=== PATIENT | male | born 1960 | race Caucasian/White ===

== ENCOUNTER → 2017-12-26 16:01 | Outpatient (CLI) | payer BC, SELFPAY ==
--- NOTE | 2017-12-26 | XR_ITS ---
XR calcaneus LT min 2V CLINICAL INDICATION: Heel pain ORDERING PHYSICIAN: Bal Heard MD PATIENT AGE: 57 years COMPARISON: None FINDINGS: There is a small calcaneal spur at 7 mm without obvious erosive change. Prominent enthesophyte is present at the Achilles insertion. No lytic or blastic changes apparent. There are mild degenerative changes of the midfoot. IMPRESSION: Small calcaneal spur and Achilles enthesophyte
== END ==
PROVIDERS: PCP Family Medicine; Visit Provider Family Medicine
DX: M79.672 Pain in left foot (principal)
CPT/HCPCS: 73650

== ENCOUNTER → 2020-02-11 08:57 | Outpatient (CLI) | payer BC, SELFPAY ==
--- NOTE | 2020-02-11 08:57 | CT_ITS ---
PROCEDURE: CT ABDOMEN PELVIS W CON CLINICAL INDICATION: prostate cancer Follow-up prostate cancer, evaluate for metastasis COMPARISON: No exams were available for comparison TECHNIQUE: IV Contrast: 75ML OPTIRAY 350 Oral Contrast 450ml Redicat Axial images obtained with sagittal and coronal reformats. All CT scans at the facility use one or more dose reduction, viz: automated exposure control, ma/kV adjustment per patient size (including targeted exams where dose is matched to indication, i.e. head), or iterative reconstruction technique. FINDINGS: LOWER THORAX: No acute finding ABDOMEN & PELVIS: The liver, spleen, pancreas have an unremarkable appearance. There is some mild nodularity of the left adrenal gland which is nonspecific. The gallbladder and right adrenal gland have an unremarkable appearance. There is an indeterminate hypodensity involving the left kidney superiorly and laterally at 9 mm. Hypodensity involves the right kidney medially at 6 mm and may be due to small renal cyst. Unremarkable appendix. There is mild thickening of the descending and sigmoid colon with scattered diverticula. No pelvic mass, adenopathy, or abnormal fluid collection is evident. There is thickening of the wall the urinary bladder which is nondistended. There are degenerative changes of the lumbar spine and hips. There is fusion of the SI joints right more extensive than left. IMPRESSION: 1. No convincing evidence of metastatic disease. 2. Indeterminate 9 mm hypodensity of the left kidney. Consider ultrasound for further evaluation to determine cystic or solid nature Dictated by: Gary Anand MD 02/12/2020 08:27 Electronically signed by Gary Anand MD in [facility] 02/12/2020 08:27
--- NOTE | 2020-02-11 08:57 | NM_ITS ---
PROCEDURE: NM BONE SCAN WHOLE BODY CLINICAL INDICATION: Prostate cancer COMPARISON: No exams were available for comparison TECHNIQUE: Dose: 26.2 mCi technetium MDP IV FINDINGS: Nonspecific periarticular activity noted at the hips, knees, feet and ankles and at the sternoclavicular and costal sternal junction with nonspecific increased activity in the lower cervical spine. No convincing evidence of metastatic disease. IMPRESSION: No convincing evidence of metastatic disease Dictated by: Gary Anadn MD 02/12/2020 08:46 Electronically signed by Gary Anand MD in [facility] 02/12/2020 08:46
[2020-02-11 10:01] LABS: Blood Urea Nitrogen 17 mg/dl (9-20); Estimated Glomerular Filt Rate 99 ml/min (>60); GFR (African American) 120 ML/MIN (>60)
== END ==
PROVIDERS: PCP Family Medicine; Visit Provider Urology
DX: C61 Malignant neoplasm of prostate (principal)
CPT/HCPCS: 36415; 74177; 78306; 82565; 84520; A9503; Q9967

== ENCOUNTER → 2020-09-08 12:21 | Outpatient (CLI) | payer BC, SELFPAY ==
--- NOTE | 2020-09-08 12:29 | XR_ITS ---
PROCEDURE: XR KUB CLINICAL INDICATION: KIDNEY STONE Follow-up renal stone COMPARISON: CT CT ABDOMEN PELVIS W CON from 02/11/2020 FINDINGS: There are 2 faint calcific densities in the left lower pelvic region which could be due to phleboliths. No other significant anomalies evident. There is fusion of the SI joints superiorly. Mild degenerative changes of the hips. IMPRESSION: As above, no acute finding Dictated by: Gary Anand MD 09/08/2020 17:06 Gary Anand MD in [facility] 09/08/2020 17:06
[2020-09-17 17:38] LABS: Specimen Type STONE
[2020-09-17 17:50] LABS: Ca oxalate dihydrate 0
[2020-09-17 17:51] LABS: Ammonium acid urate 0; Calcium bilirubinate 0; Calcium carbonate 0; Calcium phosphate 10%; Cholesterol 0; Magnesium ammon phos 90%; Sodium acid urate 0; Uric acid dihydrate 0
[2020-09-17 17:53] LABS: Photo SCANNED RESULTS
== END ==
PROVIDERS: Visit Provider Family Medicine
DX: N20.0 Calculus of kidney (principal)
CPT/HCPCS: 74018; 82370

== ENCOUNTER → 2021-01-24 15:29 | Outpatient (CLI) | payer BC, SELFPAY ==
--- NOTE | 2021-01-24 15:36 | CT_ITS ---
PROCEDURE: CT ABDOMEN PELVIS WO CON CLINICAL INDICATION: STONE PROTOCOL Left flank pain COMPARISON: CT CT ABDOMEN PELVIS W CON from 02/11/2020 TECHNIQUE: Axial images obtained with sagittal and coronal reformats. All CT scans at the facility use one or more dose reduction, viz: automated exposure control, ma/kV adjustment per patient size (including targeted exams where dose is matched to indication, i.e. head), or iterative reconstruction technique. FINDINGS: LOWER THORAX: No acute finding ABDOMEN & PELVIS: Liver, gallbladder, spleen, adrenal glands, pancreas, and kidneys have an unremarkable appearance. No renal or ureteral calculi. No hydronephrosis. No intestinal obstruction or free air. The there appears to be a diverticulum projecting medially from the descending duodenum. No intestinal obstruction or free air. No evidence of appendicitis or diverticulitis. Mild osteoarthritic changes of the hips and mild degenerative changes of the thoracic and lumbar spine. IMPRESSION: No acute finding Dictated by: Gary Anand MD 01/25/2021 12:11 Gary Anand MD in [facility] 01/25/2021 12:11
== END ==
PROVIDERS: PCP Family Medicine; Visit Provider Family Medicine
DX: N23 Unspecified renal colic (principal)
CPT/HCPCS: 74176

== ENCOUNTER → 2021-03-01 16:33 | Outpatient (CLI) | payer BC, SELFPAY ==
[2021-03-01 17:03] LABS: Basophils % 0.3 % (0.1-2.0); Eosinophils # 0.1 K/mm3 (0.0-0.4); Eosinophils % 0.3 % (0.1-12.0); Hematocrit 45.9 % (42.0-52.0); Hemoglobin 15.4 g/dL (14.1-18.0); Lymphocytes # 0.9 K/mm3 (0.7-4.5); Lymphocytes % 5.6 % (10-50); Mean Corpuscular HGB Conc 33.5 g/dL (31.8-35.4); Mean Corpuscular Hemoglobin 29.3 pg (27.0-31.2); Mean Corpuscular Volume 87.6 fl (80-94); Mean Platelet Volume 7.4 fl (7.4-10.4); Monocytes % 6.3 % (1.7-9.3); Neutrophils # 14.1 K/mm3 (1.8-7.8); Neutrophils % 87.5 % (37.0-80.0); Platelet Count 301 K/mm3 (142-424); Red Blood Count 5.24 M/mm3 (4.60-6.20); Red Cell Distribution Width 13.7 % (11.5-17.5); White Blood Count 16.2 K/mm3 (4.8-10.8)
[2021-03-01 17:07] LABS: MANUAL DIFFERENTIAL MANUAL DIFFERENTIAL (MANUAL DIFF)
[2021-03-01 18:59] LABS: Lymphocytes % 9 % (10-50); Monocytes % 8 % (2-9); Neutrophils % 83 % (42-76); Platelet Estimate Normal; RBC Morphology Normal; Total Cells Counted 100
== END ==
PROVIDERS: PCP Family Medicine; Visit Provider Physician Assistant
DX: Z20.822 Contact with and (suspected) exposure to COVID-19 (principal); D72.829 Elevated white blood cell count, unspecified
CPT/HCPCS: 36415; 85007; 85025; U0003

== ENCOUNTER 2021-03-07 22:06 | Emergency (ER) | payer BC, SELFPAY ==
[2021-03-07 22:13] VITALS: BP 169/98; PULSE 78; RESP 16; TEMP 37; O2SAT 96; BMI 37.0
--- NOTE | 2021-03-07 22:23 | ECG_ITS ---
APPROVED REPORT Exam: Resting ECG HR:71 bpm ECG Measurements Heart Rate 71 AXES MD 148 P 49 QRSd 86 QRS -2 QT 408 T -7 QTc 443 Conclusion Normal sinus rhythm Minimal voltage criteria for LVH, may be normal variant Nonspecific T wave abnormality Abnormal ECG Electronically signed by : Charles Lorenzana, 03/08/2021 17:31:59
--- NOTE | 2021-03-07 22:23 | XR_ITS ---
PROCEDURE: XR CHEST 2V CLINICAL HISTORY: chest pain COMPARISON: No exams were available for comparison FINDINGS: The cardiomediastinal silhouette and pulmonary vascularity are within normal limits. The lungs are clear without infiltrates, suspicious nodules, or pleural effusions. Degenerative changes thoracic spine. IMPRESSION: No acute findings. Dictated by: Gary Anand MD 03/08/2021 05:31 Gary Anand MD in [facility] 03/08/2021 05:31
[2021-03-07 22:41] LABS: Basophils # 0.1 K/mm3 (0-0.2); Basophils % 0.8 % (0.1-2.0); Eosinophils # 0.4 K/mm3 (0.0-0.4); Eosinophils % 3.8 % (0.1-12.0); Hemoglobin 14.1 g/dL (14.1-18.0); Lymphocytes # 2.6 K/mm3 (0.7-4.5); Lymphocytes % 23.4 % (10-50); Mean Corpuscular HGB Conc 34.4 g/dL (31.8-35.4); Mean Corpuscular Hemoglobin 29.4 pg (27.0-31.2); Mean Corpuscular Volume 85.4 fl (80-94); Mean Platelet Volume 7.4 fl (7.4-10.4); Monocytes # 0.9 K/mm3 (0.1-1.0); Monocytes % 8.1 % (1.7-9.3); Neutrophils # 7.1 K/mm3 (1.8-7.8); Neutrophils % 63.9 % (37.0-80.0); Platelet Count 430 K/mm3 (142-424); Red Cell Distribution Width 13.5 % (11.5-17.5); White Blood Count 11.1 K/mm3 (4.8-10.8)
[2021-03-07 22:43] LABS: Alanine Aminotransferase 80 U/L (12-78); Albumin Level 4.5 g/dl (3.5-5.0); Albumin/Globulin Ratio 1.3 (1.1-1.8); Alkaline Phosphatase 93 U/L (38-126); Amylase 74 U/L (30-110); Anion Gap 16.6 mEq/L (5-15); Aspartate Amino Transferase 46 U/L (17-59); Bilirubin,Total 0.5 mg/dl (0.2-1.3); Blood Urea Nitrogen 23 mg/dl (9-20); Calcium 9.8 mg/dl (8.4-10.2); Carbon Dioxide 25 mmol/L (22.0-30.0); Chloride 106 mmol/L (98-107); Creatinine Clearance Estimated 132 mL/min (50-200); Estimated Glomerular Filt Rate 76 ml/min (>60); GFR (African American) 93 ML/MIN (>60); Globulin 3.4 g/dL (1.3-3.2); Glucose 159 mg/dl (74-100); Lipase 230 U/L (23-300); Potassium 3.6 mmoL/L (3.5-5.1); Sodium 144 mmol/L (136-145); Total Protein,Serum 7.9 g/dl (6.3-8.2)
[2021-03-07 22:48] LABS: C-Reactive Protein 24.7 mg/L (0-4)
[2021-03-07 22:57] LABS: Troponin I 0.02 ng/ml (0.00-0.034)
[2021-03-07 23:02] VITALS: BP 144/91; PULSE 74; O2SAT 97
[2021-03-07 23:02] LABS: Procalcitonin 0.064 ng/mL (0.0-2.0)
[2021-03-07 23:20] LABS: Erythrocyte Sedimentation Rate 49 mm/hr (0-20)
[2021-03-07 23:30] VITALS: BP 151/89; PULSE 74; O2SAT 95
[2021-03-08] VITALS: BP 148/89; PULSE 67; O2SAT 97
[2021-03-08 00:14] VITALS: BP 151/90; PULSE 60; O2SAT 98
[2021-03-08 00:30] VITALS: BP 147/87; PULSE 63; O2SAT 98
--- NOTE | 2021-03-08 01:14 | HMH.EDGENADL ---
ED Disposition Clinical Impression: Esophageal abnormality Chest pain Qualifiers: Chest pain type: unspecified Qualified Code(s): R07.9 - Chest pain, unspecified Disposition: Home, Self-Care Condition on Discharge: Good Instructions: DI for Hiatal Hernia Additional Instructions: call pcp in am for follow up Referrals: Bal Heard MD [Primary Care Provider] - - Critical Care Critical Care Time: No Attestation: On 03/07/21, the high probability of a clinically significant, sudden or life threatening deterioration of the following system(s) required my full and direct attention, intervention and personal management. The time I documented below is in addition to time spent performing reported procedures but includes the following listed in this critical care notation. Medical Decision Making - Medical Records Medical records reviewed: Yes: I reviewed the patient's medical records. - Sean Inquiry Pt receiving controlled substance: No Vital Signs: 03/07/21 22:13 03/07/21 23:02 03/07/21 23:30 Temperature 98.6 F Temperature Source Oral Pulse Rate 74 74 Pulse Rate [Right] 78 Respiratory Rate 16 Blood Pressure 144/91 H 151/89 H Blood Pressure [Right Arm] 169/98 H Blood Pressure Mean 110 103 Blood Pressure Mean [Right Arm] 121 Blood Pressure Source [Right Arm] Automatic Cuff Blood Pressure Position [Right Arm] Supine 02 Sat by Pulse Oximetry 96 97 95 Oxygen Delivery Method Room Air 03/08/21 00:00 03/08/21 00:14 03/08/21 00:30 Temperature Temperature Source Pulse Rate 67 60 63 Pulse Rate [Right] Respiratory Rate Blood Pressure 148/89 H 151/90 H 147/87 H Blood Pressure [Right Arm] Blood Pressure Mean 105 110 107 Blood Pressure Mean [Right Arm] Blood Pressure Source [Right Arm] Blood Pressure Position [Right Arm] 02 Sat by Pulse Oximetry 97 98 98 Oxygen Delivery Method - Lab Data Lab results reviewed: Yes: I reviewed the patient's lab results. Lab Results 03/07/21 22:20: WBC 11.1 H, RBC 4.80, Hgb 14.1, Hct 41.0 L, MCV 85.4, MCH 29.4, MCHC 34.4, RDW 13.5, Plt Count 430 H, MPV 7.4, Neut % (Auto) 63.9, Lymph % (Auto) 23.4, [place] % (Auto) 8.1, Eos % (Auto) 3.8, Baso % (Auto) 0.8, Neut # (Auto) 7.1, Lymph # (Auto) 2.6, [place] # (Auto) 0.9, Eos # (Auto) 0.4, Baso # (Auto) 0.1, ESR 49 H 03/07/21 22:20: Sodium 144, Potassium 3.6, Chloride 106, Carbon Dioxide 25, Anion Gap 16.6 H, BUN 23 H, Creatinine 1.00, Estimated Creat Clear 132, Estimated GFR 76, Est GFR ( Amer) 93, Glucose 159 H, Calcium 9.8, Total Bilirubin 0.5, AST 46, ALT 80 H, Alkaline Phosphatase 93, Troponin I 0.02, C-Reactive Protein 24.7 H, Total Protein 7.9, Albumin 4.5, Globulin 3.4 H, Albumin/Globulin Ratio 1.3, Amylase 74, Lipase 230, Procalcitonin 0.064 Result diagrams: 03/07/21 22:20 03/07/21 22:20 Orders (Tests/Meds): ED MEDICATIONS Generic Name Dose Route Start Last Admin Trade Name Freq PRN Reason Stop Dose Admin Sodium Chloride 1,000 mls @ 999 mls/hr 03/07/21 22:30 03/07/21 22:37 Sod Chlor 0.9% 1000ml Bag IV 03/07/21 23:30 999 mls/hr .Q1H1M LIZET Administration Sodium Chloride 8 ml 03/07/21 22:23 Sodium Chloride 0.9% 10ml Vial IV 04/06/21 22:22 NEEDED PRN dilute pepcid Discontinued Medications Generic Name Dose Route Start Last Admin Trade Name Freq PRN Reason Stop Dose Admin Aspirin 324 mg 03/07/21 22:38 03/07/21 22:39 Aspirin 81mg Chewable Tablet PO 03/07/21 22:39 324 mg ONCE ONE Administration Famotidine 20 mg 03/07/21 22:23 03/07/21 22:37 Famotidine 20mg/2ml Vial IV 03/07/21 22:24 20 mg ONCE ONE Administration Ketorolac Tromethamine 30 mg 03/07/21 22:23 03/07/21 22:37 Ketorolac 30mg/Ml Vial IV 03/07/21 22:24 30 mg ONCE ONE Administration Metoclopramide HCl 10 mg 03/07/21 22:23 03/07/21 22:37 Metoclopramide Hcl 10mg/2ml Vial IVP 03/07/21 22:24 10 mg ONCE ONE Administrati
[2021-03-08 01:33] LABS: Troponin I 0.02 ng/ml (0.00-0.034)
[2021-03-08 01:43] VITALS: BP 145/82; PULSE 63; RESP 14; TEMP 37; O2SAT 97
== END 2021-03-08 01:46 | disposition home or self-care (01) ==
PROVIDERS: Emergency Provider Emergency Medicine; PCP Family Medicine
DX: K22.9 Disease of esophagus, unspecified (principal); R13.10 Dysphagia, unspecified; E11.65 Type 2 diabetes mellitus with hyperglycemia; I10 Essential (primary) hypertension; Z88.1 Allergy status to other antibiotic agents; Z79.899 Other long term (current) drug therapy
CPT/HCPCS: 71046; 80053; 82150; 83690; 84145; 84484; 85025; 85651; 86140; 93005; 96375; 99282; J2405

== ENCOUNTER → 2021-12-11 14:42 | Outpatient (CLI) | payer OTHER, SELFPAY ==
--- NOTE | 2021-12-11 15:01 | MR_ITS ---
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 vertigo x5wks. weakness. FINDINGS: Multiplanar MR imaging of the brain was performed without contrast. There is no evidence of intracranial hemorrhage or mass. The ventricular size is normal. There is no evidence of shift of the midline structures. No abnormal extra-axial fluid collection is identified. The posterior fossa and brainstem have an unremarkable appearance. No area of abnormal restricted diffusion is identified. Normal major vessel vascular flow voids are seen. IMPRESSION: Unremarkable brain with no acute intracranial abnormality. Reviewed, Interpreted and Dictated by Handy Hart III, MD Transcribed by Candie Napier Authenticated by Handy Hart III, MD on 12/11/2021 04:33:01 PM [facility]
== END ==
PROVIDERS: PCP Family Medicine; Visit Provider Family Medicine
DX: G51.0 Bell's palsy (principal); R42 Dizziness and giddiness
CPT/HCPCS: 70551

== ENCOUNTER 2021-12-13 15:28 | Inpatient (IN) | payer OTHER, SELFPAY ==
[2021-12-13] VITALS (10 sets, daily range): BP systolic 100–155; BP diastolic 64–135; PULSE 68–120; RESP 13–20; TEMP 36.1–36.7; O2SAT 95–100; BMI 33.0; BMI 29.5
--- NOTE | 2021-12-13 17:38 | HMH.EDGENADL ---
ED Disposition Clinical Impression: HARINI (acute kidney injury) Atrial flutter Qualifiers: Atrial flutter type: unspecified Qualified Code(s): I48.92 - Unspecified atrial flutter Disposition: Admitted As Inpatient Condition on Discharge: Good Referrals: Bal Heard MD [Primary Care Provider] - - Critical Care Critical Care Time: Yes (35 min) Attestation: On 12/13/21, the high probability of a clinically significant, sudden or life threatening deterioration of the following system(s) required my full and direct attention, intervention and personal management. The time I documented below is in addition to time spent performing reported procedures but includes the following listed in this critical care notation. Vital system(s) involved:: Circulatory Failure, Central Nervous System, Metabolic Failure, Respiratory Failure My critical care processes included: Assessment & monitoring of V/S, Initial and Re-exams, Data Review/Interpretation, Coordinating Care, Medication Orders and management, Documentation Medical Decision Making - Sean Inquiry Pt receiving controlled substance: No Vital Signs: 12/13/21 15:30 12/13/21 19:12 12/13/21 19:15 Temperature 98.1 F Temperature Source Oral Pulse Rate 86 89 Pulse Rate [Apical] 83 Respiratory Rate 20 15 14 Blood Pressure Blood Pressure [Right Arm] 155/135 H Blood Pressure Mean Blood Pressure Mean [Right Arm] 141 Blood Pressure Source [Right Arm] Automatic Cuff Blood Pressure Position [Right Arm] Sitting 02 Sat by Pulse Oximetry 95 99 99 Oxygen Delivery Method Room Air 12/13/21 19:17 12/13/21 19:30 12/13/21 19:31 Temperature Temperature Source Pulse Rate 68 78 Pulse Rate [Apical] Respiratory Rate 17 13 13 Blood Pressure 116/64 100/79 L Blood Pressure [Right Arm] Blood Pressure Mean 84 82 Blood Pressure Mean [Right Arm] Blood Pressure Source [Right Arm] Blood Pressure Position [Right Arm] 02 Sat by Pulse Oximetry 100 100 Oxygen Delivery Method - Lab Data Lab Results 12/13/21 18:45: WBC 13.2 H, RBC 5.34, Hgb 16.0, Hct 51.0, MCV 95.4 H, MCH 30.0, MCHC 31.5 L, RDW 13.1, Plt Count 295, MPV 9.5, Neut % (Auto) 91.2 H, Lymph % (Auto) 3.0 L, [place] % (Auto) 5.4, Eos % (Auto) 0.0 L, Baso % (Auto) 0.3, Neut # (Auto) 12.1 H, Lymph # (Auto) 0.4 L, [place] # (Auto) 0.7, Eos # (Auto) 0.0, Baso # (Auto) 0.0, Total Counted 100, Neutrophils % (Manual) 92 H, Lymphocytes % (Manual) 2 L, Monocytes % (Manual) 6, Platelet Estimate Normal, RBC Morphology Normal 12/13/21 18:45: Sodium 117 L, Potassium 5.2 H, Chloride 75 L, Carbon Dioxide 17 L, Anion Gap 30.2 H, BUN 114 H*, Creatinine 2.50 H, Estimated Creat Clear 46, Estimated GFR 26 L, Est GFR ( Amer) 32 L, Glucose 1037 H*, Calcium 9.0, Total Bilirubin 1.0, AST 32, ALT 52, Alkaline Phosphatase 111, Troponin I 0.05 H, Total Protein 6.4, Albumin 3.7, Globulin 2.7, Albumin/Globulin Ratio 1.4 12/13/21 18:45: SARS-CoV-2 (PCR) Not detected, Influenza A Untype (PCR) Not detected, Influenza Type B (PCR) Not detected 12/13/21 18:45: PT 12.4, INR 1.11 H, APTT 27.1 Result diagrams: 12/13/21 18:45 12/13/21 18:45 Orders (Tests/Meds): ED MEDICATIONS Generic Name Dose Route Start Last Admin Trade Name Freq PRN Reason Stop Dose Admin Diltiazem HCl 100 mg/ Sodium 100 mls @ 5 mls/hr 12/13/21 19:00 12/13/21 19:15 Chloride IV 01/12/22 18:59 5 mls/hr .Q20H LIZET Administration Protocol Sodium Chloride 1,000 mls @ 999 mls/hr 12/13/21 19:45 Sod Chlor 0.9% 1000ml Bag IV 12/13/21 20:45 .Q1H1M LIZET Sodium Chloride 1,000 mls @ 999 mls/hr 12/13/21 19:45 Sod Chlor 0.9% 1000ml Bag IV 12/13/21 20:45 .Q1H1M LIZET Sodium Chloride 1,000 mls @ 999 mls/hr 12/13/21 19:45 Sod Chlor 0.9% 1000ml Bag IV 12/13/21 20:45 .Q1H1M LIZET Insulin Human Regular 100 unit 101 mls @ 10.537 mls/hr 12/13/21 19:45 12/13/21 19:42 / Sodium Chloride IV 01/12/22 19:44 1
--- NOTE | 2021-12-13 17:44 | CT_ITS ---
PROCEDURE INFORMATION: Exam: CT Head Without Contrast Exam date and time: 12/13/2021 5:44 PM Age: 61 years old Clinical indication: Dizziness and speech disturbance and other: Vertigo; Aphasia; Additional info: Slurred speech, ataxia TECHNIQUE: Imaging protocol: Computed tomography of the head without contrast. Total images: 292 Radiation optimization: All CT scans at this facility use at least one of these dose optimization techniques: automated exposure control; mA and/or kV adjustment per patient size (includes targeted exams where dose is matched to clinical indication); or iterative reconstruction. COMPARISON: MR HEAD/BRAIN WO CON 12/11/2021 3:13 PM FINDINGS: Brain: Mild generalized atrophy. Mild bilateral white matter hypodensities which are nonspecific but most commonly associated with chronic microvascular ischemia in this age group. No extra-axial fluid collections. No evidence of acute intracranial hemorrhage. Ward-white differentiation is well maintained. No CT evidence of large territory acute or subacute intracranial ischemia/infarct. No intracranial mass lesions. No midline shift or herniation. Cerebral ventricles: Ventricles normal. Paranasal sinuses: Visualized paranasal sinuses are clear. Mastoid air cells: Visualized mastoid air cells are clear. Orbital cavity: Visualized orbital contents demonstrate no acute abnormality. Vasculature: No asymmetric vascular hyperdensities suggestive of thrombosis are identified. Bones/joints: The calvarium and visualized facial bones are intact. There is a 12 mm rounded expansile lesion associated with the root of a right maxillary premolar suggesting an odontogenic cyst. It demonstrates nonaggressive features favoring a benign process. Recommend nonemergent dental consult. Soft tissues: The scalp and visualized soft tissues demonstrate no acute abnormality. Other findings: The IACs are grossly normal. The sella is grossly normal. IMPRESSION: 1. No acute intracranial process. No intracranial hemorrhage or mass effect. 2. Atrophy and chronic microvascular changes consistent with age. 3. 12 mm expansile low-density lesion associated with a right maxillary premolar root suggesting an odontogenic cystic lesion demonstrating nonaggressive features. Recommend nonemergent dental consult.
--- NOTE | 2021-12-13 18:48 | XR_ITS ---
PROCEDURE INFORMATION: Exam: XR Chest Exam date and time: 12/13/2021 6:48 PM Age: 61 years old Clinical indication: Shortness of breath; Additional info: Aflutter TECHNIQUE: Imaging protocol: XR of the chest. Views: 1 view. Total images: 1 COMPARISON: CR XR CHEST 2V 03/07/2021 10:31 PM FINDINGS: Lungs: Low lung volumes. Pulmonary vasculature grossly normal. No gross pulmonary infiltrates or edema pattern. Granulomatous calcification in the left apex unchanged. Pleural spaces: No pleural effusion. No pneumothorax. Heart/Mediastinum: Heart size normal. No tracheal/mediastinal shift. Vasculature: Mild aortic ectasia/tortuosity. Bones/joints: No acute osseous abnormalities are identified. Moderate thoracic spondylosis. IMPRESSION: No acute thoracic process. No significant change from 03/07/2021.
--- NOTE | 2021-12-13 18:48 | ECG_ITS ---
APPROVED REPORT Exam: Resting ECG HR:101 bpm ECG Measurements Heart Rate 101 AXES PA P 266 QRSd 122 QRS -20 QT 322 T 238 QTc 417 Conclusion Atrial flutter with variable AV block with premature ventricular or aberrantly conducted complexes Nonspecific intraventricular conduction delay ST & T wave abnormality, consider inferior ischemia ST & T wave abnormality, consider anterolateral ischemia Abnormal ECG Electronically signed by : Charles Lorenzana MD 12/14/2021 17:33:39
--- NOTE | 2021-12-13 18:49 | PC.NURSE ---
Patient was noted to have a heartrate of 170 after previously not having an elevated heart rate. EKG was performed by Ladonna Conte and patient was moved to a cardiac room. Patient continued to have an elevated heart rate. MD notified. Adenosine ordered and given per md. Patient remains alert and oriented and stable.
[2021-12-13 19:08] LABS: Coronavirus 19, PCR Not Detected (NotDetected); Influenza A, PCR Not Detected (NotDetected); Influenza B, PCR Not Detected (NotDetected)
[2021-12-13 19:10] LABS: Basophils % 0.3 % (0.1-2.0); Lymphocytes # 0.4 K/mm3 (0.7-4.5); Mean Corpuscular HGB Conc 31.5 g/dL (31.8-35.4); Mean Corpuscular Volume 95.4 fl (80-94); Mean Platelet Volume 9.5 fl (7.4-10.4); Monocytes # 0.7 K/mm3 (0.1-1.0); Monocytes % 5.4 % (1.7-9.3); Neutrophils # 12.1 K/mm3 (1.8-7.8); Neutrophils % 91.2 % (37.0-80.0); Platelet Count 295 K/mm3 (142-424); Red Blood Count 5.34 M/mm3 (4.60-6.20); Red Cell Distribution Width 13.1 % (11.5-17.5); White Blood Count 13.2 K/mm3 (4.8-10.8)
[2021-12-13 19:14] LABS: MANUAL DIFFERENTIAL MANUAL DIFFERENTIAL (MANUAL DIFF)
[2021-12-13 19:24] LABS: Lymphocytes % 2 % (10-50); Monocytes % 6 % (2-9); Neutrophils % 92 % (42-76); Platelet Estimate Normal; RBC Morphology Normal; Total Cells Counted 100
[2021-12-13 19:27] LABS: Troponin I 0.05 ng/ml (0.00-0.034)
[2021-12-13 19:30] LABS: Anion Gap 30.2 mEq/L (5-15); Carbon Dioxide 17 mmol/L (22.0-30.0); Potassium 5.2 mmoL/L (3.5-5.1); Sodium 117 mmol/L (136-145)
[2021-12-13 19:31] LABS: Alanine Aminotransferase 52 U/L (12-78); Albumin Level 3.7 g/dl (3.5-5.0); Albumin/Globulin Ratio 1.4 (1.1-1.8); Aspartate Amino Transferase 32 U/L (17-59); Creatinine Clearance Estimated 46 mL/min (50-200); Estimated Glomerular Filt Rate 26 ml/min (>60); GFR (African American) 32 ML/MIN (>60); Globulin 2.7 g/dL (1.3-3.2); Total Protein,Serum 6.4 g/dl (6.3-8.2)
[2021-12-13 19:32] LABS: Alkaline Phosphatase 111 U/L (38-126)
[2021-12-13 19:33] LABS: Blood Urea Nitrogen 114 mg/dl (9-20); Chloride 75 mmol/L (98-107); Glucose 1037 mg/dl (74-100)
--- NOTE | 2021-12-13 19:49 | PC.NURSE ---
paged dr bond. spoke with and discussed plan of care. paged dr frederic casarez.
[2021-12-13 19:54] LABS: Activated Partial Thrombo Time 27.1 seconds (22.8-30.6); INR 1.11 (0.9-1.1); Prothrombin Time 12.4 seconds (10.1-12.5)
[2021-12-13 20:04] LABS: ABG Base Excess -11.4 mmol/L (-2.4-2.3); ABG HCO3 13.7 mmhg (22.0-26.0); ABG Oxygen Saturation 98 % (90-100); ABG PCO2 23.3 mmhg (35.0-45.0); ABG PH 7.39 mmol/L (7.35-7.45); ABG PO2 100.1 mmhg (80-100); ABG TCO2 14.4 mmhg (23-27); Allen's Test Acceptable; Source Left Radial
[2021-12-13 20:04] LABS: Microscopic, Urine URINE MICROSCOPIC (MICROSCOPIC)
[2021-12-13 20:06] LABS: Acetone, Serum (Rapid) Moderate (None Detect)
[2021-12-13 20:06] LABS: Appearance,Urine CLEAR (Clear); Bilirubin,Urine Negative (Negative); Blood, Urine 3+ (Negative); Color,Urine YELLOW (Yellow); Glucose,Urine (UA) 3+ (Negative); Ketones,Urine TRACE (Negative); Leukocyte Esterase,Urine 1+ (Negative); Nitrate,Urine Negative (Negative); Protein,Urine TRACE (Negative); Urobilinogen,Urine 0.2 EU/dl (0.2)
[2021-12-13 20:13] LABS: Lactic Acid 1.5 mmol/L (0.7-2.1)
[2021-12-13 20:21] LABS: RBC,Urine 50-100 #/hpf (0-3); WBC,Urine 20-50 #/hpf (0-3)
[2021-12-13 20:22] LABS: Bacteria,Urine Trace /lpf
[2021-12-13 20:31] LABS: Hemoglobin A1C > 14.0 % (4.0-6.0)
--- NOTE | 2021-12-13 21:27 | PC.NURSE ---
patient up to floor via stretcher @ this time
[2021-12-13 21:57] LABS: Glucose,Random 705 mg/dL (74-100)
--- NOTE | 2021-12-13 22:06 | PC.NURSE ---
pt arrived to floor at 2126, insulin gtt at 10, cardizem at 10 at this time
[2021-12-13 22:23] LABS: Potassium 5.4 mmoL/L (3.5-5.1); Sodium 118 mmol/L (136-145)
[2021-12-13 22:26] LABS: Anion Gap 32.4 mEq/L (5-15); Calcium 9.1 mg/dl (8.4-10.2); Carbon Dioxide 17 mmol/L (22.0-30.0); Creatinine Clearance Estimated 45 mL/min (50-200); Estimated Glomerular Filt Rate 29 ml/min (>60); GFR (African American) 35 ML/MIN (>60)
[2021-12-13 22:40] LABS: Blood Urea Nitrogen 116 mg/dl (9-20); Chloride 74 mmol/L (98-107); Glucose 1039 mg/dl (74-100)
[2021-12-13 23:47] LABS: Glucose,Random 585 mg/dL (74-100)
[2021-12-14] VITALS (17 sets, daily range): BP systolic 89–142; BP diastolic 37–77; PULSE 75–148; RESP 16–20; TEMP 36.4–36.5; O2SAT 95–99; BMI 29.5
[2021-12-14 00:22] LABS: POC Glucose,Bedside 484 (70-110)
[2021-12-14 02:17] LABS: POC Glucose,Bedside 325 (70-110)
[2021-12-14 02:17] LABS: POC Glucose,Bedside 397 (70-110)
[2021-12-14 02:51] LABS: Chloride 95 mmol/L (98-107); Potassium 3.2 mmoL/L (3.5-5.1); Sodium 132 mmol/L (136-145)
--- NOTE | 2021-12-14 02:53 | PC.NURSE ---
has been at bedside t/o shift, explained to her the importance of getting accurate measurements of urine output, discussed pt's prostate removal and his inability to hold it, she did state that with her at bedside he should be able to use urinal for accurate measurement of urine, pt did have one episode of incontinence before arrived to bedside,
[2021-12-14 02:54] LABS: Anion Gap 16.2 mEq/L (5-15); Carbon Dioxide 24 mmol/L (22.0-30.0); Creatinine Clearance Estimated 58 mL/min (50-200); Estimated Glomerular Filt Rate 39 ml/min (>60); GFR (African American) 47 ML/MIN (>60)
[2021-12-14 02:55] LABS: Calcium 8.5 mg/dl (8.4-10.2); Glucose 290 mg/dl (74-100)
[2021-12-14 02:57] LABS: Blood Urea Nitrogen 107 mg/dl (9-20)
[2021-12-14 07:02] LABS: Basophils # 0.1 K/mm3 (0-0.2); Basophils % 0.5 % (0.1-2.0); Eosinophils # 0.1 K/mm3 (0.0-0.4); Eosinophils % 0.8 % (0.1-12.0); Hematocrit 42.7 % (42.0-52.0); Hemoglobin 14.8 g/dL (14.1-18.0); Lymphocytes # 0.8 K/mm3 (0.7-4.5); Lymphocytes % 5.2 % (10-50); Mean Corpuscular HGB Conc 34.7 g/dL (31.8-35.4); Mean Corpuscular Hemoglobin 30.1 pg (27.0-31.2); Mean Corpuscular Volume 86.8 fl (80-94); Mean Platelet Volume 10.5 fl (7.4-10.4); Monocytes # 1.3 K/mm3 (0.1-1.0); Monocytes % 8.8 % (1.7-9.3); Neutrophils # 12.4 K/mm3 (1.8-7.8); Neutrophils % 84.7 % (37.0-80.0); Platelet Count 213 K/mm3 (142-424); Red Blood Count 4.92 M/mm3 (4.60-6.20); Red Cell Distribution Width 13.1 % (11.5-17.5); White Blood Count 14.6 K/mm3 (4.8-10.8)
--- NOTE | 2021-12-14 07:03 | PC.NURSE ---
insulin gtt infusing at 1, diltiazem infusing at 5, NS bolus given due to hypotension per Dr. Heard, 0700 FSBS 152 has remained on 2L NC with O2 sats 97-99%
[2021-12-14 07:05] LABS: POC Glucose,Bedside 138 (70-110)
[2021-12-14 07:05] LABS: POC Glucose,Bedside 235 (70-110)
[2021-12-14 07:05] LABS: POC Glucose,Bedside 182 (70-110)
[2021-12-14 07:05] LABS: POC Glucose,Bedside 150 (70-110)
[2021-12-14 07:05] LABS: POC Glucose,Bedside 152 (70-110)
--- NOTE | 2021-12-14 07:28 | PC.NURSE ---
Addendum entered by Faina Trinh RN 12/14/21 09:07: 0905-HR 130-145 Cardizem gtt increased to 20mcg/min @ this time Addendum entered by Faina Trinh RN 12/14/21 07:46: Pt continues to have HR between 138-146. Cardizem gtt increased to 15mcg/min @ this time. Original Note: Pt HR maintaining 124-144. Cardizem gtt increased to 10mcg/min @ this time
[2021-12-14 07:42] LABS: Anion Gap 11.8 mEq/L (5-15); Calcium 7.8 mg/dl (8.4-10.2); Carbon Dioxide 22 mmol/L (22.0-30.0); Chloride 102 mmol/L (98-107); Creatinine Clearance Estimated 74 mL/min (50-200); Estimated Glomerular Filt Rate 52 ml/min (>60); GFR (African American) 63 ML/MIN (>60); Glucose 155 mg/dl (74-100); Potassium 3.8 mmoL/L (3.5-5.1); Sodium 132 mmol/L (136-145)
--- NOTE | 2021-12-14 08:00 | CA_ITS ---
APPROVED REPORT EXAM: Comprehensive 2D, Doppler, and color-flow Echocardiogram [employer] Supervisor: Velma Dempsey CRT Ht: 5 ft 10 in Wt: 230lbs BSA: 2.21 BP: 101/61 mmHg Indications: Atrial Fibrillation, Diabetes, Atrial Flutter, Hypertension/HDD, prostate ca, bells palsy 2D Dimensions LVOT 1.84 cm (M/F) 1.5-2.5 M-Mode Dimensions RVDd 2.24 cm (0.9-2.6) LA Diam 3.45 cm (1.9-4.0) LVDd 4.07 cm (3.5-5.7) Ao Diam 3.47 cm (2.0-3.7) LVDs 2.28 cm (3.5-5.7) IVSd 2.02 cm (0.6-1.1) PWd 1.10 cm (0.6-1.1) EF (Teich) 75.70% FS 44.00% EDV (Teich) 72.90 mL ESV (Teich) 17.70 mL LV Diastology E Decel Time 220.00 (160-240 msec) E/A Ratio 1.60 Aortic Valve AO Peak GR. 7.40 mmHg Mitral Valve MV E Max Efra. 51.00 (40-130 cm/s) MV A Velocity 32.00 (40-130 cm/s) E/A Ratio 1.60 MV Decel. Time 220.00 (160-240 ms) MV PHT 64.00 ms Pulmonary Valve PV Peak Velocity 88.00 (50-150 cm/s) Tricuspid Valve TR P. Velocity 290.00 cm/s RAP Estimate 10.00 mmHg RVSP 43.70 mmHg Left Ventricle Left atrium is mildly enlarged, left ventricular normal size, mild concentric left ventricular hypertrophy, visually estimated ejection fraction 55% with no obvious regional wall motion abnormality, diastolic parameters are inconclusive. Right Ventricle Right atrium and right ventricle moderately enlarged with normal contractility. Aortic Valve Aortic valve is minimally thickened and fibrosed, there is no aortic stenosis or aortic insufficiency. Mitral Valve Mitral valve is grossly normal, there is trace mitral regurgitation Tricuspid Valve Tricuspid valve is grossly normal, there is trace tricuspid regurgitation, tricuspid regurgitation jet versus inadequate for calculation of the right ventricular systolic pressure. Pulmonic Valve Pulmonic valve is poorly visualized. Great Vessels Aortic root is normal size. Inferior vena cava is poorly visualized. Pericardium No significant pericardial effusion noted. Conclusion 1. Biatrial enlargement, normal left ventricular size, mild concentric left ventricular hypertrophy visually estimated ejection fraction 55% with no obvious regional wall motion abnormality. 2. Moderately enlarged right ventricle with normal contractility. 3. Trace mitral and tricuspid regurgitation. 4. No significant pericardial effusion noted. 5. Inferior vena cava is poorly visualized. Electronically signed by : Bahman Glaser MD 12/14/2021 12:53:52
--- NOTE | 2021-12-14 08:17 | HMH.CNCARD ---
History of Present Illness Consult date: 12/14/21 Requesting physician: Bal Heard Chief complaint: A. flutter with RVR Additional Medical History:: 1. DM, treated for about 5 yrs (2016) 2. Bourgeois's Palsy, 10/2021 3. HTN History of present illness: 61 yo WM admitted for A. flutter with RVR and hyperosmolar state (Blood sugar was >1000). Relates weakness and vertigo symptoms for 3-4 wks for which he has been on steroids for 3 wks for treatment of Bourgeois's palsy. Decreased PO intake due to Bourgeois's palsy. No prior CAD history or tobacco use. On IV dilitiazem but BP borderline low (around 100 mm Hg) with uncontrolled heart rate of 110-140's bpm. [facility] History Medical History: Reports:: Cancer, Diabetes Mellitus Type 2, Hypertension Denies:: Diabetes Mellitus Type 1, Internal Pacemaker, MRSA, Seizures *Have you ever received a pneumonia vaccine?: No *Have you received a flu vaccine this season?: No Other Medical History: Denies: Blood Transfusion Reaction Laterality Cases: Bilateral: Carpal Tunnel Release Other Surgeries: Yes: No Previous Surgery. No: Pacemaker Amputation: No Fractures: No - *Social History Smoking Status: Never smoker # Packs/Day (cigarettes): 0 #Yrs smoked (if former smoker): 0 Alcohol Intake: never Alcohol Intake Frequency:: a few times a week Substance Use Type: denies use *Occupational Status:: unemployed Housing: house Household Members: spouse *Travel in the last 8 weeks: None Family Hx:: No significant family history Meds Home Medications Medication Instructions Recorded Confirmed Type amlodipine 5 mg tablet 5 mg PO DAILY 90 Days #90 01/22/18 12/13/21 History Lisinopril/Hydrochlorothiazide 1 tab PO DAILY 12/13/21 12/13/21 History [Lisinopril-Hctz 10-12.5 mg Tab*] Metoprolol Succinate [Metoprolol 50 mg PO DAILY 12/13/21 12/13/21 History Succinate 50mg Tablet*] Naproxen [Naproxen 500mg tab] 500 mg PO BID 12/13/21 12/13/21 History Gabapentin [Gabapentin 100mg Cap] 100 mg PO TID 12/14/21 12/14/21 History Metformin HCl 500 mg PO DAILY 12/14/21 12/14/21 History Prochlorperazine Maleate 10 mg PO TID 12/14/21 12/14/21 History [Compazine 10mg tablet] predniSONE [Prednisone 20mg 20 mg PO BID 12/14/21 12/14/21 History Tab] Allergies Allergy/AdvReac Type Severity Reaction Status Date / Time amoxicillin Allergy Unknown Verified 12/13/21 23:50 Exam Vital signs and Labs for Last 24 Hours: Temp Pulse Resp BP Pulse Ox 97.6 F 146 H 18 115/77 99 12/14/21 00:00 12/14/21 07:34 12/14/21 07:34 12/14/21 07:34 12/14/21 07:34 Laboratory Results - last 24 hr 12/13/21 18:45: WBC 13.2 H, RBC 5.34, Hgb 16.0, Hct 51.0, MCV 95.4 H, MCH 30.0, MCHC 31.5 L, RDW 13.1, Plt Count 295, MPV 9.5, Neut % (Auto) 91.2 H, Lymph % (Auto) 3.0 L, [place] % (Auto) 5.4, Eos % (Auto) 0.0 L, Baso % (Auto) 0.3, Neut # (Auto) 12.1 H, Lymph # (Auto) 0.4 L, [place] # (Auto) 0.7, Eos # (Auto) 0.0, Baso # (Auto) 0.0, Total Counted 100, Neutrophils % (Manual) 92 H, Lymphocytes % (Manual) 2 L, Monocytes % (Manual) 6, Platelet Estimate Normal, RBC Morphology Normal 12/13/21 18:45: Sodium 117 L, Potassium 5.2 H, Chloride 75 L, Carbon Dioxide 17 L, Anion Gap 30.2 H, BUN 114 H*, Creatinine 2.50 H, Estimated Creat Clear 46, Estimated GFR 26 L, Est GFR ( Amer) 32 L, Glucose 1037 H*, Calcium 9.0, Total Bilirubin 1.0, AST 32, ALT 52, Alkaline Phosphatase 111, Troponin I 0.05 H, Total Protein 6.4, Albumin 3.7, Globulin 2.7, Albumin/Globulin Ratio 1.4 12/13/21 18:45: SARS-CoV-2 (PCR) Not detected, Influenza A Untype (PCR) Not detected, Influenza Type B (PCR) Not detected 12/13/21 18:45: Acetone Level Moderate 12/13/21 18:45: Hemoglobin A1c > 14.0 H 12/13/21 18:45: PT 12.4, INR 1.11 H, APTT 27.1 12/13/21 18:45: Sodium 118 L, Potassium 5.4 H, Chloride 74 L, Carbon Dioxide 17 L, Anion Gap 32.4 H, BUN 116 H*, Creatinine 2.30 H, Estimated Creat Clear 45, Estimated GFR 29 L, Est GFR ( Amer) 35 L, Glucose 1
--- NOTE | 2021-12-14 08:21 | PC.NURSE ---
Addendum entered by Faina Trinh RN 12/14/21 09:22: 0900 FSBS 325. Gtt titrated to 4mL/hr. Original Note: 0800 FSBS 293. Gtt titrated to 2mL/hr. VO from MD Heard to change pt's fluids to NS w/ 20 K+ @ 200mL/hr. Orders received and carried out
[2021-12-14 08:25] LABS: Acetone, Serum (Rapid) Small (None Detect)
--- NOTE | 2021-12-14 08:25 | CA_ITS ---
APPROVED REPORT EXAM: Comprehensive 2D, Doppler, and color-flow Echocardiogram Houseman: Paola Arteaga RT(R) Ht: 5 ft 10 in Wt: 230lbs BSA: 2.21 BP: 101/61 mmHg Indications: Aflutter, AFIB with RVR. Procedure After obtaining informed consent, patient underwent transesophageal echo in the [facility]. Type of Sedation : Conscious Sedation Sedation was administered by Kevin Roy C.R.N.A. Transesophageal probe was inserted and advanced into esophagus without difficulty by Dr. Sarah Lee. The LISA was performed without complications. Synchronized Cardioversion attempted: Successful Synchronized Cardioversion acheived with 200 Joules after 1 attempt(s). Rhythm following Synchronized Cardioversion: Normal Sinus Rhythm Throughout the procedure, the blood pressure, pulse oximetry, cardiac rhythm, and rate were monitored. The patient tolerated the procedure without adverse effects. Recovery from conscious sedation was uneventful and vital signs were stable. Left Ventricle Left ventricular is normal size, mild concentric left ventricular hypertrophy, estimated ejection fraction 55% with no regional wall motion abnormality. Right Ventricle Right ventricle is moderately enlarged with normal contractility. Atria Left atrium is mildly enlarged. Left atrial appendage is free of thrombus. There is adequate appendage flow by spectral Doppler. Right atrium is moderately enlarged. Interatrial septum is intact, there is no flow across the interatrial septum, agitated saline contrast study fails to identify intracardiac shunt. Aortic Valve Aortic valve is minimally thickened and calcified without aortic stenosis or aortic insufficiency. Mitral Valve Mitral valve is grossly normal, there is mild mitral regurgitation. Tricuspid Valve Tricuspid valve is grossly normal, there is mild tricuspid regurgitation. Pulmonic Valve Pulmonic valve is grossly normal. Great Vessels Aortic root is normal size. There is no aneurysm or dissection seen in the ascending arch or descending thoracic aorta. Pericardium No significant pericardial effusion noted. Conclusion 1. Biatrial enlargement, normal left ventricular size, mild concentric left ventricular hypertrophy, visually estimated ejection fraction 55% with no obvious regional wall motion abnormality, no thrombus seen in the left atrium or left atrial appendage. 2. Moderately enlarged right ventricle with normal contractility. 3. Mild mitral and tricuspid regurgitation. 4. Agitated saline contrast study fails to identify intracardiac shunt 5. No significant pericardial effusion noted. Electronically signed by : Bahman Glaser MD 12/14/2021 14:06:37
[2021-12-14 08:27] LABS: Magnesium 2.8 mg/dl (1.6-2.3)
--- NOTE | 2021-12-14 08:40 | HMH.PHAVTE ---
[facility] Pharmacy VTE Monitoring - Patient Demographics Admission date: 12/13/21 Report Date: 12/14/21 Time: 08:41 Allergies/Adverse Reactions: Patient Allergies amoxicillin Allergy (Unknown, Verified 12/13/21 23:50) Height: 1.78 m Weight: 93.44 kg Patient Problems: Current Active Problems HARINI (acute kidney injury) (Acute) Atrial flutter (Acute) Hyperosmolar hyperglycemic state (HHS) (Acute) - VTE Risk Labs: VTE Related Lab Results Hgb 14.8 g/dL (14.1-18.0) 12/14/21 06:34 Hct 42.7 % (42.0-52.0) 12/14/21 06:34 Plt Count 213 K/mm3 (142-424) D 12/14/21 06:34 PT 12.4 seconds (10.1-12.5) 12/13/21 18:45 INR 1.11 (0.9-1.1) H 12/13/21 18:45 APTT 27.1 seconds (22.8-30.6) 12/13/21 18:45 BUN 107 mg/dl (9-20) H* 12/14/21 02:40 Creatinine 1.80 mg/dl (0.66-1.25) H D 12/14/21 02:40 Estimated Creat Clear 58 mL/min (50-200) 12/14/21 02:40 VTE Score: 6 VTE Risk Level: Moderate Risk - Prophylaxis VTE Prophylaxis Ordered?: Yes Types of VTE Prophylaxis: TEDS Knee High Location of Applied Device: Bilateral Lower Extremeties
[2021-12-14 08:51] LABS: Blood Urea Nitrogen 112 mg/dl (9-20)
--- NOTE | 2021-12-14 09:43 | HMH.PHAINT ---
HOME MEDICATIONS RECONCILED FROM RX LIST FROM DR CRISTINA'S OFFICE. HYPOTENSIVE, LISA/CARDIOVERSION TODAY. DO NOT RESTART HOME MEDS TODAY PER DR. CRISTINA.
[2021-12-14 10:40] LABS: POC Glucose,Bedside 325 (70-110)
[2021-12-14 10:40] LABS: POC Glucose,Bedside 231 (70-110)
[2021-12-14 11:55] LABS: POC Glucose,Bedside 211 (70-110)
[2021-12-14 11:55] LABS: Anion Gap 8.7 mEq/L (5-15); Calcium 8.1 mg/dl (8.4-10.2); Carbon Dioxide 24 mmol/L (22.0-30.0); Chloride 102 mmol/L (98-107); Creatinine Clearance Estimated 80 mL/min (50-200); Estimated Glomerular Filt Rate 56 ml/min (>60); GFR (African American) 68 ML/MIN (>60); Glucose 231 mg/dl (74-100); Potassium 3.7 mmoL/L (3.5-5.1); Sodium 131 mmol/L (136-145)
[2021-12-14 11:58] LABS: Blood Urea Nitrogen 104 mg/dl (9-20)
--- NOTE | 2021-12-14 12:18 | HMH.HP ---
*Admission Date: 12/13/21 <Mey Arias - 12/14/21 12:39> *Chief complaint: weakness, weight loss <Mey Arias - 12/14/21 12:39> *History of present illness: Mr. Zamudio is a 61-year-old male who has had multiple medical problems over the last 6 to 8 weeks. His states approximately 6 weeks ago he began having vertigo. He was started on some medication and did go to the chiropractor and it seemed to improve slightly. He then started having left facial pain, numbness, and weakness and was diagnosed with Bourgeois's palsy. She states he was started on antivirals and steroids but has had very little p.o. intake since being diagnosed with Bourgeois's palsy due to difficulty eating and drinking. He has been following with Dr. Heard in the office. He has continued with left facial numbness and drooping and the meclizine he was taking for his vertigo seem to make the vertigo worse. His meclizine was stopped and he was started on prochlorperazine. He was also started on some gabapentin due to nerve pain. It was felt he should see Dr. Roth with neurology as his Bourgeois's palsy had been unimproved after 2 weeks of steroids. An MRI of the brain was also ordered. He followed up again yesterday in the office and his stated he was getting weaker by the day. He had lost about 30 pounds and was having some difficulty swallowing. She thought the gabapentin was causing some lethargy and occasional hallucinations. The patient was barely able to walk at home. His MRI was reviewed and nonrevealing. He was sent to the emergency room due to concerns of dehydration and electrolyte disturbance. He was evaluated in the ER and his white count was found to be elevated. His glucose was 1037, his sodium was low at 117, his potassium was elevated at 5.2. His BUN and creatinine were elevated at 114 and 2.5. His troponin was slightly elevated and his acetone level was moderate. He was also in atrial flutter. He was admitted for DKA and atrial flutter. He was started on an insulin drip as well as a Cardizem drip and IV fluids. He was also started on Levaquin due to his elevated white blood cell count. Cardiology was consulted. <Mey Arias 12/14/21 12:39> [facility] History I have reviewed the patient's past medical history: Yes <Mey Arias 12/14/21 12:39> Medical History: Reports:: Cancer, Diabetes Mellitus Type 2, Hypertension Denies:: Diabetes Mellitus Type 1, Internal Pacemaker, MRSA, Seizures <Mey Arias 12/14/21 12:39> *Have you ever received a pneumonia vaccine?: No <Mey Arias 12/14/21 12:39> *Have you received a flu vaccine this season?: No <Mey Arias 12/14/21 12:39> Other Medical History: Denies: Blood Transfusion Reaction <Mey Arias 12/14/21 12:39> Laterality Cases: Bilateral: Carpal Tunnel Release <Mey Arias 12/14/21 12:39> Other Surgeries: Yes: Other (Esophageal dilatation, prostatectomy). No: Pacemaker <Mey Arias 12/14/21 12:39> Amputation: No <Mey Arias 12/14/21 12:39> Fractures: No <Mey Arias 12/14/21 12:39> - *Social History Smoking Status: Never smoker <Mey Arias 12/14/21 12:39> # Packs/Day (cigarettes): 0 <Mey Arias 12/14/21 12:39> #Yrs smoked (if former smoker): 0 <Mey Arias 12/14/21 12:39> Alcohol Intake: never <Mey Arias 12/14/21 12:39> Alcohol Intake Frequency:: a few times a week <Mey Arias 12/14/21 12:39> Substance Use Type: denies use <Mey Arias 12/14/21 12:39> *Occupational Status:: unemployed <Mey Arias 12/14/21 12:39> Housing: house <Mey Arias 12/14/21 12:39> Household Members: spouse <Mey Arias 12/14/21 12:39> *Travel in the last 8 weeks: None <Mey Arias 12/14/21 12:39> Family Hx:: Other (CHF) <Mey Arias - 12/14/21 12:39> Review of Systems - Constitutional Reports fatigue, Reports lack of energy, Reports weakness, Reports weight loss, Denies chills, Denies fever(s) <Mey Arias - 12/14/
--- NOTE | 2021-12-14 12:36 | PC.NURSE ---
fingerstick 259, insulin gtt increased to 6mL/hr @ this time
[2021-12-14 12:39] LABS: POC Glucose,Bedside 259 (70-110)
--- NOTE | 2021-12-14 13:24 | HMH.ANESCL ---
[facility] Anesthesia Checklist - Patient Identification Patient Identification: Arm Band, Verbal (Name & ) - Structural Data Admitted From: Inpatient Planned Operative Procedure/s: LISA Consent for Planned Operative Procedure(s) Verified: Yes Verified Documents: Surgical Consent - NPO Status Verified Time NPO: 08:00 - Chart Verification Results Verified: CBC, BMP - Additional verifications Anesthesia Reactions: No Hx Blood Transfusions: No Blood Transfusion Reaction: No - Airway Assessment C-Spine Mobility Assessed: Yes TMJ Mobility Assessed: Yes Dentition: Good Dentition - Neurological Assessment Level of Consciousness: Awake, Alert, Appropriate - Anesthesia Plan Anesthesia Risk discussed: Yes ASA Class: III Anesthesia Type: IV sedation [facility] History I have reviewed the patient's past medical history: Yes Medical History: Reports:: Cancer, Diabetes Mellitus Type 2, Hypertension Denies:: Diabetes Mellitus Type 1, Internal Pacemaker, MRSA, Seizures *Have you ever received a pneumonia vaccine?: No *Have you received a flu vaccine this season?: No Other Medical History: Denies: Blood Transfusion Reaction Anesthesia experience/problems:: none Laterality Cases: Bilateral: Carpal Tunnel Release Other Surgeries: Yes: No Previous Surgery, Other (Esophageal dilatation, prostatectomy). No: Pacemaker Amputation: No Fractures: No - *Social History Smoking Status: Never smoker # Packs/Day (cigarettes): 0 #Yrs smoked (if former smoker): 0 Alcohol Intake: never Alcohol Intake Frequency:: a few times a week Substance Use Type: denies use *Occupational Status:: unemployed Housing: house Household Members: spouse *Travel in the last 8 weeks: None Family Hx:: Other (CHF)
--- NOTE | 2021-12-14 13:27 | CT_ITS ---
PROCEDURE INFORMATION: Exam: CTA Chest With Contrast Exam date and time: 12/14/2021 1:27 PM Age: 61 years old Clinical indication: Shortness of breath; Additional info: SOA, a. Fib, enlarged right heart TECHNIQUE: Imaging protocol: Computed tomographic angiography of the chest with contrast. 3D rendering (Not supervised by radiologist): MIP and/or 3D reconstructed images were created by the technologist. Total images: 663 Radiation optimization: All CT scans at this facility use at least one of these dose optimization techniques: automated exposure control; mA and/or kV adjustment per patient size (includes targeted exams where dose is matched to clinical indication); or iterative reconstruction. Contrast material: ISOVUE; Contrast volume: 70 ml; Contrast route: INTRAVENOUS (IV); COMPARISON: CR XR CHEST PORTABLE 12/13/2021 6:55 PM FINDINGS: Pulmonary arteries: The pulmonary arteries enhance appropriately with no evidence of pulmonary embolism. Aorta: The aorta enhances appropriately without evidence of dissection or aneurysm. No mediastinal hematoma. Mild aortic ectasia/tortuosity. Thyroid: The visualized thyroid gland demonstrates no gross abnormality. Lungs: No acute tracheobronchial abnormalities. Multifocal alveolar opacities in the left lower lobe concerning for pneumonia. Granulomatous calcification in the left apex. Mild-moderate dependent atelectasis in the lung bases. No pulmonary mass lesions are identified. Minimal basilar pleural effusion on the right. Granulomatous calcifications in the spleen without acute splenic abnormality. Pleural spaces: No pneumothorax. Heart: Overall heart size is normal, with slight right ventricular dilatation. No atrial thrombus. Minimal pericardial fluid without afia pericardial effusion. Mediastinal space: Esophageal wall thickening in the mid and distal segments suggesting esophagitis, consider nonemergent esophagram or endoscopic assessment as clinically indicated. Fluid in the mid esophagus suggests an element of gastroesophageal reflux. Lymph nodes: No supraclavicular or axillary adenopathy. No mediastinal or hilar adenopathy. Bones/joints: No acute osseous abnormalities are identified. Osteopenia. Bridging ossification across multiple mid and lower thoracic spine segments suggesting diffuse idiopathic skeletal hyperostosis (DISH). Soft tissues: The soft tissues of the chest wall demonstrate no acute abnormality. IMPRESSION: 1. No evidence of pulmonary embolism or aortic dissection. 2. Patchy alveolar opacities in the left lower lobe concerning for early/mild pneumonia. 3. Esophageal wall thickening suggestive of esophagitis, consider nonemergent esophagram or endoscopic assessment as clinically indicated. Fluid in the mid esophagus suggests an element of gastroesophageal reflux. 4. Minimal right basilar pleural effusion. 5. Additional nonemergent findings detailed above. 6. These findings initiated a results reporting process. An addendum will be issued at the time of clinician notification.
[2021-12-14 14:02] LABS: POC Glucose,Bedside 146 (70-110)
--- NOTE | 2021-12-14 14:15 | DIET.NUTRFU ---
RD interviewed , patient gone for procedure. reports a 40# wt loss over past 30 days secondary to Stigler Palsy and unable to swallow much. Mouth is always dry, needs moist soft foods. He has been able to tolerate soups, moist salads, cottage cheese-reviewed menu and alternates available. His BS have been uncontrolled secondary to steroid tx for Stigler palsy, reviewed diabetic diet handout and agreed to start glucerna for remainder of stay.
--- NOTE | 2021-12-14 14:41 | PC.NURSE ---
Pt's HR maintaining 88-95. Cardizem gtt decreased to 5mcg/min
[2021-12-14 15:08] LABS: POC Glucose,Bedside 141 (70-110)
[2021-12-14 15:37] LABS: Chloride 106 mmol/L (98-107); Sodium 137 mmol/L (136-145)
[2021-12-14 15:40] LABS: Creatinine Clearance Estimated 87 mL/min (50-200); Estimated Glomerular Filt Rate 62 ml/min (>60); GFR (African American) 75 ML/MIN (>60)
[2021-12-14 15:41] LABS: Anion Gap 7.9 mEq/L (5-15); Calcium 7.7 mg/dl (8.4-10.2); Carbon Dioxide 26 mmol/L (22.0-30.0); Glucose 142 mg/dl (74-100)
[2021-12-14 15:46] LABS: Blood Urea Nitrogen 87 mg/dl (9-20); Potassium 2.9 mmoL/L (3.5-5.1)
[2021-12-14 16:32] LABS: POC Glucose,Bedside 171 (70-110)
[2021-12-14 17:19] LABS: POC Glucose,Bedside 153 (70-110)
[2021-12-14 18:22] LABS: POC Glucose,Bedside 235 (70-110)
--- NOTE | 2021-12-14 18:51 | PC.NURSE ---
Pt currently on 1.5mL/hr of insulin. Pt remains in NSR. Appetite has been poor. No other acute changes, will continue to monitor.
[2021-12-14 19:59] LABS: Acetone, Serum (Rapid) None Detected (None Detect)
--- NOTE | 2021-12-14 22:37 | PC.NURSE ---
[address] Grullon called and notified of patient having no acetone and anion gap of 7.9, gave ok to stop insulin infusion, 20 units of lantus once and start on low intensity SSI, notified him that patient was on D5NS with 40 K+, asked what fluids he wanted him changed to, stated to leave fluids the same, all orders read back and verified with Dr. Grullon
[2021-12-15] VITALS (10 sets, daily range): BP systolic 114–160; BP diastolic 62–93; PULSE 80–110; RESP 16–18; TEMP 36.8; O2SAT 92–99; BMI 30.8
--- NOTE | 2021-12-15 05:21 | PC.NURSE ---
[address] GARY THAT HE WANTED TO CONTINUE D5 NS EVEN THOUGH INSULIN DRIP HAD BEEN STOPPED, VERIFIED THAT HE DID WANT TO CONTINUE D5 NS
--- NOTE | 2021-12-15 05:22 | PC.NURSE ---
pt has rested intermittently t/o shift, able to use urinal with 1 assist, 1625 mL out so far this shift, insulin gtt turned off at approx 0000, HR 98-105 this shift, no complaints of SOA or pain this shift
[2021-12-15 06:09] LABS: POC Glucose,Bedside 214 (70-110)
[2021-12-15 06:09] LABS: POC Glucose,Bedside 221 (70-110)
[2021-12-15 06:09] LABS: POC Glucose,Bedside 213 (70-110)
[2021-12-15 06:09] LABS: POC Glucose,Bedside 217 (70-110)
[2021-12-15 06:09] LABS: POC Glucose,Bedside 231 (70-110)
[2021-12-15 06:09] LABS: POC Glucose,Bedside 238 (70-110)
[2021-12-15 06:43] LABS: Basophils % 0.1 % (0.1-2.0); Eosinophils % 0.1 % (0.1-12.0); Hematocrit 40.6 % (42.0-52.0); Lymphocytes # 0.6 K/mm3 (0.7-4.5); Lymphocytes % 5.8 % (10-50); Mean Corpuscular HGB Conc 31.9 g/dL (31.8-35.4); Mean Corpuscular Hemoglobin 29.1 pg (27.0-31.2); Mean Corpuscular Volume 91.2 fl (80-94); Monocytes # 0.5 K/mm3 (0.1-1.0); Monocytes % 4.7 % (1.7-9.3); Neutrophils # 8.7 K/mm3 (1.8-7.8); Neutrophils % 89.3 % (37.0-80.0); Platelet Count 185 K/mm3 (142-424); Red Blood Count 4.45 M/mm3 (4.60-6.20); Red Cell Distribution Width 13.5 % (11.5-17.5); White Blood Count 9.7 K/mm3 (4.8-10.8)
[2021-12-15 06:48] LABS: MANUAL DIFFERENTIAL MANUAL DIFFERENTIAL (MANUAL DIFF)
[2021-12-15 06:57] LABS: Hypochromasia 1+; Lymphocytes % 8 % (10-50); Monocytes % 3 % (2-9); Neutrophils % 82 % (42-76); Platelet Estimate Normal; Total Cells Counted 100
[2021-12-15 07:06] LABS: Hemoglobin 12.9 g/dL (14.1-18.0)
[2021-12-15 09:28] LABS: Chloride 109 mmol/L (98-107); Sodium 139 mmol/L (136-145)
[2021-12-15 09:29] LABS: Potassium 3.7 mmoL/L (3.5-5.1)
[2021-12-15 09:31] LABS: Alanine Aminotransferase 37 U/L (12-78); Alkaline Phosphatase 92 U/L (38-126); Anion Gap 8.7 mEq/L (5-15); Aspartate Amino Transferase 44 U/L (17-59); Bilirubin,Total 0.5 mg/dl (0.2-1.3); Blood Urea Nitrogen 49 mg/dl (9-20); Carbon Dioxide 25 mmol/L (22.0-30.0); Creatinine Clearance Estimated 99 mL/min (50-200); Estimated Glomerular Filt Rate 68 ml/min (>60); GFR (African American) 83 ML/MIN (>60)
[2021-12-15 09:32] LABS: Albumin Level 2.6 g/dl (3.5-5.0); Calcium 7.8 mg/dl (8.4-10.2); Globulin 2.6 g/dL (1.3-3.2); Glucose 237 mg/dl (74-100); Total Protein,Serum 5.2 g/dl (6.3-8.2)
--- NOTE | 2021-12-15 09:44 | HMH.ACPN2 ---
Internal Medicine - PN: Subj *Date: 12/15/21 *Time: 09:44 Interval history: Cardioversion by Dr. Glaser yesterday was successful and he has remained in sinus rhythm. States he did not rest well last night and he is having difficulty eating. This is partially related to the Bourgeois's palsy but is also having some reflux and nausea. He was also noted to have a stage II decubitus and complains of some pain related to this. Blood sugars have stabilized and he has cleared his acetone. Exam Vital signs and Labs for Last 24 Hours: Temp Pulse Resp BP Pulse Ox 98.3 F 102 H 18 129/75 96 12/15/21 04:00 12/15/21 06:00 12/15/21 06:00 12/15/21 06:00 12/15/21 06:00 Laboratory Results - last 24 hr 12/13/21 19:58: Urine Color Yellow, Urine Appearance Clear, Urine pH 6.0, Ur Specific [place] 1.010, Urine Protein Trace, Urine Glucose (UA) 3+, Urine Ketones Trace, Urine Blood 3+, Urine Nitrate Negative, Urine Bilirubin Negative, Urine Urobilinogen 0.2, Ur Leukocyte Esterase 1+ A, Urine RBC 50-100, Urine WBC 20-50, Ur Squamous Epith Cells None, Urine Bacteria Trace 12/14/21 09:11: POC Glucose 325 H* 12/14/21 10:33: POC Glucose 231 H 12/14/21 11:08: Sodium 131 L, Potassium 3.7, Chloride 102, Carbon Dioxide 24, Anion Gap 8.7, BUN 104 H*, Creatinine 1.30 H, Estimated Creat Clear 80, Estimated GFR 56 L, Est GFR ( Amer) 68, Glucose 231 H D, Calcium 8.1 L 12/14/21 11:43: POC Glucose 211 H 12/14/21 12:31: POC Glucose 259 H 12/14/21 13:54: POC Glucose 146 H 12/14/21 14:58: POC Glucose 141 H 12/14/21 15:02: Sodium 137, Potassium 2.9 L* D, Chloride 106, Carbon Dioxide 26, Anion Gap 7.9, BUN 87 H, Creatinine 1.20, Estimated Creat Clear 87, Estimated GFR 62, Est GFR ( Amer) 75, Glucose 142 H D, Calcium 7.7 L 12/14/21 16:02: POC Glucose 171 H 12/14/21 17:11: POC Glucose 153 H 12/14/21 18:06: POC Glucose 235 H 12/14/21 19:01: Acetone Level None detected 12/14/21 20:02: POC Glucose 213 H 12/14/21 21:57: POC Glucose 217 H 12/14/21 23:02: POC Glucose 221 H 12/14/21 23:56: POC Glucose 214 H 12/15/21 03:09: POC Glucose 231 H 12/15/21 05:51: WBC 9.7 D, RBC 4.45 L, Hgb 12.9 L D, Hct 40.6 L, MCV 91.2, MCH 29.1, MCHC 31.9, RDW 13.5, Plt Count 185, MPV 9.0, Neut % (Auto) 89.3 H, Lymph % (Auto) 5.8 L, [place] % (Auto) 4.7, Eos % (Auto) 0.1, Baso % (Auto) 0.1, Neut # (Auto) 8.7 H, Lymph # (Auto) 0.6 L, [place] # (Auto) 0.5, Eos # (Auto) 0.0, Baso # (Auto) 0.0, Total Counted 100, Neutrophils % (Manual) 82 H, Band Neutrophils % 7.0, Lymphocytes % (Manual) 8 L, Monocytes % (Manual) 3, Platelet Estimate Normal, Hypochromasia 1+ 12/15/21 05:51: Sodium 139, Potassium 3.7 D, Chloride 109 H, Carbon Dioxide 25, Anion Gap 8.7, BUN 49 H D, Creatinine 1.10, Estimated Creat Clear 99, Estimated GFR 68, Est GFR ( Amer) 83, Glucose 237 H D, Calcium 7.8 L, Total Bilirubin 0.5, AST 44 D, ALT 37 D, Alkaline Phosphatase 92, Total Protein 5.2 L, Albumin 2.6 L D, Globulin 2.6, Albumin/Globulin Ratio 1.0 L 12/15/21 05:54: POC Glucose 238 H I & O for Last 24 hours: Intake & Output 12/12/21 12/13/21 12/14/21 12/15/21 11:59 11:59 11:59 11:59 Intake Total 2323 / 2323 1339 / 1339 Output Total 600 / 600 1625 / 1625 Balance 1723 / 1723 -286 / -286 Weight 205 lb 15.999 oz 215 lb 6 oz Microbiology Reports for the Last 24 Hours: Microbiology 12/13/21 19:58 Urine,Clean Catch Urine Culture - Preliminary Gram Negative Rods Narrative: He is alert and oriented. Persists with left facial droop. Lungs are clear to auscultation. Heart is regular. Abdomen is soft and nondistended with no unusual tenderness. Extremities with trace edema. Kidney function and electrolytes have returned to normal. Urine culture is growing a gram-negative gabriele. Assessment and Plan (1) Hyperosmolar hyperglycemic state (HHS) Status: Acute Category: Medical Code(s): E11.00 - Type 2 diabetes mellitus with hyperosmolarity without nonketotic hypergl
--- NOTE | 2021-12-15 10:00 | PC.NURSE ---
Sean Hooks RN assuming care of pt at this time
[2021-12-15 12:39] LABS: Magnesium 2.4 mg/dl (1.6-2.3)
--- NOTE | 2021-12-15 15:41 | HMH.SLDYSPHA ---
Speech & Language Evaluation Speech/Language Dysphagia Evaluation Start: 12/15/21 15:18 Freq: ONCE Status: Active Protocol: Document 12/15/21 15:18 CMAY (Rec: 12/15/21 15:41 CMAY [id number]) Dysphagia Assess/Goals/Plan Assessment Date of Evaluation: 12/15/21 Evaluation Type Initial Certification Assessment/Problems Dysphagia; Bourgeois's palsy Does Patient Qualify for Service No Qualify/Failure Comment Patient does not qualify for ST services at this time based on the results of today's evaluation. Dietary changes were implemented for patient's safety during intake. Recommendations PHYSICIAN CERTIFICATION: The specified therapy services are required, authorized, and reviewed every 30 days. Diet Recommendations Mechanical Soft Ground with Gravy, Sauce, etc. Liquid Type Recommendations Normal/Thin SL Swallow Guidelines Assist w/all meals,Alt bite w/ sip thru meal,Standard Aspiration Prec.,Crush meds as allowed*,Oral Care Education, Oral care pre/post meals, Reflux precautions Crush Meds Crush all meds Dysphagia Swallow Precautions/Strategies Sitting Upright (90 deg),Small Bites and Sips,Alternate Liquids/Solids Plan Pt/Guardian verbally ack understanding Yes of dx/prognosis/goals G -code Required No Education Instructions provided Education provided to patient, his , and NSG regarding swallowing safety strategies to implement such as crushing pills as allowed in applesauce , alternating bites/sips, taking small bites/sips, sitting upright for intake, and providing oral care pre and post-meals. Pt/Caregiver able to recall information Able to recall/restate Reinforcement needed No Speech & Language HPI History Present Illness Description of Patient Problem Bourgeois's Palsy onset ~3 weeks ago; difficulty swallowing pills per NSG; Patient states his oral cavity is dry and he has difficulty swallowing foods. Rehab Services Assessed Speech therapy Language Primary Language Hebrew [place] Lang/Spoken in Home
[2021-12-15 17:51] LABS: POC Glucose,Bedside 204 (70-110)
[2021-12-15 17:51] LABS: POC Glucose,Bedside 229 (70-110)
[2021-12-15 22:25] LABS: POC Glucose,Bedside 264 (70-110)
[2021-12-16] VITALS (8 sets, daily range): BP systolic 133–163; BP diastolic 73–101; PULSE 60–90; RESP 16–18; TEMP 36.5–36.8; O2SAT 95–99; BMI 33.7
[2021-12-16 05:55] LABS: POC Glucose,Bedside 216 (70-110)
--- NOTE | 2021-12-16 09:54 | HMH.ACPN2 ---
Internal Medicine - PN: Subj *Date: 12/16/21 *Time: 09:54 Interval history: He rested a little better last night and feels better this morning. He has been able to eat a little more. Exam Vital signs and Labs for Last 24 Hours: Temp Pulse Resp BP Pulse Ox 97.7 F 87 18 163/101 H 99 12/16/21 07:27 12/16/21 07:27 12/16/21 07:27 12/16/21 07:27 12/16/21 07:27 Laboratory Results - last 24 hr 12/15/21 05:51: Magnesium 2.4 H D 12/15/21 13:04: POC Glucose 229 H 12/15/21 16:04: POC Glucose 204 H 12/15/21 21:45: POC Glucose 264 H 12/16/21 05:31: POC Glucose 216 H I & O for Last 24 hours: Intake & Output 12/13/21 12/14/21 12/15/21 12/16/21 11:59 11:59 11:59 11:59 Intake Total 2323 / 2323 1339 / 1339 1705 / 1705 Output Total 600 / 600 1625 / 1625 2150 / 2150 Balance 1723 / 1723 -286 / -286 -445 / -445 Weight 205 lb 15.999 oz 215 lb 6 oz 215 lb 2.738 oz Microbiology Reports for the Last 24 Hours: Microbiology 12/13/21 19:58 Urine,Clean Catch Urine Culture - Final Proteus mirabilis 12/13/21 19:45 Blood Blood Culture - Preliminary NO GROWTH AFTER 48 HOURS 12/13/21 19:45 Blood Blood Culture - Preliminary NO GROWTH AFTER 48 HOURS Narrative: Note elevated blood pressure. He is sitting up on the side of the bed. Alert and oriented. Color is normal. Persists with left facial droop. Lungs are clear to auscultation. Heart is regular. Extremities with trace pedal edema. Assessment and Plan (1) Hyperosmolar hyperglycemic state (HHS) Status: Acute Category: Medical Code(s): E11.00 - Type 2 diabetes mellitus with hyperosmolarity without nonketotic hyperglycemic-hyperosmolar coma (NKHHC); E11.65 - Type 2 diabetes mellitus with hyperglycemia (2) HARINI (acute kidney injury) Status: Acute Category: Medical Code(s): N17.9 - Acute kidney failure, unspecified (3) Electrolyte abnormality Status: Acute Category: Medical Code(s): E87.8 - Other disorders of electrolyte and fluid balance, not elsewhere classified (4) Atrial flutter Status: Acute Qualifiers: Atrial flutter type: unspecified Qualified Code(s): I48.92 - Unspecified atrial flutter Category: Medical Code(s): I48.92 - Unspecified atrial flutter (5) Type 2 diabetes mellitus Status: Chronic Category: Medical Code(s): E11.9 - Type 2 diabetes mellitus without complications (6) Bourgeois's palsy Status: Chronic Category: Medical Code(s): 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 (7) Vertigo Status: Chronic Category: Medical Code(s): R42 - Dizziness and giddiness (8) HBP (high blood pressure) Status: Acute Category: Medical Code(s): I10 - Essential (primary) hypertension (9) Sleep apnea Status: Acute Category: Medical Code(s): G47.30 - Sleep apnea, unspecified (10) UTI (urinary tract infection) Status: Acute Category: Medical Code(s): N39.0 - Urinary tract infection, site not specified (11) Sacral decubitus ulcer Status: Acute Category: Medical Code(s): L89.159 - Pressure ulcer of sacral region, unspecified stage - Assessment and plan all Dx Assessment and Plan for all problems:: He is eating and drinking a little better. We will discontinue IV fluids. Continue to monitor blood sugar with sliding scale insulin and Lantus in the evenings. Resume lisinopril. Encourage out of bed activity.
[2021-12-16 17:05] LABS: POC Glucose,Bedside 253 (70-110)
--- NOTE | 2021-12-16 18:20 | PC.NURSE ---
no acute changes this shift. sat on side of bed for meals. denied n/v/d. no pain voiced except ulcer to back side. turned q2hr. tolerating diet well. large pills were crushed with applesauce. family has remained at bedside for duration of shift.
[2021-12-17] VITALS (7 sets, daily range): BP systolic 136–149; BP diastolic 64–98; PULSE 60–110; RESP 16–20; TEMP 36.3–36.9; O2SAT 96–99
--- NOTE | 2021-12-17 04:44 | PC.NURSE ---
No acute changes this shift. Pt remains on RA with SATS above 95%, no c/o SOA this shift. VSS, call garduno in reach, will continue to monitor.
[2021-12-17 06:19] LABS: Basophils # 0.1 K/mm3 (0-0.2); Basophils % 1.1 % (0.1-2.0); Eosinophils # 0.1 K/mm3 (0.0-0.4); Eosinophils % 1.4 % (0.1-12.0); Hematocrit 39.2 % (42.0-52.0); Hemoglobin 12.7 g/dL (14.1-18.0); Lymphocytes # 0.9 K/mm3 (0.7-4.5); Lymphocytes % 11.7 % (10-50); Mean Corpuscular HGB Conc 32.3 g/dL (31.8-35.4); Mean Corpuscular Hemoglobin 29.9 pg (27.0-31.2); Mean Corpuscular Volume 92.5 fl (80-94); Mean Platelet Volume 8.7 fl (7.4-10.4); Monocytes # 0.5 K/mm3 (0.1-1.0); Monocytes % 5.7 % (1.7-9.3); Neutrophils # 6.3 K/mm3 (1.8-7.8); Neutrophils % 80.1 % (37.0-80.0); Platelet Count 170 K/mm3 (142-424); Red Blood Count 4.24 M/mm3 (4.60-6.20); Red Cell Distribution Width 13.4 % (11.5-17.5); White Blood Count 7.9 K/mm3 (4.8-10.8)
[2021-12-17 06:39] LABS: POC Glucose,Bedside 259 (70-110)
[2021-12-17 06:39] LABS: POC Glucose,Bedside 157 (70-110)
[2021-12-17 06:39] LABS: POC Glucose,Bedside 188 (70-110)
[2021-12-17 06:41] LABS: Anion Gap 7.8 mEq/L (5-15); Blood Urea Nitrogen 16 mg/dl (9-20); Calcium 8.1 mg/dl (8.4-10.2); Carbon Dioxide 24 mmol/L (22.0-30.0); Chloride 105 mmol/L (98-107); Creatinine Clearance Estimated 155 mL/min (50-200); Estimated Glomerular Filt Rate 115 ml/min (>60); GFR (African American) 139 ML/MIN (>60); Glucose 164 mg/dl (74-100); Potassium 3.8 mmoL/L (3.5-5.1); Sodium 133 mmol/L (136-145)
--- NOTE | 2021-12-17 08:45 | HMH.ACPN2 ---
Internal Medicine - PN: Subj *Date: 12/17/21 *Time: 08:45 Interval history: No new complaints. He was able to rest some last night. He has been able to sit on the side of the bed but he is dizzy when up. He is eating a little better. Bowels are moving normally. Speech therapy eval noted. Exam Vital signs and Labs for Last 24 Hours: Temp Pulse Resp BP Pulse Ox 98.1 F 68 16 140/88 99 12/17/21 04:00 12/17/21 04:00 12/17/21 04:00 12/17/21 04:00 12/17/21 04:00 Laboratory Results - last 24 hr 12/16/21 11:38: POC Glucose 253 H 12/16/21 16:35: POC Glucose 188 H 12/16/21 19:53: POC Glucose 259 H 12/17/21 06:06: WBC 7.9, RBC 4.24 L, Hgb 12.7 L, Hct 39.2 L, MCV 92.5, MCH 29.9, MCHC 32.3, RDW 13.4, Plt Count 170, MPV 8.7, Neut % (Auto) 80.1 H, Lymph % (Auto) 11.7, [place] % (Auto) 5.7, Eos % (Auto) 1.4, Baso % (Auto) 1.1, Neut # (Auto) 6.3, Lymph # (Auto) 0.9, [place] # (Auto) 0.5, Eos # (Auto) 0.1, Baso # (Auto) 0.1 12/17/21 06:06: Sodium 133 L, Potassium 3.8, Chloride 105, Carbon Dioxide 24, Anion Gap 7.8, BUN 16 D, Creatinine 0.70 D, Estimated Creat Clear 155, Estimated GFR 115, Est GFR ( Amer) 139 D, Glucose 164 H, Calcium 8.1 L 12/17/21 06:11: POC Glucose 157 H I & O for Last 24 hours: Intake & Output 12/14/21 12/15/21 12/16/21 12/17/21 11:59 11:59 11:59 11:59 Intake Total 2323 / 2323 1339 / 1339 1705 / 1705 480 / 480 Output Total 600 / 600 1625 / 1625 2150 / 2150 Balance 1723 / 1723 -286 / -286 -445 / -445 480 / 480 Weight 205 lb 15.999 oz 215 lb 6 oz 215 lb 2.738 oz Microbiology Reports for the Last 24 Hours: Microbiology 12/13/21 19:58 Urine,Clean Catch Urine Culture - Final Proteus mirabilis Narrative: He is alert and oriented. Left facial droop persists. Lungs are clear. Heart is regular. Assessment and Plan (1) Hyperosmolar hyperglycemic state (HHS) Status: Acute Category: Medical Code(s): E11.00 - Type 2 diabetes mellitus with hyperosmolarity without nonketotic hyperglycemic-hyperosmolar coma (NKHHC); E11.65 - Type 2 diabetes mellitus with hyperglycemia (2) HARINI (acute kidney injury) Status: Acute Category: Medical Code(s): N17.9 - Acute kidney failure, unspecified (3) Electrolyte abnormality Status: Acute Category: Medical Code(s): E87.8 - Other disorders of electrolyte and fluid balance, not elsewhere classified (4) Atrial flutter Status: Acute Qualifiers: Atrial flutter type: unspecified Qualified Code(s): I48.92 - Unspecified atrial flutter Category: Medical Code(s): I48.92 - Unspecified atrial flutter (5) Type 2 diabetes mellitus Status: Chronic Category: Medical Code(s): E11.9 - Type 2 diabetes mellitus without complications (6) Bourgeois's palsy Status: Chronic Category: Medical Code(s): 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 (7) Vertigo Status: Chronic Category: Medical Code(s): R42 - Dizziness and giddiness (8) HBP (high blood pressure) Status: Acute Category: Medical Code(s): I10 - Essential (primary) hypertension (9) Sleep apnea Status: Acute Category: Medical Code(s): G47.30 - Sleep apnea, unspecified (10) UTI (urinary tract infection) Status: Acute Category: Medical Code(s): N39.0 - Urinary tract infection, site not specified (11) Sacral decubitus ulcer Status: Acute Category: Medical Code(s): L89.159 - Pressure ulcer of sacral region, unspecified stage - Assessment and plan all Dx Assessment and Plan for all problems:: Continue current treatment. PT OT eval. Out of bed today.
--- NOTE | 2021-12-17 09:59 | HMH.PNCARD ---
Subjective Date: 12/17/21 Time: 09:59 Principal diagnosis: Atrial fibrillation, uncontrolled diabetes Interval history: 61-year-old white male sitting in bedside chair eating acute distress. He denies any chest pain, pressure or tightness. He understands that taking care of his diabetes will be a major factor in his health care. Telemetry shows continued sinus rhythm since cardioversion on Friday. Metoprolol was added over the weekend for blood pressure and rate control. He continues on lisinopril but will also add HCTZ which she was taking at home. Exam Vital signs and Labs for Last 24 Hours: Temp Pulse Resp BP Pulse Ox 98.1 F 68 16 140/88 99 12/17/21 04:00 12/17/21 04:00 12/17/21 04:00 12/17/21 04:00 12/17/21 04:00 Laboratory Results - last 24 hr 12/16/21 11:38: POC Glucose 253 H 12/16/21 16:35: POC Glucose 188 H 12/16/21 19:53: POC Glucose 259 H 12/17/21 06:06: WBC 7.9, RBC 4.24 L, Hgb 12.7 L, Hct 39.2 L, MCV 92.5, MCH 29.9, MCHC 32.3, RDW 13.4, Plt Count 170, MPV 8.7, Neut % (Auto) 80.1 H, Lymph % (Auto) 11.7, [place] % (Auto) 5.7, Eos % (Auto) 1.4, Baso % (Auto) 1.1, Neut # (Auto) 6.3, Lymph # (Auto) 0.9, [place] # (Auto) 0.5, Eos # (Auto) 0.1, Baso # (Auto) 0.1 12/17/21 06:06: Sodium 133 L, Potassium 3.8, Chloride 105, Carbon Dioxide 24, Anion Gap 7.8, BUN 16 D, Creatinine 0.70 D, Estimated Creat Clear 155, Estimated GFR 115, Est GFR ( Amer) 139 D, Glucose 164 H, Calcium 8.1 L 12/17/21 06:11: POC Glucose 157 H I & O for Last 24 hours: Intake & Output 01/14/22 01/15/22 01/16/22 01/17/22 11:59 11:59 11:59 11:59 Intake Total 2323 / 2323 1339 / 1339 1705 / 1705 480 / 480 Output Total 600 / 600 1625 / 1625 2150 / 2150 Balance 1723 / 1723 -286 / -286 -445 / -445 480 / 480 Weight 205 lb 15.999 oz 215 lb 6 oz 215 lb 2.738 oz Microbiology Reports for the Last 24 Hours: Microbiology 12/13/21 19:58 Urine,Clean Catch Urine Culture - Final Proteus mirabilis - Constitutional no acute distress - *Routine HEENT Exam Head: Present: normocephalic Eye: Present: EOMI, PERRL ENT: Present: mucous membranes moist Comments: Left facial droop noted consistent with diagnosis of Bourgeois's palsy - *Routine Neck Exam Present: supple. Absent: lymphadenopathy - *Routine Respiratory Exam Present: CTA bilaterally - *Routine Cardiovascular Exam Present: RRR - *Routine Abdominal Exam Present: soft, normoactive bowel sounds. Absent: tenderness - *Routine Extremities Exam Absent: cyanosis, clubbing, edema - *Routine Skin Exam Present: warm. Absent: rash - *Routine Neurological Exam Present: alert, oriented X3 Progress Note: A&P (1) Hyperosmolar hyperglycemic state (HHS) Status: Acute (2) HARINI (acute kidney injury) Status: Acute (3) Electrolyte abnormality Status: Acute (4) Atrial flutter Status: Acute (5) Type 2 diabetes mellitus Status: Chronic (6) Bourgeois's palsy Status: Chronic (7) Vertigo Status: Chronic (8) HBP (high blood pressure) Status: Acute (9) Sleep apnea Status: Acute (10) UTI (urinary tract infection) Status: Acute (11) Sacral decubitus ulcer Status: Acute Assessment and Plan for All Diagnoses:: 1. Atrial flutter/fibrillation with rapid ventricular response, successfully converted to sinus rhythm with cardioversion. Maintaining sinus rhythm on beta-zaki therapy with apixaban for anticoagulation. Echocardiogram this admission shows normal ejection fraction. Once patient has stabilized and then discharged home would recommend outpatient stress testing. 2. Bourgeois's palsy with difficulty eating 3. Diabetes mellitus, treatment per PCP 4. Hypertension, not yet to goal. Adding HCTZ today. 5. Mild anemia, partly dilutional Nothing further to add from a cardiac standpoint. Again, would like to see the patient in 2 weeks after discharge to arrange for outpatient cardiac work-up.
--- NOTE | 2021-12-17 10:14 | HMH.OTEV ---
OT Inpatient Evaluation Rehab OT IP Evaluation Start: 12/17/21 08:28 Freq: ONCE Status: Complete Protocol: Document 12/17/21 10:03 PARTH (Rec: 12/17/21 10:14 PARTH [id number]) Rehab OT IP Assessment Subjective History *History of present illness: Mr. Zamudio is a 61-year-old male who has had multiple medical problems over the last 6 to 8 weeks. His states approximately 6 weeks ago he began having vertigo. He was started on some medication and did go to the chiropractor and it seemed to improve slightly. He then started having left facial pain, numbness, and weakness and was diagnosed with Bourgeois's palsy. She states he was started on antivirals and steroids but has had very little p.o. intake since being diagnosed with Bourgeois's palsy due to difficulty eating and drinking. He has been following with Dr. Heard in the office. He has continued with left facial numbness and drooping and the meclizine he was taking for his vertigo seem to make the vertigo worse . His meclizine was stopped and he was started on prochlorperazine. He was also started on some gabapentin due to nerve pain. It was felt he should see Dr. Roth with neurology as his Bourgeois's palsy had been unimproved after 2 weeks of steroids. An MRI of the brain was also ordered. He followed up again yesterday in the office and his stated he was getting weaker by the day. He had lost about 30 pounds and was having some difficulty swallowing. She thought the gabapentin was causing some lethargy and occasional
--- NOTE | 2021-12-17 11:46 | HMH.PTEV ---
Physical Therapy Evaluation Rehab PT IP Evaluation Start: 12/17/21 08:27 Freq: ONCE Status: Active Protocol: Document 12/17/21 11:38 ADRIANA (Rec: 12/17/21 11:46 ADRIANA [id number]) Subjective/History History History Patient was admitted to [facility] secondary to significant functional decline over the past 6-8 weeks. He presented to ED where he was diagnosed with type 2 diabetes with ketoacidosis. Functional decline started after a bout with vertigo and Bourgeois's Palsy. Patient was previously independent with transfers and standing/ambulatory activities. Patient lives at home with with 5 steps to enter. Subjective Subjective I'm feeling a little better. I just don't know how to mange the diabetes, but I think someone is supposed to help me with that today or tomorrow. Rehab PT IP Eval Objective Appearance Patient Behavior Appropriate,Cooperative Patient Orientation Person,Place,Birthday Difficulty following instructions none Speech Pattern Slurred Ambulation Patient Able to Ambulate Yes Ambulation Observation IP General Gait Pattern Observation Wide Based Gait Ambulation Distance (feet) 10 Ambulation Assistive Device Rolling Walker Ambulation Ability Minimal x 1 (25% assist) Balance Ability to Arise Able, uses arms to help Sitting Balance Steady, safe Standing Balance Steady, wide stance Dynamic Sitting Balance Ability Normal Dynamic Standing Balance Ability Good Transfers Chair Transfer Ability Minimal x 1 (25% assist) Sit to Stand Chair Transfer Ability Minimal x 1 (25% assist) ROM All Extremities PT ROM Status WFL MMT All Extremities PT MMT WFL Rehab PT IP prob,goals,plan Problems Date of Evaluation: 12/17/21 PT IP Problems Bed Mobility,Transfers,Gait, Balance,Self care,Safety Rehab Potential Rehab Potential Good Equipment Needs Assistive Devices Rolling / Wheeled Walker Plan PT Intervention Plan Bed Mobility,Transfers,Gait, Balance,Self care,Safety,
[2021-12-17 12:07] LABS: POC Glucose,Bedside 239 (70-110)
--- NOTE | 2021-12-17 13:44 | SW/DCPLANNER ---
Addendum entered by Corin Suffolk 12/19/21 14:46: I spoke with Angie from [facility]: private pay rate at $160 for initial visit and $140 for each following visit and this includes PT/assisted and speech therapy. I presented this krishnan to patients and she stated that she wanted to return home then would call me if interested in home health services. Patient will discharge home with today. Addendum entered by Corin Suffolk 12/19/21 13:17: This patient and his have decided to discharge home once medically stable for discharge. I presented private pay rates for [facility] and [facility] and [facility]/ [facility] stated they do not accept private pay rates. I have informed Dr Heard of this discharge plan. Addendum entered by Corin Suffolk 12/19/21 11:50: Patients insurance does not have a skilled benefit policy. I have informed patient and of situation: family would like time to discuss private pay at local skilled facility ([facility] is $185/day but must pay 30 days upfront at $5,500) and would like for me to look into private pay rate with home health agencies (I am waiting to hear back from [facility]). Family has asked that I return after lunch to give patient/ time to discuss discharge options. Addendum entered by Corin Suffolk 12/19/21 10:09: I spoke with Joi from [facility] this AM: they are still currently working to get ahold of patients insurance. A Epi has stated that she will reach out to Lily crawley/ [facility] regarding verification with patients insurance. This patient is medically stable for discharge per Dr Heard. Addendum entered by Yolis Lewis 12/18/21 13:22: SPOKE WITH JOI, LIAISON WITH [facility] AND SHE STATED THE GIRL WORKING ON [employer] WAS OUT TODAY ILL AND SHE SAID SHE DID SEND PAPERWORK IN, SHE WAS A LITTLE SKEPTICAL ABOUT THE INSURANCE BECAUSE SHE HAD NEVER HEARD OF IT BUT SHE SAID SHE HAS NOT HEARD ANYTHING AT THIS POINT.. WAITING FOR APPROVAL..WILL FOLLOW UP IN THE AM Addendum entered by Corin Suffolk 12/17/21 14:44: Joi has stated that patient is appropriate for acute care at [facility] pending insurance review. Addendum entered by Corin Peralta 12/17/21 14:20: Joi crawley/ [facility] is currently reviewing patient information. Original Note: I spoke with this patient/ regarding plans once medically stable for discharge. Patient could benefit from short term placement per PT/OT. At this time patient/ are agreeable to placement at this time: [facility] or [facility] are options per patient. Patient information has been faxed to [facility] at this time. I have also spoke w/ Lynne Felix: she will speak with patient/family this afternoon regarding insurance. I will continue to follow up with patient/ and [facility] at this time.
--- NOTE | 2021-12-17 14:49 | DIET.NUTRFU ---
RD saw patient with present today post lunch. His meal lunch tray still present consumed 75% fish, 25% mashed potatoes and some of the vegetables. He feels his intake is improving. Receiving glucerna with trays secondary to weight loss, he said he has been drinking some of them, encouraged him to space them in-between meals if he could so he could benefit from both meals and supplements. He was also really concerned about diabetes and insulin along with elevated BS. Was on steroid tx [employer] d/t [place] Palsy, not currently in place but probably still contributing to elevated BS. Provided another DM booklet today and a carb counting sheet to help with diet selection. Also reviewed menu and explained amount of carbs for each tray. He plans to go to rehab for a couple weeks prior to returning home, assured him that if he was going home on insulin they would educate on testing and insulin tx. It is new to him, previous was only on metformin and watches his diet occasionally.
[2021-12-17 16:48] LABS: POC Glucose,Bedside 229 (70-110)
--- NOTE | 2021-12-17 18:41 | PC.NURSE ---
PT IS SITTING UP IN THE CHAIR. NO COMPLAINTS OF DISCOMFORT. LT SIDED FACIAL DROOPING. PT HAS TOLERATED [facility] SOFT DIET WELL BUT HAS BEEN HAVING SOME ISSUES WITH SWALLOWING PILLS. LUNG SOUNDS CLEAR. ABDOMEN SOFT/NON TENDER WITH ACTIVE BOWEL SOUNDS. BUE/BLE EDEMA NOTED. STAGE 2 NOTED TO THE COCCYX WITH DRESSING C/D/I. WILL CONTINUE TO MONITOR.
[2021-12-18] VITALS (8 sets, daily range): BP systolic 131–144; BP diastolic 77–92; PULSE 59–130; RESP 14–20; TEMP 36.4–36.7; O2SAT 95–99
[2021-12-18 05:46] LABS: POC Glucose,Bedside 104 (70-110)
--- NOTE | 2021-12-18 08:20 | ECG_ITS ---
APPROVED REPORT Exam: Resting ECG HR:103 bpm ECG Measurements Heart Rate 103 AXES ME 96 P QRSd 84 QRS -38 QT 528 T 72 QTc 691 Conclusion Sinus tachycardia with short ME Left axis deviation Left ventricular hypertrophy with repolarization abnormality Abnormal ECG Electronically signed by : Charles Lorenzana MD 12/18/2021 19:54:17
--- NOTE | 2021-12-18 08:23 | HMH.ACPN2 ---
<Ladonna Ledezma - Last Filed: 12/18/21 08:23> Internal Medicine - PN: Subj *Date: 12/18/21 *Time: 08:23 Interval history: Patient states he does not feel as well today. He feels tired. He did eat breakfast. He sat on the side of the bread. He states his bottom does not hurt as long as he lies on his side. Nursing reports run of atrial fib Exam Vital signs and Labs for Last 24 Hours: Temp Pulse Resp BP Pulse Ox 97.8 F 59 L 14 139/88 99 12/18/21 00:00 12/18/21 00:00 12/18/21 00:00 12/18/21 00:00 12/18/21 00:00 Laboratory Results - last 24 hr 12/17/21 11:40: POC Glucose 239 H 12/17/21 16:21: POC Glucose 229 H 12/18/21 05:36: POC Glucose 104 I & O for Last 24 hours: Intake & Output 12/15/21 12/16/21 12/17/21 12/18/21 11:59 11:59 11:59 11:59 Intake Total 1339 / 1339 1705 / 1705 600 / 600 520 / 520 Output Total 1625 / 1625 2150 / 2150 0 / 0 1150 / 1150 Balance -286 / -286 -445 / -445 600 / 600 -630 / -630 Weight 215 lb 6 oz 215 lb 2.738 oz - Constitutional no acute distress - *Routine HEENT Exam Comments: Left facial droop - *Routine Respiratory Exam Present: CTA bilaterally - *Routine Cardiovascular Exam Present: RRR (Heart rates 90s. At present normal sinus rhythm on monitor) - *Routine Abdominal Exam Present: soft, normoactive bowel sounds. Absent: tenderness - *Routine Extremities Exam Absent: edema, calf tenderness - *Routine Neurological Exam Present: alert, oriented X3, facial asymmetry Assessment and Plan (1) Hyperosmolar hyperglycemic state (HHS) Status: Acute Category: Medical Code(s): E11.00 - Type 2 diabetes mellitus with hyperosmolarity without nonketotic hyperglycemic-hyperosmolar coma (NKHHC); E11.65 - Type 2 diabetes mellitus with hyperglycemia (2) HARINI (acute kidney injury) Status: Acute Category: Medical Code(s): N17.9 - Acute kidney failure, unspecified (3) Electrolyte abnormality Status: Acute Category: Medical Code(s): E87.8 - Other disorders of electrolyte and fluid balance, not elsewhere classified (4) Atrial flutter Status: Acute Qualifiers: Atrial flutter type: unspecified Qualified Code(s): I48.92 - Unspecified atrial flutter Category: Medical Code(s): I48.92 - Unspecified atrial flutter (5) Type 2 diabetes mellitus Status: Chronic Category: Medical Code(s): E11.9 - Type 2 diabetes mellitus without complications (6) Bourgeois's palsy Status: Chronic Category: Medical Code(s): 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 (7) Vertigo Status: Chronic Category: Medical Code(s): R42 - Dizziness and giddiness (8) HBP (high blood pressure) Status: Acute Category: Medical Code(s): I10 - Essential (primary) hypertension (9) Sleep apnea Status: Acute Category: Medical Code(s): G47.30 - Sleep apnea, unspecified (10) UTI (urinary tract infection) Status: Acute Category: Medical Code(s): N39.0 - Urinary tract infection, site not specified (11) Sacral decubitus ulcer Status: Acute Category: Medical Code(s): L89.159 - Pressure ulcer of sacral region, unspecified stage - Assessment and plan all Dx Assessment and Plan for all problems:: Continue current care. Out of bed activity encouraged. Cardiology will follow. <Bal Heard - Last Filed: 12/18/21 13:28> Internal Medicine - PN: Subj *Date: 12/18/21 *Time: 13:25 Exam Vital signs and Labs for Last 24 Hours: Temp Pulse Resp BP Pulse Ox 97.7 F 80 19 143/92 H 97 12/18/21 12:05 12/18/21 12:05 12/18/21 12:05 12/18/21 12:05 12/18/21 12:05 Laboratory Results - last 24 hr 12/17/21 16:21: POC Glucose 229 H 12/17/21 19:42: POC Glucose 243 H 12/18/21 05:36: POC Glucose 104 I & O for Last 24 hours: Intake & Output 12/16/21 12/17/21 12/18/21 12/19/21 11:59 11:59 11:59 11:59 Intake Total 1705 / 1705 600 / 600 640 / 640 360 / 360 Output Total 2150 / 2150 0 / 0 1150 / 1150 Balance -445 / -
--- NOTE | 2021-12-18 10:16 | P.PN_ITS ---
Subjective Date: 12/18/21 Time: 10:16 Principal diagnosis: Atrial fibrillation, uncontrolled diabetes Interval history: 61 yo WM in bed in NAD. Exhausted due to walking after being in bed for several days. Sinus tachycardia on telemetry and EKG this AM into the 120's. Metoprolol was increased this morning with current heart rate while resting about 80 bpm. Patient relates being exhausted after ambulating yesterday and today. He is surprised at how quickly his exercise ability has diminished over the last several days. Exam Vital signs and Labs for Last 24 Hours: Temp Pulse Resp BP Pulse Ox 97.6 F 110 H 15 140/81 95 12/18/21 08:00 12/18/21 08:00 12/18/21 08:00 12/18/21 08:00 12/18/21 08:00 Laboratory Results - last 24 hr 12/17/21 11:40: POC Glucose 239 H 12/17/21 16:21: POC Glucose 229 H 12/18/21 05:36: POC Glucose 104 I & O for Last 24 hours: Intake & Output 12/15/21 12/16/21 12/17/21 12/18/21 11:59 11:59 11:59 11:59 Intake Total 1339 / 1339 1705 / 1705 600 / 600 640 / 640 Output Total 1625 / 1625 2150 / 2150 0 / 0 1150 / 1150 Balance -286 / -286 -445 / -445 600 / 600 -510 / -510 Weight 215 lb 6 oz 215 lb 2.738 oz - Constitutional no acute distress - *Routine Respiratory Exam Present: CTA bilaterally - *Routine Cardiovascular Exam Present: RRR - *Routine Neurological Exam Present: alert, oriented X3 Progress Note: A&P (1) Hyperosmolar hyperglycemic state (HHS) Status: Acute (2) HARINI (acute kidney injury) Status: Acute (3) Electrolyte abnormality Status: Acute (4) Atrial flutter Status: Acute (5) Type 2 diabetes mellitus Status: Chronic (6) Bourgeois's palsy Status: Chronic (7) Vertigo Status: Chronic (8) HBP (high blood pressure) Status: Acute (9) Sleep apnea Status: Acute (10) UTI (urinary tract infection) Status: Acute (11) Sacral decubitus ulcer Status: Acute Assessment and Plan for All Diagnoses:: 1. Atrial flutter/fibrillation with rapid ventricular response, successfully converted to sinus rhythm with cardioversion. Maintaining sinus rhythm on beta- zaki therapy with apixaban for anticoagulation. Echocardiogram this admission shows normal ejection fraction. Metoprolol increased this a.m. due to sinus tachycardia 2. Bourgeois's palsy with difficulty eating. 3. Diabetes mellitus, treatment per PCP 4. Hypertension, controlled 5. Mild anemia, partly dilutional, stable.
[2021-12-18 11:49] LABS: POC Glucose,Bedside 243 (70-110)
--- NOTE | 2021-12-18 19:33 | PC.NURSE ---
PT HAS SAT UP ON SIDE OF BED AND UP TO CHAIR THIS SHIFT AND TOLERATED WELL. [facility] DIET. TOLERATES PO MEDS WELL WITH APPLESAUCE AND CHASED WITH WATER. STAGE [address]
[2021-12-18 20:34] LABS: POC Glucose,Bedside 206 (70-110)
[2021-12-18 20:34] LABS: POC Glucose,Bedside 248 (70-110)
[2021-12-18 20:34] LABS: POC Glucose,Bedside 180 (70-110)
[2021-12-19] VITALS (8 sets, daily range): BP systolic 122–140; BP diastolic 70–88; PULSE 60–115; RESP 16–18; TEMP 36.6–37; O2SAT 90–98; BMI 33.7
--- NOTE | 2021-12-19 08:31 | HMH.ACPN2 ---
<Mey Arias - Last Filed: 12/19/21 08:31> Internal Medicine - PN: Subj *Date: 12/19/21 *Time: 08:31 Interval history: Patient states he is feeling better today. He denies any pain. He is not sleeping well at night, but he actually did eat some breakfast this morning. The movement in the left side of his face has still not returned. Exam Vital signs and Labs for Last 24 Hours: Temp Pulse Resp BP Pulse Ox 98.3 F 115 H 18 122/70 96 12/19/21 07:37 12/19/21 07:37 12/19/21 07:37 12/19/21 07:37 12/19/21 07:41 Laboratory Results - last 24 hr 12/17/21 19:42: POC Glucose 243 H 12/18/21 11:33: POC Glucose 248 H 12/18/21 16:24: POC Glucose 180 H 12/18/21 20:26: POC Glucose 206 H I & O for Last 24 hours: Intake & Output 12/16/21 12/17/21 12/18/21 12/19/21 11:59 11:59 11:59 11:59 Intake Total 1705 / 1705 600 / 600 640 / 640 840 / 840 Output Total 2150 / 2150 0 / 0 1150 / 1150 Balance -445 / -445 600 / 600 -510 / -510 840 / 840 Weight 215 lb 2.738 oz 214 lb 15.211 oz Microbiology Reports for the Last 24 Hours: Microbiology 12/13/21 19:45 Blood Blood Culture - Final NO GROWTH AFTER 5 DAYS 12/13/21 19:45 Blood Blood Culture - Final NO GROWTH AFTER 5 DAYS - Constitutional no acute distress - *Routine Respiratory Exam Present: CTA bilaterally - *Routine Cardiovascular Exam Present: RRR - *Routine Abdominal Exam Present: soft, normoactive bowel sounds. Absent: tenderness - *Routine Extremities Exam Present: edema (Trace lower extremity). Absent: cyanosis, clubbing - *Routine Skin Exam Present: warm. Absent: rash - *Routine Neurological Exam Present: alert, oriented X3, facial asymmetry (on the left) Assessment and Plan (1) Hyperosmolar hyperglycemic state (HHS) Status: Acute Category: Medical Code(s): E11.00 - Type 2 diabetes mellitus with hyperosmolarity without nonketotic hyperglycemic-hyperosmolar coma (NKHHC); E11.65 - Type 2 diabetes mellitus with hyperglycemia (2) HARINI (acute kidney injury) Status: Acute Category: Medical Code(s): N17.9 - Acute kidney failure, unspecified (3) Electrolyte abnormality Status: Acute Category: Medical Code(s): E87.8 - Other disorders of electrolyte and fluid balance, not elsewhere classified (4) Atrial flutter Status: Acute Qualifiers: Atrial flutter type: unspecified Qualified Code(s): I48.92 - Unspecified atrial flutter Category: Medical Code(s): I48.92 - Unspecified atrial flutter (5) Type 2 diabetes mellitus Status: Chronic Category: Medical Code(s): E11.9 - Type 2 diabetes mellitus without complications (6) Bourgeois's palsy Status: Chronic Category: Medical Code(s): 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 (7) Vertigo Status: Chronic Category: Medical Code(s): R42 - Dizziness and giddiness (8) HBP (high blood pressure) Status: Acute Category: Medical Code(s): I10 - Essential (primary) hypertension (9) Sleep apnea Status: Acute Category: Medical Code(s): G47.30 - Sleep apnea, unspecified (10) UTI (urinary tract infection) Status: Acute Category: Medical Code(s): N39.0 - Urinary tract infection, site not specified (11) Sacral decubitus ulcer Status: Acute Category: Medical Code(s): L89.159 - Pressure ulcer of sacral region, unspecified stage - Assessment and plan all Dx Assessment and Plan for all problems:: Patient's white blood cell count has normalized. His glucose has improved. Will discuss further care with Dr. Heard. <Bal Heard - Last Filed: 12/19/21 11:01> Internal Medicine - PN: Subj *Date: 12/19/21 *Time: 11:00 Exam Vital signs and Labs for Last 24 Hours: Temp Pulse Resp BP Pulse Ox 98.3 F 115 H 18 122/70 96 12/19/21 07:37 12/19/21 07:37 12/19/21 07:37 12/19/21 07:37 12/19/21 07:41 Laboratory Results - last 24 hr 12/17/21 19:42: POC G
--- NOTE | 2021-12-19 08:58 | HMH.PNCARD ---
Subjective Date: 12/19/21 Time: 08:58 Principal diagnosis: Atrial fibrillation, uncontrolled diabetes Interval history: 61-year-old white male up ambulating in the room with physical therapy in no acute distress. States he is slowly getting better. Denies any chest pain, pressure or tightness. Telemetry at this time shows sinus tachycardia due to the patient ambulating. Otherwise he has demonstrated sinus rhythm with controlled ventricular response. Exam Vital signs and Labs for Last 24 Hours: Temp Pulse Resp BP Pulse Ox 98.3 F 115 H 18 122/70 96 12/19/21 07:37 12/19/21 07:37 12/19/21 07:37 12/19/21 07:37 12/19/21 07:41 Laboratory Results - last 24 hr 12/17/21 19:42: POC Glucose 243 H 12/18/21 11:33: POC Glucose 248 H 12/18/21 16:24: POC Glucose 180 H 12/18/21 20:26: POC Glucose 206 H I & O for Last 24 hours: Intake & Output 12/16/21 12/17/21 12/18/21 12/19/21 11:59 11:59 11:59 11:59 Intake Total 1705 / 1705 600 / 600 640 / 640 840 / 840 Output Total 2150 / 2150 0 / 0 1150 / 1150 Balance -445 / -445 600 / 600 -510 / -510 840 / 840 Weight 215 lb 2.738 oz 214 lb 15.211 oz Microbiology Reports for the Last 24 Hours: Microbiology 12/13/21 19:45 Blood Blood Culture - Final NO GROWTH AFTER 5 DAYS 12/13/21 19:45 Blood Blood Culture - Final NO GROWTH AFTER 5 DAYS - Constitutional no acute distress - *Routine HEENT Exam Head: Present: normocephalic Eye: Present: EOMI, PERRL ENT: Present: mucous membranes moist Comments: Left facial droop still evident - *Routine Respiratory Exam Present: CTA bilaterally, rhonchi - *Routine Cardiovascular Exam Present: RRR - *Routine Extremities Exam Absent: cyanosis, clubbing, edema - *Routine Neurological Exam Present: alert, oriented X3 Progress Note: A&P (1) Hyperosmolar hyperglycemic state (HHS) Status: Acute (2) HARINI (acute kidney injury) Status: Acute (3) Electrolyte abnormality Status: Acute (4) Atrial flutter Status: Acute (5) Type 2 diabetes mellitus Status: Chronic (6) Bourgeois's palsy Status: Chronic (7) Vertigo Status: Chronic (8) HBP (high blood pressure) Status: Acute (9) Sleep apnea Status: Acute (10) UTI (urinary tract infection) Status: Acute (11) Sacral decubitus ulcer Status: Acute Assessment and Plan for All Diagnoses:: Continue metoprolol succinate 100 mg daily and apixaban 5 mg twice daily for rate and rhythm control and anticoagulation. Nothing further to add at this time. Okay for discharge from cardiology standpoint when okay with primary care team. Follow-up in our office in 2 to 4 weeks.
--- NOTE | 2021-12-19 10:54 | DIET.NUTRFU ---
Patient possible discharge today to [facility] or [facility]. RD spoke to patient care nursing assistant about insulin teaching and BS monitoring. When this RD provided diet education he seemed very nervous about insulin dosage BS monitoring. special events planner aware also.
--- NOTE | 2021-12-19 11:23 | P.PN_ITS ---
Internal Medicine - PN: Subj *Date: 12/19/21 *Time: 11:23 Exam Vital signs and Labs for Last 24 Hours: Temp Pulse Resp BP Pulse Ox 98.5 F 71 16 125/76 97 12/19/21 11:02 12/19/21 11:02 12/19/21 11:02 12/19/21 11:02 12/19/21 11:02 Laboratory Results - last 24 hr 12/17/21 19:42: POC Glucose 243 H 12/18/21 11:33: POC Glucose 248 H 12/18/21 16:24: POC Glucose 180 H 12/18/21 20:26: POC Glucose 206 H I & O for Last 24 hours: Intake & Output 12/16/21 12/17/21 12/18/21 12/19/21 23:59 23:59 23:59 23:59 Intake Total 1495 / 1855 1000 / 1000 720 / 720 240 / 240 Output Total 2150 / 2150 350 / 1150 800 / 800 Balance -655 / -295 650 / -150 -80 / -80 240 / 240 Weight 97.6 kg 97.5 kg Microbiology Reports for the Last 24 Hours: Microbiology 12/13/21 19:45 Blood Blood Culture - Final NO GROWTH AFTER 5 DAYS 12/13/21 19:45 Blood Blood Culture - Final NO GROWTH AFTER 5 DAYS Assessment and Plan (1) Hyperosmolar hyperglycemic state (HHS) Status: Acute Category: Medical Code(s): E11.00 - Type 2 diabetes mellitus with hyperosmolarity without nonketotic hyperglycemic-hyperosmolar coma (NKHHC); E11.65 - Type 2 diabetes mellitus with hyperglycemia (2) HARINI (acute kidney injury) Status: Acute Category: Medical Code(s): N17.9 - Acute kidney failure, unspecified (3) Electrolyte abnormality Status: Acute Category: Medical Code(s): E87.8 - Other disorders of electrolyte and fluid balance, not elsewhere classified (4) Atrial flutter Status: Acute Qualifiers: Atrial flutter type: unspecified Qualified Code(s): I48.92 - Unspecified atrial flutter Category: Medical Code(s): I48.92 - Unspecified atrial flutter (5) Type 2 diabetes mellitus Status: Chronic Category: Medical Code(s): E11.9 - Type 2 diabetes mellitus without complications (6) Bourgeois's palsy Status: Chronic Category: Medical Code(s): 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 (7) Vertigo Status: Chronic Category: Medical Code(s): R42 - Dizziness and giddiness (8) HBP (high blood pressure) Status: Acute Category: Medical Code(s): I10 - Essential (primary) hyperte nsion (9) Sleep apnea Status: Acute Category: Medical Code(s): G47.30 - Sleep apnea, unspecified (10) UTI (urinary tract infection) Status: Acute Category: Medical Code(s): N39.0 - Urinary tract infection, si te not specified (11) Sacral decubitus ulcer Status: Acute Category: Medical Code(s): L89.159 - Pressure ulcer of sacral region, unspecified stage The patient's infection will respond to the chosen ABx?: Yes Is the patient receiving the right drug, dose, and route?: Yes Could a more targeted ABx be ordered?: No (PROTEUS SENSITIVE TO LEVAQUIN)
[2021-12-19 11:26] LABS: POC Glucose,Bedside 134 (70-110)
[2021-12-19 13:09] LABS: POC Glucose,Bedside 228 (70-110)
--- NOTE | 2021-12-20 15:08 | HMH.DCSUM ---
General - General Admission date:: 12/13/21 <Bal Heard Antwon - 01/13/22 15:11> 12/13/21 <Mey Arias - 12/20/21 15:13> Discharge date: 12/19/21 <HugoMey - 12/20/21 15:13> HPI HPI: Mr. Zamudio is a 61-year-old male who has had multiple medical problems over the last 6 to 8 weeks. His states approximately 6 weeks ago he began having vertigo. He was started on some medication and did go to the chiropractor and it seemed to improve slightly. He then started having left facial pain, numbness, and weakness and was diagnosed with Bourgeois's palsy. She states he was started on antivirals and steroids but has had very little p.o. intake since being diagnosed with Bourgeois's palsy due to difficulty eating and drinking. He has been following with Dr. Heard in the office. He has continued with left facial numbness and drooping and the meclizine he was taking for his vertigo seem to make the vertigo worse. His meclizine was stopped and he was started on prochlorperazine. He was also started on some gabapentin due to nerve pain. It was felt he should see Dr. Roth with neurology as his Bourgeois's palsy had been unimproved after 2 weeks of steroids. An MRI of the brain was also ordered. He followed up again yesterday in the office and his stated he was getting weaker by the day. He had lost about 30 pounds and was having some difficulty swallowing. She thought the gabapentin was causing some lethargy and occasional hallucinations. The patient was barely able to walk at home. His MRI was reviewed and nonrevealing. He was sent to the emergency room due to concerns of dehydration and electrolyte disturbance. He was evaluated in the ER and his white count was found to be elevated. His glucose was 1037, his sodium was low at 117, his potassium was elevated at 5.2. His BUN and creatinine were elevated at 114 and 2.5. His troponin was slightly elevated and his acetone level was moderate. He was also in atrial flutter. He was admitted for DKA and atrial flutter. He was started on an insulin drip as well as a Cardizem drip and IV fluids. He was also started on Levaquin due to his elevated white blood cell count. Cardiology was consulted. <Mey Arias - 12/31/21 21:59> Hospital Course Hospital Course: The patient's head CT showed no acute intercranial process. His chest x-ray showed nothing acute. He was admitted and started ankur insulin drip for DKA as well as IV fluids. He had improvement in his glucose level. He was started on a Cardizem drip as well and seen by cardiology, who planned to cardiovert the patient the next day. Renal functions improved as did his electrolytes with hydration. It was felt his hyperosmolar hyperglycemic state was likely related to recent steroids for Bourgeois's palsy. His Cardizem dose had to be lowered due to some hypotension. A urinalysis was suspicious for UTI and he was started on Levaquin pending cultures. He had a chest CTA showing no evidence of PE or aortic dissection. There were patchy alveolar opacities in the left lower lobe concerning for an early pneumonia. There was also esophageal wall thickening suggestive of esophagitis. The patient was cardioverted by cardiology and this was successful. He remained in sinus rhythm. He continued with difficulty eating partially related to Bourgeois's palsy, but also due to some reflux and nausea. His blood sugar stabilized and his acetone cleared. He was started on Lantus and Zofran was ordered for nausea. Pantoprazole was added for his reflux symptoms. Speech therapy was consulted for dysphagia. His urine culture grew out Proteus, which was sensitive to the Levaquin, therefore this was continued. He was able to begin eating and drinking and his IV fluids were discontinued. His blood sugar was managed with sliding scale insulin and Lantus in the evenings. Speech therapy did not see any signs of aspiration. They recommended he be placed on a
== END 2021-12-19 18:55 | disposition home health service (06) | DRG 308 ==
LOC: ER 20:05 → 2ND 20:18
PROVIDERS: Emergency Medicine; Internal Medicine Cardiovascular Disease; Physician Assistant; Admitting Provider Family Medicine; Emergency Provider Emergency Medicine; PCP Family Medicine; Visit Provider Family Medicine
PROC: 5A2204Z Restoration of Cardiac Rhythm, Single (ICD-10-PCS; principal; 2021-12-14 13:00)
PROC: 5A2204Z Restoration of Cardiac Rhythm, Single (ICD-10-PCS; 2021-12-14 13:00)
DX: I48.92 Unspecified atrial flutter (principal); E11.00 Type 2 diabetes mellitus with hyperosmolarity without nonketotic hyperglycemic-hyperosmolar coma (NKHHC); E11.10 Type 2 diabetes mellitus with ketoacidosis without coma; N17.9 Acute kidney failure, unspecified; N39.0 Urinary tract infection, site not specified; Z20.822 Contact with and (suspected) exposure to COVID-19; G51.0 Bell's palsy; Z79.84 Long term (current) use of oral hypoglycemic drugs; E11.65 Type 2 diabetes mellitus with hyperglycemia; I10 Essential (primary) hypertension; Z85.9 Personal history of malignant neoplasm, unspecified; G47.30 Sleep apnea, unspecified; L89.152 Pressure ulcer of sacral region, stage 2; B96.4 Proteus (mirabilis) (morganii) as the cause of diseases classified elsewhere; D64.9 Anemia, unspecified; R00.0 Tachycardia, unspecified; T38.0X5A Adverse effect of glucocorticoids and synthetic analogues, initial encounter
CPT/HCPCS: 36415; 70450; 71045; 71275; 80048; 80053; 81001; 82009; 82803; 82947; 82962; 83036; 83605; 83735; 84484; 85007; 85025; 85610; 85730; 87040; 87086; 87088; 87186; 92610; 92960; 93005; 93306; 93312; 96365; 96367; 97116; 97163; 97165; 97530; 97535; 99285; C9803; J1956; Q9967; U0003; U0005

== ENCOUNTER → 2022-01-11 10:32 | Outpatient (CLI) | payer OTHER, SELFPAY ==
--- NOTE | 2022-01-11 10:33 | MR_ITS ---
FINAL REPORT CLINICAL HISTORY: dizziness. CARBALLO'S PASLY [id number]. DIZZINESS. BLURRED VISION. 30LB WEIGHT LOSS IN 2WKS. BILATERAL LEG WEAKNESS. NECK PAIN FINDINGS: Multiple projection images of the neck arterial vasculature were obtained without contrast. The raw data images were also reviewed. The right common carotid artery has an unremarkable appearance without evidence of stenosis or occlusion. The right internal carotid artery has an unremarkable appearance without evidence of stenosis or occlusion. The right external carotid artery is patent. The right vertebral artery is patent without evidence of stenosis. The left common carotid artery has an unremarkable appearance without evidence of stenosis or occlusion. The left internal carotid artery is patent without evidence of stenosis or occlusion. The left external carotid artery is patent. The left vertebral artery is patent without evidence of stenosis. IMPRESSION: Unremarkable MR angiogram of the neck without evidence of stenosis or occlusion. Reviewed, Interpreted and Dictated by Handy Hart III, MD Transcribed by Ladonna Du Authenticated by Handy Hart III, MD on 01/11/2022 02:57:37 PM [facility]
--- NOTE | 2022-01-11 10:33 | MR_ITS ---
FINAL REPORT CLINICAL HISTORY: dizziness. CARBALLO'S PASLY [id number]. DIZZINESS. BLURRED VISION. 30LB WEIGHT LOSS IN 2WKS. BILATERAL LEG WEAKNESS. NECK PAIN PRIOR MRI BRAIN 12-11-21 FINDINGS: Multiple projection images of the brain arterial vasculature were obtained without contrast. The raw data images were also reviewed. The distal internal carotid, distal vertebral and basilar arteries have an unremarkable appearance without evidence of significant stenosis or occlusion. The proximal anterior, middle and posterior cerebral arteries have an unremarkable appearance. There is no evidence of significant stenosis or major branch occlusion. No aneurysm or vascular malformation is identified. IMPRESSION: Unremarkable MR angiogram of the head. Reviewed, Interpreted and Dictated by Handy Hart III, MD Transcribed by Ladonna Du Authenticated by Handy Hart III, MD on 01/11/2022 02:57:05 PM [facility]
== END ==
PROVIDERS: PCP Family Medicine; Visit Provider Nurse Practitioner Family
DX: G51.0 Bell's palsy (principal); R42 Dizziness and giddiness; R93.0 Abnormal findings on diagnostic imaging of skull and head, not elsewhere classified
CPT/HCPCS: 36415; 70544; 70547; 86618

== ENCOUNTER → 2022-01-15 13:52 | Outpatient (CLI) | payer OTHER, SELFPAY ==
[2022-01-15 13:05] VITALS: BMI 30.6
== END ==
PROVIDERS: PCP Family Medicine; Visit Provider Family Medicine
DX: Z71.3 Dietary counseling and surveillance (principal); E11.9 Type 2 diabetes mellitus without complications
CPT/HCPCS: 97802

== ENCOUNTER → 2022-02-20 15:00 | Outpatient (CLI) | payer OTHER, SELFPAY | PROVIDERS: PCP Family Medicine; Visit Provider Nurse Practitioner Family | DX: G47.33 Obstructive sleep apnea (adult) (pediatric) (principal); R42 Dizziness and giddiness; Z99.89 Dependence on other enabling machines and devices | CPT/HCPCS: 94762 ==

== ENCOUNTER 2022-03-09 12:46 | Emergency (ER) | payer OTHER, SELFPAY ==
--- NOTE | 2022-03-09 12:44 | ECG_ITS ---
APPROVED REPORT Exam: Resting ECG HR:99 bpm ECG Measurements Heart Rate 99 AXES ME 161 P 36 QRSd 84 QRS -16 QT 353 T 73 QTc 409 Conclusion SINUS RHYTHM MINIMAL VOLTAGE CRITERIA FOR LVH, CONSIDER NORMAL VARIANT [MEETS CRITERIA IN ONE OF: R(aVL), S(V1), R(V5), R(V5/V6)+S(V1)] NONSPECIFIC T-WAVE ABNORMALITY BORDERLINE ECG UNCONFIRMED REPORT Electronically signed by : Charles Lorenzana MD 03/10/2022 09:04:29
[2022-03-09 12:49] VITALS: BP 189/129; PULSE 102; RESP 18; TEMP 37.1; O2SAT 99; BMI 31.5
--- NOTE | 2022-03-09 12:53 | HMH.EDARPALP ---
ED Disposition Clinical Impression: Palpitations, Anxiety Hypertension Qualifiers: Hypertension type: primary hypertension Qualified Code(s): I10 - Essential (primary) hypertension Disposition: Home, Self-Care Condition on Discharge: Fair Instructions: Generalized Anxiety Disorder Additional Instructions: Follow-up with your primary care physician within 1 week. Even if you feel well. Return to the emergency department if you feel worse in any way. Avoid all sources of caffeine. Time of Disposition: 13:58 - Critical Care Critical Care Time: No Attestation: On , the high probability of a clinically significant, sudden or life threatening deterioration of the following system(s) required my full and direct attention, intervention and personal management. The time I documented below is in addition to time spent performing reported procedures but includes the following listed in this critical care notation. Medical Decision Making - Medical Records Medical records reviewed: Yes: I reviewed the patient's medical records. - Sean Inquiry Pt receiving controlled substance: No Vital Signs: 03/09/22 12:49 03/09/22 13:30 Temperature 98.7 F Temperature Source Oral Pulse Rate 90 Pulse Rate [Right] 102 H Respiratory Rate 18 18 Blood Pressure 145/95 H Blood Pressure [Right Arm] 189/129 H Blood Pressure Mean 118 Blood Pressure Mean [Right Arm] 149 Blood Pressure Source [Right Arm] Automatic Cuff Blood Pressure Position [Right Arm] Supine 02 Sat by Pulse Oximetry 99 98 Oxygen Delivery Method Room Air - Lab Data Lab results reviewed: Yes: I reviewed the patient's lab results. Lab Results 03/09/22 12:53: WBC 8.3, RBC 4.94, Hgb 14.4, Hct 44.0, MCV 89.1, MCH 29.2, MCHC 32.8, RDW 14.2, Plt Count 302, MPV 8.0, Neut % (Auto) 81.4 H, Lymph % (Auto) 6.1 L, [place] % (Auto) 5.8, Eos % (Auto) 6.4, Baso % (Auto) 0.3, Neut # (Auto) 6.7, Lymph # (Auto) 0.5 L, [place] # (Auto) 0.5, Eos # (Auto) 0.5 H, Baso # (Auto) 0.0 03/09/22 12:53: Sodium 143, Potassium 3.8, Chloride 107, Carbon Dioxide 27, Anion Gap 12.8, BUN 23 H, Creatinine 0.90, Estimated GFR 86, Est GFR ( Amer) 104, Glucose 108 H, Calcium 8.7, Total Bilirubin 1.0, AST 33, ALT 31, Alkaline Phosphatase 81, Troponin I 0.01, Total Protein 7.6 D, Albumin 4.4, Globulin 3.2, Albumin/Globulin Ratio 1.4 03/09/22 12:53: TSH 0.52, Free T4 Index 4.1 L, Thyroxine (T4) 12.9 H, T3 Uptake 32 Result diagrams: 03/09/22 12:53 03/09/22 12:53 Orders (Tests/Meds): ORDERS Category Date Time Status Troponin I Q3H Lab 03/09/22 16:00 Ordered Troponin I Q3H Lab 03/09/22 19:00 Ordered - ECG Data Tracing #1 I reviewed this ECG and interpreted as documented below: Patient is EKG was done at 1246. It shows a normal sinus rhythm with a rate of 99 bpm no evidence of ischemia. Axes are normal. There is no dysrhythmia. Remarkable EKG. Normal Sinus Rhythm: Yes Medical Decision Narrative: The patient's work-up in the emergency department did not reveal any life-threatening or dangerous causes for the patient's symptoms. The patient's blood pressure stabilized at 145/95 in the emergency department without any intervention. His heart rate went to 90. The patient's laboratory work is unremarkable. EKG did not show any ischemia or acute disease. I feel that the patient can be safely discharged home with instructions to follow-up with his primary care physician within the next week or so. Is no evidence of hypertensive emergency. There is no evidence of endorgan damage. Arrhythmia/Palpitations HPI - General Chief Complaint: Arrhythmia/Palpitations Stated Complaint: High blood pressure and heart rate Time Seen by Provider: 03/09/22 12:54 Mode of Arrival: Ambulatory Source of Information: Patient - History of Present Illness HPI narrative: Patient presents to the emergency department complaining of high blood pressure and fast heart rate since this morning.
[2022-03-09 13:03] LABS: Hemoglobin 14.4 g/dL (14.1-18.0); Red Blood Count 4.94 M/mm3 (4.60-6.20); White Blood Count 8.3 K/mm3 (4.8-10.8)
[2022-03-09 13:04] LABS: Basophils % 0.3 % (0.1-2.0); Eosinophils # 0.5 K/mm3 (0.0-0.4); Eosinophils % 6.4 % (0.1-12.0); Lymphocytes # 0.5 K/mm3 (0.7-4.5); Lymphocytes % 6.1 % (10-50); Mean Corpuscular HGB Conc 32.8 g/dL (31.8-35.4); Mean Corpuscular Hemoglobin 29.2 pg (27.0-31.2); Mean Corpuscular Volume 89.1 fl (80-94); Monocytes # 0.5 K/mm3 (0.1-1.0); Monocytes % 5.8 % (1.7-9.3); Neutrophils # 6.7 K/mm3 (1.8-7.8); Neutrophils % 81.4 % (37.0-80.0); Platelet Count 302 K/mm3 (142-424); Red Cell Distribution Width 14.2 % (11.5-17.5)
[2022-03-09 13:08] LABS: Chloride 107 mmol/L (98-107); Potassium 3.8 mmoL/L (3.5-5.1); Sodium 143 mmol/L (136-145)
[2022-03-09 13:10] LABS: Alanine Aminotransferase 31 U/L (12-78); Alkaline Phosphatase 81 U/L (38-126); Aspartate Amino Transferase 33 U/L (17-59); Blood Urea Nitrogen 23 mg/dl (9-20); Estimated Glomerular Filt Rate 86 ml/min (>60); GFR (African American) 104 ML/MIN (>60)
[2022-03-09 13:11] LABS: Albumin Level 4.4 g/dl (3.5-5.0); Albumin/Globulin Ratio 1.4 (1.1-1.8); Anion Gap 12.8 mEq/L (5-15); Calcium 8.7 mg/dl (8.4-10.2); Carbon Dioxide 27 mmol/L (22.0-30.0); Globulin 3.2 g/dL (1.3-3.2); Glucose 108 mg/dl (74-100); Total Protein,Serum 7.6 g/dl (6.3-8.2)
[2022-03-09 13:28] LABS: Triiodothryronine (T3) Uptake 32 % (23.5-40.5)
[2022-03-09 13:29] LABS: Free Thyroxine Index 4.1 ug/dL (5.93-13.13); T4 (Thyroxine) 12.9 ug/dl (5.53-11.0); Troponin I 0.01 ng/ml (0.00-0.034)
[2022-03-09 13:30] VITALS: BP 145/95; PULSE 90; RESP 18; O2SAT 98
[2022-03-09 13:43] LABS: Thyroid Stimulating Hormone 0.52 uIU/mL (0.465-4.68)
[2022-03-09 14:00] VITALS: BP 145/97; PULSE 88; RESP 12; O2SAT 98
[2022-03-09 14:09] VITALS: BP 145/97; PULSE 88; RESP 12; TEMP 37.1; O2SAT 98
== END 2022-03-09 14:10 | disposition home or self-care (01) ==
PROVIDERS: Emergency Provider Emergency Medicine; PCP Family Medicine
DX: R07.9 Chest pain, unspecified (principal); R00.2 Palpitations; I10 Essential (primary) hypertension; I49.9 Cardiac arrhythmia, unspecified; K21.9 Gastro-esophageal reflux disease without esophagitis; E11.9 Type 2 diabetes mellitus without complications; F41.9 Anxiety disorder, unspecified; Z79.01 Long term (current) use of anticoagulants; Z79.4 Long term (current) use of insulin; Z79.899 Other long term (current) drug therapy; Z88.0 Allergy status to penicillin; Z88.1 Allergy status to other antibiotic agents; Z88.3 Allergy status to other anti-infective agents; Z85.9 Personal history of malignant neoplasm, unspecified; Z87.442 Personal history of urinary calculi
CPT/HCPCS: 80053; 84436; 84443; 84479; 84484; 85025; 93005; 99284

== ENCOUNTER → 2022-05-14 14:00 | Outpatient (CLI) | payer OTHER, SELFPAY ==
--- NOTE | 2022-05-14 14:03 | US_ITS ---
FINAL REPORT TECHNIQUE: Ultrasound images of the kidneys were obtained. CLINICAL HISTORY: ADENOCARCINOMA OF PROSTATE FINDINGS: US RETROPERITONEAL The right kidney measures 12.9 cm in length. It is normal in echogenicity. There is no hydronephrosis. The left kidney measures 14.1 cm in length. It is normal in echogenicity. There is mild hydronephrosis. There is a small 1.5 cm cyst. The spleen measures 10.4 cm in length and is unremarkable. IMPRESSION: Mild left hydronephrosis. Small 1.5 cm left renal cyst. Reviewed, Interpreted and Dictated by Handy Hart III, MD Transcribed by Lisa Rivas Authenticated and . [facility]
== END ==
PROVIDERS: PCP Family Medicine; Visit Provider Urology
DX: C61 Malignant neoplasm of prostate (principal)
CPT/HCPCS: 76770

== ENCOUNTER 2022-05-29 09:30 | Outpatient (RCR) | payer OTHER, SELFPAY ==
--- NOTE | 2022-02-26 09:45 | HMH.PTOPEV ---
PT Outpatient Evaluation Rehab PT Outpatient Evaluation Start: 02/26/22 09:04 Freq: Status: Active Protocol: Document 02/26/22 09:10 CARMEL (Rec: 02/26/22 09:44 CARMEL [id number]) Electronically Signed By Aron Park PT 02/26/22 09:10 Outpatient Therapy Subjective History Subjective History This is the initial Physical Therapy evaluation for Shane Zamudio. Pt is a 61 y/o male referred to PT for c/o weakness and diziness. Pt reports in October he had a bout of vertigo and went to chiropractor. Pt states the chiropractor had him go to ER. Pt states he was diagnosed w / Bourgeois's Palsy. Pt was given steroids for inflammation wich caused dangerously high blood sugar. Pt was admitted to hospital for 2 weeks. Pt states he lost 40 pounds while in hospital and became severely deconditioned and weak. Now pt reports to PT for deconditioning, weakness and c/o dizziness and off balance. Chief Complaint Other Symptom Type Other Symptoms Relieved By Rest/Positioning Symptoms Aggravated By Physical Activity,Twisting, Walking Prior Functional Limitations None Current Functional Limitations Housework,Driving,Standing, Squatting,Recreation Activity, Walking,Stairs,Balance,Bending /Stooping Symptom Description Constant and Continuous Balance Eval Subjective Hx of Complaint Comment began Oct 2021 Chief Complaint vertigo No Did you feel dizzy, unsteady or faint? Yes Prior Functional Limitations Prior Functional [place] Level Fully Independent Hx of Falls Hx Falls No Gait/Posture Asssessment General Gait Observation Wide Based Gait,Shuffling Step ,Decrease Stride Lngth (R), Decrease Stride Lngth (L) Assistive Devices Straight Cane Level of Transfer Assist Standby Assistance Hip Observation in Gait Swing Externally Rotated,Abducted Hip Observation in Gait Stance Externally Rotated,Abducted Ankle/Foot Observation in Gait Swing Decreased Foot Clearance Hip Posture Stand
== END 2022-05-29 09:35 | disposition home or self-care (01) ==
LOC: PT 09:30
PROVIDERS: PCP Family Medicine; Visit Provider Nurse Practitioner Family
DX: R42 Dizziness and giddiness (principal); M62.81 Muscle weakness (generalized)
CPT/HCPCS: 97110; 97112; 97116; 97163; 97164; 97530

== ENCOUNTER → 2022-10-16 09:41 | Outpatient (CLI) | payer OTHER, SELFPAY | PROVIDERS: PCP Family Medicine; Visit Provider Urology | DX: Z01.812 Encounter for preprocedural laboratory examination (principal); Z20.822 Contact with and (suspected) exposure to COVID-19 | CPT/HCPCS: C9803; U0003; U0005 ==

== ENCOUNTER → 2022-11-05 13:15 | Outpatient (CLI) | payer OTHER, SELFPAY ==
[2022-11-05 15:37] LABS: Anion Gap 17.3 mEq/L (5-15); Blood Urea Nitrogen 25 mg/dl (9-20); Calcium 10.6 mg/dl (8.4-10.2); Carbon Dioxide 26 mmol/L (22.0-30.0); Chloride 103 mmol/L (98-107); Estimated Glomerular Filt Rate 44 ml/min (>60); GFR (African American) 53 ML/MIN (>60); Glucose 123 mg/dl (74-100); Potassium 4.3 mmoL/L (3.5-5.1); Sodium 142 mmol/L (136-145)
== END ==
PROVIDERS: PCP Family Medicine; Visit Provider Urology
DX: N20.0 Calculus of kidney (principal)
CPT/HCPCS: 36415; 80048

== ENCOUNTER → 2023-01-17 08:43 | Outpatient (CLI) | payer OTHER, SELFPAY ==
[2023-01-17 10:09] LABS: Anion Gap 10.9 mEq/L (5-15); Blood Urea Nitrogen 21 mg/dl (9-20); Calcium 9.3 mg/dl (8.4-10.2); Carbon Dioxide 28 mmol/L (22.0-30.0); Chloride 110 mmol/L (98-107); Estimated Glomerular Filt Rate 62 ml/min (>60); GFR (African American) 74 ML/MIN (>60); Glucose 170 mg/dl (74-100); Potassium 3.9 mmoL/L (3.5-5.1); Sodium 145 mmol/L (136-145)
== END ==
PROVIDERS: Physician Assistant; PCP Family Medicine; Visit Provider Urology
DX: I10 Essential (primary) hypertension (principal)
CPT/HCPCS: 36415; 80048

== ENCOUNTER → 2023-01-22 13:26 | Outpatient (CLI) | payer OTHER, SELFPAY ==
[2023-01-22 15:29] LABS: Prostate Specific Ag Screen < 0.1 ng/ml (0.0-4.0)
== END ==
PROVIDERS: Nurse Practitioner Family; PCP Family Medicine; Visit Provider Radiology Radiation Oncology
DX: C61 Malignant neoplasm of prostate (principal); Z12.5 Encounter for screening for malignant neoplasm of prostate
CPT/HCPCS: 36415; G0103

== ENCOUNTER → 2023-07-01 13:58 | Outpatient (CLI) | payer OTHER, SELFPAY ==
[2023-07-01 15:02] VITALS: BMI 35.8
== END ==
PROVIDERS: PCP Family Medicine; Visit Provider Family Medicine
DX: Z71.3 Dietary counseling and surveillance (principal); E11.9 Type 2 diabetes mellitus without complications
CPT/HCPCS: 97802

== ENCOUNTER → 2023-07-30 11:07 | Outpatient (CLI) | payer OTHER, SELFPAY ==
--- NOTE | 2023-07-30 11:11 | MR_ITS ---
FINAL REPORT CLINICAL HISTORY: CEVICAL MYELOPATHY COMPARISON: None FINDINGS: Multi planar MR imaging was obtained of the cervical spine. There is abnormal decreased signal throughout the cervical discs. The vertebrae are of normal height. There is no malalignment. The cervical cord demonstrates normal signal and configuration. C2-C3: There is no evidence of significant disc bulge or protrusion. There is no significant facet hypertrophy. C3-C4: Small midline disc protrusion. Mild spinal canal compromise. C4-C5: Moderate diffuse disc bulge. Endplate hypertrophy eccentric to the right. High-grade bilateral neuroforaminal narrowing. C5-C6: Moderate endplate hypertrophy. Moderate to high-grade bilateral neuroforaminal narrowing. C6-C7: Right paracentral disc protrusion. Moderate compromise right side of the spinal canal is best seen on image 44 series 8. C7-T1: Right paracentral disc protrusion. Moderate compromise right side of the spinal canal is best seen on image 54 of series 8. IMPRESSION: Multilevel changes of degenerative disc disease with neuroforaminal compromise most evident bilaterally at C4-5. Right paracentral disc protrusion at C6-7 and C7-T1 Reviewed, Interpreted and Dictated by Hamlet Salcedo MD Transcribed by Yolis Gerber Authenticated and [facility]
== END ==
LOC: RAD 11:08
PROVIDERS: PCP Family Medicine; Visit Provider Family Medicine
DX: M54.2 Cervicalgia (principal); G95.9 Disease of spinal cord, unspecified
CPT/HCPCS: 72141; 76376

== ENCOUNTER → 2023-09-15 12:43 | Outpatient (CLI) | payer OTHER, SELFPAY ==
--- NOTE | 2023-09-15 12:52 | XR_ITS ---
FINAL REPORT CLINICAL HISTORY: CERVICAL SPONDYLOSIS FINDINGS: 5 views of the cervical spine including flexion and extension were obtained. There is no acute fracture or subluxation. Moderate degenerative changes are seen throughout the mid and lower cervical spine with multilevel disc osteophyte complex. There is severe left and moderate right C4-5 neuroforaminal narrowing and moderate left neuroforaminal narrowing at C5-6. IMPRESSION: Multilevel degenerative disc disease, with severe left neuroforaminal narrowing at C4-5. No instability with flexion or extension. Reviewed, Interpreted and Dictated by Handy Hart III, MD Transcribed by Candie Napier Authenticated and [facility]
== END ==
PROVIDERS: PCP Family Medicine; Visit Provider Student in an Organized Health Care Education/Training Program
DX: M47.812 Spondylosis without myelopathy or radiculopathy, cervical region (principal)
CPT/HCPCS: 72052

== ENCOUNTER 2023-12-18 09:30 | Outpatient (RCR) | payer OTHER, SELFPAY | END 2023-12-18 10:30 | disposition home or self-care (01) | LOC: PT 09:30 | PROVIDERS: PCP Family Medicine; Visit Provider Physician Assistant | DX: M47.812 Spondylosis without myelopathy or radiculopathy, cervical region (principal) | CPT/HCPCS: 20560; 97010; 97014; 97035; 97110; 97140; 97163; 97164; 97530; G0283 ==

== ENCOUNTER 2024-01-23 16:38 | Outpatient (CLI) | payer OTHER, SELFPAY ==
[2024-01-23 18:14] LABS: Prostate Specific Ag Screen < 0.1 ng/ml (0.0-4.0)
== END 2024-01-23 23:59 ==
LOC: LAB 16:39
PROVIDERS: PCP Family Medicine; Visit Provider Nurse Practitioner Family
DX: C61 Malignant neoplasm of prostate (principal)
CPT/HCPCS: 36415; G0103

== ENCOUNTER 2024-05-26 15:40 | Emergency (ER) | payer OTHER, SELFPAY ==
[2024-05-26 15:45] VITALS: BP 156/98; PULSE 66; RESP 20; TEMP 36.9; O2SAT 97; BMI 36.7
[2024-05-26 15:51] VITALS: BP 156/98; PULSE 68; O2SAT 99
[2024-05-26 16:00] VITALS: BP 158/89; PULSE 74; O2SAT 98
--- NOTE | 2024-05-26 16:06 | ED_ITS ---
<Statement entered by Avery Higgins MD - 05/26/24 17:55> I was consulted by the ANDERSON, and we discussed the complexity of the problems being addressed. I approved the treatment and management plan for this patient's care in the emergency department, thus performing a substantive portion of the medical decision making. Avery Higgins MD Discharge Plan Disposition Patient Disposition: Home, Self-Care Condition: Good Prescriptions Prescriptions: New methocarbamol 750 mg tablet 750 mg PO Q6H PRN (Reason: muscle spasm) Qty: 10 0RF lidocaine 5 % adhesive patch,medicated 1 patch topical DAILY PRN (Reason: muscle spasm) Qty: 30 0RF Rx Instructions: leave on most painful area for up to 12 hrs No Action lisinopril-hydrochlorothiazide 10-12.5 mg tablet 1 tab PO DAILY mupirocin 2 % ointment 1 applic TOPICAL BID Qty: 15 1RF amlodipine [Norvasc] 5 mg tablet 5 mg PO DAILY Eliquis 2.5 mg tablet See Rx Instructions .ROUTE .COMPLEX Qty: 180 1RF Dose Instruction: Take 1 tablet by mouth twice daily Rx Instructions: Take 1 tablet by mouth twice daily metoprolol succinate 100 MG tablet extended release 24 hr 100 mg PO DAILY Qty: 30 1RF pantoprazole 40 MG tablet,delayed release (DR/EC) 40 mg PO HS Qty: 30 1RF insulin glargine 100 UNIT/ML insulin pen 20 units SQ HS Qty: 1 1RF Referrals Follow up/Referrals: Renny Ward, PT [Physical Therapist] - See instructions (Left lumbar back pain) Bal Heard MD [Primary Care Provider] - See instructions Activity Restrictions/Add. Instructions Additional Instructions/Restrictions: I have referred you to physical therapy to start working on your back. Please follow-up with your PCP for ongoing evaluation. You may need further imaging and referrals if no improvement. Return to ER for any worsening signs or symptoms as needed. Clinical Impressions Clinical Impression: Lumbar back pain Discharge ED Provider: Avery Higgins General Adult HPI General Chief complaint: PAIN Stated complaint: back pain Time Seen by Provider: 05/26/24 16:05 History of Present Illness HPI narrative: Patient presents for evaluation of left flank pain. Patient gives about a 48- hour history of left-sided flank pain that does not radiate. Patient reports it might be possibly related to a nontraumatic back injury suffered approximately 3 weeks ago. He did see his PCP who gave him a injection and a prescription for cyclobenzaprine moderate improvement. However to 3 days ago he began having similar symptoms again. He has no radicular or neuropathic involvement pain does not radiate. Pain is worse with bending any motion really and there is no relieving factors. Denies chest pain fever chills hemoptysis hematochezia melena nausea vomit diarrhea. Related Data Home Medications Medication Instructions Recorded Confirmed lisinopril 10 1 tab PO DAILY 01/09/22 02/13/23 mg-hydrochlorothiazide 12.5 mg tablet amlodipine 5 mg tablet (Norvasc) 5 mg PO DAILY 05/08/22 02/13/23 Previous Rx's Medication Instructions Recorded insulin glargine 100 unit/mL (3 20 units SQ HS #1 ea 12/19/21 mL) subcutaneous pen metoprolol succinate 100 mg 100 mg PO DAILY #30 tabs 12/19/21 tablet,extended release 24 hr pantoprazole 40 mg tablet,delayed 40 mg PO HS #30 tabs 12/19/21 release mupirocin 2 % topical ointment 1 applic topical BID #15 grams 02/12/22 apixaban 2.5 mg tablet (Eliquis) See Rx Instructions .Route 10/27/23 .COMPLEX #180 tabs lidocaine 5 % topical patch 1 patch topical DAILY PRN muscle 05/26/24 spasm #30 ea methocarbamol 750 mg tablet 750 mg PO Q6H PRN muscle spasm #10 05/26/24 tabs Allergies Allergy/AdvReac Type Severity Reaction Status Date / Time amoxicillin Allergy Unknown Verified 02/13/23 08:52 [facility] Disclaimer: The information contained in this section may have been updated after the patient was seen, as this information can be updated by other users. Medical History (Updated 05/26/24 @ 17:39 by IRLANDA Teixeira) Diabetes mellitus Current use of retirement anticoagulation H/O nephrolithotomy with removal of calculi Sinus bradycardia PAF (paroxysmal atrial fibrillation) Current use of retirement anticoagulation HBP (high blood pressure) Atrial flutter HARINI (acute kidney injury) Esophageal abnormality Social History Smoking Status: Never smoker alcohol intake: current alcohol intake frequency: a few times a week substance use type: denies use current occupational status: unemployed Travel in the last 8 weeks: Inside the [place] household members: spouse housing: house caffeine: Yes ROS Obtained: Yes Systems reviewed as appropriate & no additional complaints except as documented Physical Exam General General appearance: alert and in no apparent distress Respiratory Respiratory exam: Present normal lung sounds bilaterally Cardiovascular Cardiovascular exam: Present regular rate and normal rhythm Extremities Exam Extremities exam: Present normal inspection and full ROM Back Exam Back exam: Present normal inspection, tenderness (Patient is tender to palpation in the left flank and paraspinous musculature but no midline tenderness) and paraspinal tenderness; Absent full ROM or vertebral tenderness Neurological Exam Neurological exam: Present alert, oriented X3, CN II-XII intact and reflexes normal; Absent normal gait (Patient has to walk with a cane at baseline) or motor sensory deficit Skin Skin exam: Present warm, dry and normal color Medical Decision Making Medical Records Medical records reviewed: Yes I reviewed the patient's medical records. Esan Inquiry Pt receiving controlled substance: No Vital Signs: 05/26/24 15:45 05/26/24 15:51 05/26/24 16:00 Temperature 98.5 F Temperature Source Oral Pulse Rate 68 74 Pulse Rate [Left Radial] 66 Respiratory Rate 20 Blood Pressure 156/98 H 158/89 H Blood Pressure [Right Arm] 156/98 H Blood Pressure Mean 112 Blood Pressure Mean [Right Arm] 117 02 Sat by Pulse Oximetry 97 99 98 Oxygen Delivery Method Room Air Room Air 05/26/24 16:30 05/26/24 17:33 Temperature Temperature Source Pulse Rate 68 70 Pulse Rate [Left Radial] Respiratory Rate Blood Pressure 155/90 H 163/93 H Blood Pressure [Right Arm] Blood Pressure Mean 111 Blood Pressure Mean [Right Arm] 02 Sat by Pulse Oximetry 99 95 Oxygen Delivery Method Room Air Room Air Lab Data Lab results reviewed: Yes I reviewed the patient's lab results. Lab Results 05/26/24 15:51: Urine Color Yellow, Urine Appearance Clear, Urine pH 5.5, Ur Specific [place] >= 1.030, Urine Protein Negative, Urine Glucose (UA) 1+, Urine Ketones Negative, Urine Blood Negative, Urine Nitrate Negative, Urine Bilirubin Negative, Urine Urobilinogen 0.2, Ur Leukocyte Esterase Negative, Urine RBC None, Urine WBC Occasional, Ur Squamous Epith Cells Occasional, Urine Bacteria None 05/26/24 16:58: WBC 7.0, RBC 5.11, Hgb 15.2, Hct 44.5, MCV 87.0, MCH 29.8, MCHC 34.2, RDW 14.5, Plt Count 276, MPV 7.7, Neut % (Auto) 66.0, Lymph % (Auto) 22.1, [place] % (Auto) 6.9, Eos % (Auto) 3.7, Baso % (Auto) 1.3, Neut # (Auto) 4.7, Lymph # (Auto) 1.6, [place] # (Auto) 0.5, Eos # (Auto) 0.3, Baso # (Auto) 0.1, Sodium 140, Potassium 3.9, Chloride 103, Carbon Dioxide 30, Anion Gap 10.9, BUN 22 H, Creatinine 1.10, Estimated Creat Clear 113, Estimated GFR 68, Est GFR ( Amer) 82, Glucose 213 H, Calcium 9.6, Magnesium 1.9, Total Bilirubin 0.7, AST 42, ALT 45, Alkaline Phosphatase 67, Total Creatine Kinase 107, C-Reactive Protein 3.2, Total Protein 8.0, Albumin 4.5, Globulin 3.5 H, Albumin/Globulin Ratio 1.3 05/26/24 16:58 05/26/24 16:58 Orders (Tests/Meds): ED MEDICATIONS Generic Name Dose Route Start Last Admin Trade Name Freq PRN Reason Stop Dose Admin Lidocaine 1 each 05/26/24 17:52 Lidocaine 5% Transdermal Patch TP 05/26/24 17:53 ONCE ONE Sodium Chloride 10 ml 05/26/24 16:59 Sodium Chloride 0.9% 10ml Flush Syringe IV 06/25/24 16:58 NEEDED PRN Maintain IV Site Discontinued Medications Generic Name Dose Route Start Last Admin Trade Name Freq PRN Reason Stop Dose Admin Acetaminophen 1,000 mg 05/26/24 16:19 05/26/24 17:02 Acetaminophen 1,000mg/100ml Vial IV 05/26/24 16:20 1,000 mg ONCE ONE Administration Dexamethasone Sodium Phosphate 10 mg 05/26/24 16:19 05/26/24 17:02 Dexamethasone 4mg/Ml 5ml Mdv IV 05/26/24 16:20 10 mg ONCE ONE Administration Ketorolac Tromethamine 15 mg 05/26/24 16:19 05/26/24 17:02 Ketorolac 30mg/Ml Vial IV 05/26/24 16:20 15 mg ONCE ONE Administration Methocarbamol 500 mg 05/26/24 16:19 05/26/24 16:49 Methocarbamol 500mg Tablet PO 05/26/24 16:20 500 mg ONCE ONE Administration ORDERS Category Date Time Status CT lumbar spine wo con Stat Cat Scan 05/26/24 16:19 Taken CBC w/Auto Diff [Complete Blood Count Auto Diff] Stat Lab 05/26/24 16:58 Completed CK [Creatine Kinase] Stat Lab 05/26/24 16:58 Completed CMP [Comprehensive Metabolic Panel] Stat Lab 05/26/24 16:58 Completed CRP [C-Reactive Protein] Stat Lab 05/26/24 16:58 Completed Magnesium Stat Lab 05/26/24 16:58 Completed UA [Urinalysis and Microscopic] Stat Lab 05/26/24 15:51 Completed Medical Decision Narrative: In summary patient is a 64-year-old male who presents to the emergency department for evaluation of left flank pain. Patient is hemodynamically stable upon arrival, afebrile. Physical exam is remarkable for left paraspinous and flank tenderness to palpation but no midline spinal tenderness no bony deformity no neurologic deficits no paresthesias no neuropathies.. Differential diagnosis includes muscle tear versus kidney stone versus pyelonephritis versus occult fracture versus osteoarthritis of the spine etc. Initial workup will be conducted with hematologic labs urinalysis CT scan lumbar spine. Initial interventions include Toradol Tylenol Decadron Robaxin. Initial workup reviewed by me shows his hematologic labs are nonactionable and my informal interpretation of his imaging shows no acute bony abnormality with radiologist read pending. Upon repeat evaluation moderate improvement of his symptoms. Given this is referred to physical therapy and back to his PCP for evaluation for possible MRI. Critical Care Critical Care Time Critical Care Time: No
--- NOTE | 2024-05-26 16:19 | CT_ITS ---
PROCEDURE INFORMATION: Exam: CT Lumbar Spine Without Contrast Exam date and time: 05/26/2024 4:58 PM Age: 64 years old Clinical indication: Low back pain; Additional info: Acute low back pain TECHNIQUE: Imaging protocol: Computed tomography of the lumbar spine without contrast. Radiation optimization: All CT scans at this facility use at least one of these dose optimization techniques: automated exposure control; mA and/or kV adjustment per patient size (includes targeted exams where dose is matched to clinical indication); or iterative reconstruction. COMPARISON: 1. NM BONE SCAN WHOLE BODY 02/11/2020 1:[address] ABDOMEN PELVIS WO CON 01/24/2021 3:[address] ABDOMEN PELVIS W CON 02/11/2020 3:43 PM FINDINGS: Bones/joints: There is slight retrolisthesis of L3 on L4. There is diffuse osseous demineralization. No evidence of acute spondylolisthesis or vertebral subluxation. Vertebral body heights are generally preserved, but some endplate sclerosis and anterior osteophytes are noted at multiple levels. Narrowing of multiple intervertebral disc spaces observed, indicative of degenerative disc disease. Hypertrophic changes are seen in the facet joints, consistent with osteoarthritis. No fractures or bony lesions identified. No abnormalities seen in adjacent osseous structures. Disc bulges are noted at L2-L3 and L3-L4 with associated canal narrowing. Soft tissues: Unremarkable. Other findings: No obvious abnormalities seen in the prevertebral and paravertebral soft tissues. IMPRESSION: 1. Degenerative changes without acute abnormality detected. 2. Disc bulges are noted at L2-L3 and L3-L4 with associated canal narrowing. 3. If clinical concern persists, MRI would be suggested.
[2024-05-26 16:24] LABS: Microscopic, Urine URINE MICROSCOPIC (MICROSCOPIC)
[2024-05-26 16:30] VITALS: BP 155/90; PULSE 68; O2SAT 99
[2024-05-26 16:32] LABS: Appearance,Urine CLEAR (Clear); Bilirubin,Urine Negative (Negative); Blood, Urine Negative (Negative); Color,Urine YELLOW (Yellow); Glucose,Urine (UA) 1+ (Negative); Ketones,Urine Negative (Negative); Leukocyte Esterase,Urine Negative (Negative); Nitrate,Urine Negative (Negative); PH,Urine 5.5 (5.0-8.5); Protein,Urine Negative (Negative); Specific Gravity, Urine >= 1.030 (1.005-1.030); Urobilinogen,Urine 0.2 EU/dl (0.2)
[2024-05-26] MEDS: METHOCARBAMOL 500MG TABLET 500 MG PO (16:49)
--- NOTE | 2024-05-26 16:49 | PC.NURSE ---
Rounded on pt. No needs voiced at this time. Call light within reach.
--- NOTE | 2024-05-26 17:00 | PC.NURSE ---
pt gone to RAD via wheelchair
[2024-05-26 17:01] LABS: Squamous Epithelial Cell,Urine Occasional #/hpf (0-5); WBC,Urine Occasional #/hpf (0-3)
[2024-05-26] MEDS: KETOROLAC 30MG/ML VIAL 15 MG IV (17:02)
[2024-05-26] MEDS: ACETAMINOPHEN 1,000MG/100ML VIAL 1000 MG IV (17:02)
[2024-05-26] MEDS: DEXAMETHASONE 4MG/ML 5ML MDV 10 MG IV (17:02)
[2024-05-26 17:04] LABS: Basophils # 0.1 K/mm3 (0-0.2); Basophils % 1.3 % (0.1-2.0); Eosinophils # 0.3 K/mm3 (0.0-0.4); Eosinophils % 3.7 % (0.1-12.0); Hematocrit 44.5 % (42.0-52.0); Hemoglobin 15.2 g/dL (14.1-18.0); Lymphocytes # 1.6 K/mm3 (0.7-4.5); Lymphocytes % 22.1 % (10-50); Mean Corpuscular HGB Conc 34.2 g/dL (31.8-35.4); Mean Corpuscular Hemoglobin 29.8 pg (27.0-31.2); Mean Platelet Volume 7.7 fl (7.4-10.4); Monocytes # 0.5 K/mm3 (0.1-1.0); Monocytes % 6.9 % (1.7-9.3); Neutrophils # 4.7 K/mm3 (1.8-7.8); Platelet Count 276 K/mm3 (142-424); Red Blood Count 5.11 M/mm3 (4.60-6.20); Red Cell Distribution Width 14.5 % (11.5-17.5)
[2024-05-26 17:13] LABS: Alanine Aminotransferase 45 U/L (12-78); Albumin Level 4.5 g/dl (3.5-5.0); Albumin/Globulin Ratio 1.3 (1.1-1.8); Alkaline Phosphatase 67 U/L (38-126); Anion Gap 10.9 mEq/L (5-15); Aspartate Amino Transferase 42 U/L (17-59); Bilirubin,Total 0.7 mg/dl (0.2-1.3); Blood Urea Nitrogen 22 mg/dl (9-20); Calcium 9.6 mg/dl (8.4-10.2); Carbon Dioxide 30 mmol/L (22.0-30.0); Chloride 103 mmol/L (98-107); Creatine Kinase 107 U/L (55-170); Creatinine Clearance Estimated 113 mL/min (50-200); Estimated Glomerular Filt Rate 68 ml/min (>60); GFR (African American) 82 ML/MIN (>60); Globulin 3.5 g/dL (1.3-3.2); Glucose 213 mg/dl (74-100); Magnesium 1.9 mg/dl (1.6-2.3); Potassium 3.9 mmoL/L (3.5-5.1); Sodium 140 mmol/L (136-145)
[2024-05-26 17:18] LABS: C-Reactive Protein 3.2 mg/L (0-4)
--- NOTE | 2024-05-26 17:20 | PC.NURSE ---
PT returned from RAD
[2024-05-26 17:33] VITALS: BP 163/93; PULSE 70; O2SAT 95
--- NOTE | 2024-05-26 17:54 | PC.NURSE ---
Rounded on pt. No needs voiced at this time. Call light remains within reach.
--- NOTE | 2024-05-26 17:57 | PC.NURSE ---
Laci FAIRCHILD at BS to update pt on results and POC
[2024-05-26 18:10] VITALS: BP 165/76; PULSE 69; RESP 18; TEMP 36.9; O2SAT 98
[2024-05-26] MEDS: LIDOCAINE 5% TRANSDERMAL PATCH 1 EACH TP (18:22)
== END 2024-05-26 18:24 | disposition home or self-care (01) ==
PROVIDERS: Physician Assistant; Emergency Provider Emergency Medicine; PCP Family Medicine
DX: M54.50 Low back pain, unspecified (principal); E11.9 Type 2 diabetes mellitus without complications; I48.0 Paroxysmal atrial fibrillation; I10 Essential (primary) hypertension; Z79.01 Long term (current) use of anticoagulants; Z79.4 Long term (current) use of insulin
CPT/HCPCS: 72131; 80053; 81001; 82550; 83735; 85025; 86140; 96374; 96375; 99284; J0131; J1885

== ENCOUNTER 2024-07-19 09:49 | Outpatient (CLI) | payer OTHER, SELFPAY ==
--- NOTE | 2024-07-19 09:49 | CA_ITS ---
APPROVED REPORT EXAM: Comprehensive 2D, Doppler, and color-flow Echocardiogram Card Reader: Paola Arteaga RT(R) Ht: 5 ft 10 in Wt: 254lbs BSA: 2.31 BP: 170/85 mmHg Indications: AFIB, cardiomegaly, HTN, hyperlipidemia, prostate ca, bells palsy, DM. 2D Dimensions EF AP4 66.50 % GL Strain -17.5 % M-Mode Dimensions RVDd 2.99 cm (0.9-2.6) LA Diam 4.14 cm (1.9-4.0) LVDd 4.01 cm (3.5-5.7) LVDs 2.99 cm (3.5-5.7) IVSd 1.57 cm (0.6-1.1) PWd 1.52 cm (0.6-1.1) EF (Teich) 50.70% FS 25.40% EDV (Teich) 70.40 mL ESV (Teich) 34.70 mL LV Diastology E Decel Time 423 (160-240 msec) E/A Ratio 0.70 Mitral Valve MV A Velocity 76.0 (40-130 cm/s) E/A Ratio 0.70 Left Ventricle The left ventricle is normal size. The left ventricular systolic function is normal. The left ventricular ejection fraction is within the normal range. There is increased LV wall thickness. There is normal LV segmental wall motion. Transmitral Doppler flow pattern suggests impaired LV relaxation. LVEF is 55%. Right Ventricle The right ventricle is normal size. The right ventricular systolic function is normal. Atria The left atrium size is normal. The right atrium size is normal. There is no Doppler evidence of interatrial shunt. Aortic Valve The aortic valve opens well. There is no aortic valvular stenosis. No aortic regurgitation is present. Mitral Valve The mitral valve is normal in structure. No evidence of mitral valve stenosis. Trace mitral valve regurgitation noted. Tricuspid Valve The tricuspid valve leaflets are thin and pliable. Trace tricuspid regurgitation. There insufficient TR jet to estimate RVSP. Pulmonic Valve The pulmonary valve is normal in structure. Trace pulmonic regurgitation. Great Vessels The aortic root is normal in size. The ascending aorta is normal in size. IVC is normal in size and collapses >50% with inspiration. Pericardium Trivial, anterior pericardial effusion. No echo indications of tamponade. Other Information Study Quality: Fair Conclusion Normal biventricular systolic function. No significant valvular stenosis or regurgitation. Trivial, anterior pericardial effusion. No echo indications of tamponade. Electronically signed by : Elaine Page MD 07/20/2024 09:50:12
== END 2024-07-19 23:59 | disposition home or self-care (01) ==
LOC: RT 09:49
PROVIDERS: PCP Family Medicine; Visit Provider Physician Assistant
DX: I51.7 Cardiomegaly (principal)
CPT/HCPCS: 93306

== ENCOUNTER 2024-07-23 09:00 | Outpatient (RCR) | payer OTHER, SELFPAY ==
--- NOTE | 2024-06-07 12:06 | HMH.PTOPEV ---
PT Outpatient Evaluation Rehab PT Outpatient Evaluation Start: 06/07/24 08:04 Freq: Status: Active Protocol: Document 06/07/24 11:15 MANDIE (Rec: 06/07/24 12:06 MANDIE [id number]) E-signed By Vladimir Bales, PT Outpatient Therapy Subjective History Subjective History This is the initial PT eval for Shane Zamudio, 64 yowm who presents with c/o L side low back pain radiating into his flank and L groin. He reports pain began suddenly ~ 1-2 mos ago with no known injury. He reports any prolonged position increases his pain and he has difficulty with any bending or sit/stand transfers. 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 He had CT scan performed which shows L2/3 and L3/4 disc bulges. He has been taking prescribed muscle relaxers and using heating pad with little decrease in his pain. New diagnosis of cancer in past 12 No months? Chief Complaint Pain Symptom Type Sharp Symptoms Relieved By Nothing Symptoms Aggravated By Standing,Physical Activity, Twisting,Walking Prior Functional Limitations Balance Current Functional Limitations Sleeping,Standing,Sitting, Recreation Activity,Walking, Balance,Bending/Stooping Symptom Description Constant but Variable Level of pain today (0-10) 3 Pain scale - at its worst (0-10) 10 Lumbopelvic Eval Palapation tenderness left lumbar spinal tenderness Yes: 2/4 paraspinal tenderness Yes: 2/4 L side Lumbar/Sacral Palpation Findings Tenderness Lumbar/Sacral Palpation Overall Comment L PSIS 2/4 Accessory Movement L-spine Vertebrae Accessory Movements Central P/A [place] that Elicit Symptoms L2 bilateral L3 bilateral L4 bilateral Range of Motion Lumbar Spine Active Flexion Range of 0-40 Motion (degrees) Lumbar Spine Active Extension Range of 0-10 Motion (degrees) Left Lumbar Spine Lateral Flexion Active 0-5 Range of Motion (degrees) Right Lumbar Spine Lateral Flexion 0-5 Active Range of Motion (degrees) Manual Muscle Test Bilateral Knee Extension Strength Grade 5 Normal Knee Flexion Strength Grade 5 Normal Hip Flexion Strength Grade 5 Normal Hip Abduction Strength Grade 5 Normal Hip Adduction Strength Grade 5 Normal Extensor Hallucis Longus Strength Grade 5 Normal Ankle Dorsiflexion Strength Grade 5 Normal Gastronemius/Soleus Strength Grade 5 Normal Special Tests Hip Scouring (Quadrant) Test Negative Left,Negative Right Hip Herber (CHAIM) Test Negative Left,Negative Right Hip Piriformis Test Negative Right,Positive Left Hip Bowstring (Cram) Test Negative Left,Negative Right Sciatic Nerve Tension Test Negative Right,Positive Left Unilateral Straight Leg Raise (Lasegue) Negative Left,Negative Right Test Lumbar Long Homer Distraction Test/Manual Negative Traction Oswestry Index Section 1 Pain Intensity The pain comes and goes and is severe Section 2 Personal Care (Washing,Dresing) increase the pain and I find it necessary to change my way of doing it Section 3 Lifting lifting heavy weights off the floor, but I can manage light to medium Section 4 Walking I cannot walk more than one mile wihtout increasing pain Section 5 Sitting Pain prevents me from sitting for more than one hour Section 6 Standing I cannot stand more than 1/2 hour without increasing pain Section 7 Sleeping Because of my pain, my normal night's sleep is less than 6 hours sleep Section 8 Social Life Pain has restricted my social life and I do not go out often Section 9 Traveling I get extra pain while traveling, but it does not compel me to seek al Section 10 Changing Degreee of Pain My pain is neither getting better or worse Score and Risk Level Oswestry Sc 28 Oswestry Risk Level Severe Disability Outpatient Therapy Assessment Impairments Problems/Impairmments Palpation Tenderness,Impaired Range of Motion,Impaired Endurance,Impaired Walking, Impaired Standing,Impaired Sitting,Impaired Lifting, Impaired Household Care, Impaired Bending,Impaired Recreational Activities, Impaired Balance,Lymphedema Present,Subjective C/O Pain, Impaired Self Care/Self Management Prognosis Rehab Potential Good Comment Skilled therapy is necessary to reduce discomfort with mobility and aid pt return to PLOF. Clinical Impression Consistent with Diagnosis Yes Short Term Goals Number of Weeks 2 Decreased Palpation Tenderness Yes: 1/4 L side low back Increase Range of Motion Yes: lumbar AROM by 5 deg all dir Increase Ability to Stand Yes: > 15 min without pain Improve Oswestry Score Yes: <25 Decrease Subjective C/O Pain Yes: 8/10 at worst L side low back Patient to be Ind w/ HEP Yes Usp Goals Number of Weeks 4 Decreased Palpation Tenderness Yes: L side low back 0/4 Increase Range of Motion Yes: lumbar AROM by 10 deg all dir Increase Ability to Stand Yes: >30 min without pain Improve Ability For Household Care Yes: without pain Improve Oswestry Score Yes: <20 Decrease Subjective C/O Pain Yes: 5/10 at worst L Low back Patient to be Ind w/ Advanced HEP Yes Outpatient Therapy Plan of Care Treatment Plan May Include Therapeutic Exercise Including Home Yes Exercise Program Manual Therapy Techniques Yes Neuromuscular Re-education Yes Therapeutic Activities to Return to Yes Previous Functional/Work Level ADL/Self Care Education Yes Thermal Modalities Yes Electrical Stimulation Yes Ultrasound/Phonophoresis Yes Orthotics/Bracing/Splinting Yes Massage Yes Eval/Re-Eval Yes Frequency Times per week 2 Duration Number of Weeks 4 Addendums This patient is a candidate for social No or vocational rehab? Patient/Guardian verbally acknowledges Yes understanding of treatment program and consents to further treatment? Patient/Guardian verbally acknowledges Yes understanding of diagnosis, prognosis and goals for treatment? Eval Complexity PT Charges 40501 - High Complexity Shoulder/Elbow Eval Shoulder Objective Measurements Elbow Objective Measurements PHYSICIAN CERTIFICATION: I certify the specified therapy services for Shane Zamudio are required, authorized, and reviewed every 30 days.
--- NOTE | 2024-07-09 16:40 | HMH.RHREAS ---
Rehab Reassessment Rehab OP Re-assessment Start: 06/07/24 08:04 Freq: Status: Active Protocol: Document 07/09/24 16:28 SHAYYNicholasNIDA (Rec: 07/09/24 16:39 PHORNE [id number]) E-signed By Vladimir Bales, PT Oswestry Index Section 1 Pain Intensity The pain comes and goes and is moderate Section 2 Personal Care (Washing,Dresing) my way of washing or dressing even though it causes some pain Section 3 Lifting Pain prevents me from lifting weights off the floor Section 4 Walking I cannot walk more than one mile wihtout increasing pain Section 5 Sitting I can sit in my favorite chair for as long as I like Section 6 Standing I cannot stand more than 1/2 hour without increasing pain Section 7 Sleeping I get pain in bed, but it does not prevent me from sleeping well Section 8 Social Life Pain has no significant effect on my social life apart from limiting Section 9 Traveling I get extra pain while traveling, but it does not compel me to seek al Section 10 Changing Degreee of Pain My pain seems to be getting better, but improvement is slow Score and Risk Level Oswestry Sc 18 Oswestry Risk Level Moderate Disability Rehab Re-assessment Subjective Subjective Pt states the left side of my back is very sore today. I was on a mower for a while yesterday so I feel like that may be why. Pain 4/10 today. Objective Objective Notes AROM lumbar spine (in deg): FLEX 0-55, EXT 0-15, R SB 0-15 , L SB 0-10. PAIN: 4/10 current, at worst 6 /10 L side low back. Oswestry: 18 this date vs 28 on IE. TTP: 0/4 B lumbar paraspinals Assessment Progress Assessment Progressing as Expected Assessment Notes Pt has made significant overall progress with less pain and improved ROM. He continues to be limited with L SB which increases his pain. Skilled therapy remains indicated to return pt to PLOF . Patient goals met ST/6 LT/7 Plan Plan Continue per initial POC. Frequency of Therapy 2 x/wk Duration of therapy 4 wks Time and Billing Re-Eval Time 12 Re-Eval Billing Units 1 PHYSICIAN CERTIFICATION: I certify the specified therapy services for Shane Violet Zamudio are required, authorized, and reviewed every 30 days.
== END 2024-07-23 23:59 | disposition home or self-care (01) ==
LOC: PT 09:00
PROVIDERS: Visit Provider Family Medicine
DX: M54.50 Low back pain, unspecified (principal)
CPT/HCPCS: 97014; 97110; 97163; 97164; G0283

== ENCOUNTER 2024-11-15 09:10 | Emergency (ER) | payer OTHER, SELFPAY ==
[2024-11-15 09:25] VITALS: BP 156/88; PULSE 67; RESP 18; TEMP 36.8; O2SAT 99; BMI 36.1
--- NOTE | 2024-11-15 09:40 | EXP.UTC ---
Discharge Plan Disposition Patient Disposition: Home, Self-Care Condition: Good Prescriptions Prescriptions: No Action potassium chloride 10 mEq capsule, extended release 10 meq PO DAILY Patient Comments: TAKE 1 CAPSULE BY MOUTH ONCE DAILY metoprolol succinate 100 mg tablet extended release 24 hr 100 mg PO DAILY Patient Comments: TAKE 1 TABLET BY MOUTH ONCE DAILY amlodipine 5 mg tablet 5 mg PO DAILY Patient Comments: TAKE 1 TABLET BY MOUTH ONCE DAILY pantoprazole 40 mg tablet,delayed release (DR/EC) 40 mg PO DAILY Patient Comments: TAKE 1 TABLET BY MOUTH ONCE DAILY lisinopril-hydrochlorothiazide 10-12.5 mg tablet 1 tab PO DAILY Patient Comments: TAKE 1 TABLET BY MOUTH ONCE DAILY insulin glargine [Basaglar KwikPen U-100 Insulin] 100 unit/mL (3 mL) insulin pen See Rx Instructions .ROUTE .COMPLEX Rx Instructions: . Eliquis 2.5 mg tablet 2.5 mg PO DAILY Referrals Follow up/Referrals: Bal Heard MD [Primary Care Provider] - See instructions Activity Restrictions/Add. Instructions Additional Instructions/Restrictions: Oatmeal bathes may help to dry up the rash on your face Calamine lotion to area Over the counter Benadryl may help with the itching Follow up with your Family Doctor if symptoms do not improve Clinical Impressions Clinical Impression: Rash and nonspecific skin eruption Instructions Patient Instructions: DI for Rash Print Language Print Language: Azeri Discharge ED Provider: Joy Dailey [facility] General Stated complaint: poison andrés rash on face Mode of Arrival: Ambulatory Source of Information: Patient Limitations: No Limitations Time Seen by Provider: 11/15/24 09:44 Description of Symptoms (Recalled from Triage Doc. by RN): PATIENT C/O POISON ANDRÉS RASH TO FACE X 4 DAYS HEENT Symptoms (Recalled from RN notes): No Resp Symptoms (Recalled from RN notes): No Skin Symptoms (Recalled from RN notes): Yes MS Symptoms (Recalled from RN notes): No Functional Status (Recalled from RN notes): WNL History of Present Illness Provider Complaint: Patient states that he was trimming some bushes away from his spicket at home and got into some poison andrés now he has broke out on his right cheek area just under his eye and he has been using some Calamine lotion but came in to see he could get something to help Related Data Home Medications ?Medication ?Instructions ?Recorded ?Confirmed amlodipine 5 mg tablet 5 mg PO DAILY 11/15/24 11/15/24 apixaban 2.5 mg tablet (Eliquis) 2.5 mg PO DAILY 11/15/24 11/15/24 insulin glargine 100 unit/mL (3 See Rx Instructions .Route .COMPLEX 11/15/24 11/15/24 mL) subcutaneous pen (Basaglar KwikPen U-100 Insulin) lisinopril 10 1 tab PO DAILY 11/15/24 11/15/24 mg-hydrochlorothiazide 12.5 mg tablet metoprolol succinate 100 mg 100 mg PO DAILY 11/15/24 11/15/24 tablet,extended release 24 hr pantoprazole 40 mg tablet,delayed 40 mg PO DAILY 11/15/24 11/15/24 release potassium chloride 10 mEq 10 meq PO DAILY 11/15/24 11/15/24 capsule,extended release Allergies Allergy/AdvReac Type Severity Reaction Status Date / Time amoxicillin Allergy Unknown Verified 06/29/24 09:31 Worker's Comp Is this a Worker's Comp case?: No [facility] Disclaimer: The information contained in this section may have been updated after the patient was seen, as this information can be updated by other users. Medical History (Updated 11/15/24 @ 09:48 by Joy Dailey APRN) LVH (left ventricular hypertrophy) Biatrial enlargement Diabetes mellitus Current use of supervisor intermediates anticoagulation H/O nephrolithotomy with removal of calculi Sinus bradycardia PAF (paroxysmal atrial fibrillation) Current use of assisted anticoagulation HBP (high blood pressure) Atrial flutter HARINI (acute kidney injury) Esophageal abnormality Social History Smoking Status: Never smoker alcohol intake: current alcohol intake frequency: a few times a week substance use type: denies use current occupational status: unemployed Travel in the last 8 weeks: Inside the [place] household members: spouse housing: house caffeine: Yes Have you lived/traveled outside [place] in past 30 days?: No Contact w/someone who lives/traveled outside US past 30 days?: No Exposure to someone with infectious disease in past 14 days?: No Do you have a fever (greater than 100.4 F or 38 C)?: No Have you tested positive for COVID-19: No Exposed to someone with COVID-19 in past 14 days?: No Do you have a sore throat?: No Do you have a cough?: No Do you have any weakness?: No Do you have any diarrhea?: No Are you experiencing any unusual bleeding?: No Do you have any muscle aches/pain?: No Do you have any abdominal pain?: No Are you experiencing loss of taste or smell?: No ROS Obtained: Yes All systems reviewed & no additional complaints except as documented and Yes Systems reviewed as appropriate & no additional complaints except as documented Constitutional Constitutional: Reports system reviewed and no additional complaints, except as documented and Reports as per HPI ENT Ears, Nose, Mouth, and Throat: Reports system reviewed and no additional complaints, except as documented and Reports as per HPI Cardiovascular Cardiovascular: Reports system reviewed and no additional complaints, except as documented and Reports as per HPI Respiratory Respiratory: Reports system reviewed and no additional complaints, except as documented and Reports as per HPI Gastrointestinal Gastrointestingal: Reports system reviewed and no additional complaints, except as documented and as per HPI Genitourinary Male Genitourinary: Reports system reviewed and no additional complaints, except as documented and Reports as per HPI Musculoskeletal Musculoskeletal: Reports system reviewed and no additional complaints, except as documented and Reports as per HPI Integumentary/Breasts Skin/Breast: Reports system reviewed and no additional complaints, except as documented, Reports as per HPI, Reports pruritus and Reports rash Physical Exam General General appearance: alert and in no apparent distress Eye Eye exam: Present normal appearance, PERRL and EOMI ENT ENT exam: Present normal exam, normal oropharynx, mucous membranes moist and TM's normal bilaterally Respiratory Respiratory exam: Present normal lung sounds bilaterally; Absent respiratory distress or wheezes Cardiovascular Cardiovascular exam: Present regular rate, normal rhythm and normal heart sounds Neurological Exam Neurological exam: Present alert, oriented X3 and normal gait Skin Skin exam: Present rash (red itchy rash on right cheek area ) Medical Decision Making Medical Records Screening: Per USPSTF and CDC recommendations, given the prevalence of disease in our region, it is our hospital?s policy to screen for HIV and viral Hepatitis for all patients aged 18 and over and those with ongoing risk factors. Sean Inquiry Pt receiving controlled substance: No Sean was queried for this patient: No Vital Signs: 11/15/24 09:25 Temperature 98.3 F Temperature Source Oral Pulse Rate [Left Brachial] 67 Respiratory Rate 18 Blood Pressure [Left Arm] 156/88 H Blood Pressure Mean [Left Arm] 110 Blood Pressure Source [Left Arm] Automatic Cuff Blood Pressure Position [Left Arm] Sitting 02 Sat by Pulse Oximetry 99 Oxygen Delivery Method Room Air
[2024-11-15] MEDS: METHYLPREDNISOLONE SOD SUCC 125MG VIAL 125 MG IM (09:49)
[2024-11-15 10:00] VITALS: BP 156/88; PULSE 67; RESP 18; TEMP 36.8; O2SAT 99
== END 2024-11-15 10:04 | disposition home or self-care (01) ==
PROVIDERS: Emergency Provider Nurse Practitioner; PCP Family Medicine
DX: R21 Rash and other nonspecific skin eruption (principal)
CPT/HCPCS: 96372; 99213; G0381; J2919

== ENCOUNTER 2024-11-23 13:00 | Emergency (ER) | payer OTHER, SELFPAY ==
[2024-11-23 14:15] VITALS: BP 159/96; PULSE 81; RESP 20; TEMP 36.8; O2SAT 97; BMI 22.6
--- NOTE | 2024-11-23 14:17 | EXP.UTC ---
Discharge Plan Disposition Patient Disposition: Home, Self-Care Condition: Good Prescriptions Prescriptions: New benzonatate 100 mg capsule 100 mg PO TIDP PRN (Reason: Cough) Qty: 30 0RF cefdinir 300 mg capsule 300 mg PO BID Qty: 20 0RF No Action potassium chloride 10 mEq capsule, extended release 10 meq PO DAILY Patient Comments: TAKE 1 CAPSULE BY MOUTH ONCE DAILY metoprolol succinate 100 mg tablet extended release 24 hr 100 mg PO DAILY Patient Comments: TAKE 1 TABLET BY MOUTH ONCE DAILY amlodipine 5 mg tablet 5 mg PO DAILY Patient Comments: TAKE 1 TABLET BY MOUTH ONCE DAILY pantoprazole 40 mg tablet,delayed release (DR/EC) 40 mg PO DAILY Patient Comments: TAKE 1 TABLET BY MOUTH ONCE DAILY lisinopril-hydrochlorothiazide 10-12.5 mg tablet 1 tab PO DAILY Patient Comments: TAKE 1 TABLET BY MOUTH ONCE DAILY insulin glargine [Basaglar KwikPen U-100 Insulin] 100 unit/mL (3 mL) insulin pen See Rx Instructions .ROUTE .COMPLEX Rx Instructions: . Eliquis 2.5 mg tablet 2.5 mg PO DAILY Referrals Follow up/Referrals: Bal Heard MD [Primary Care Provider] - See instructions Activity Restrictions/Add. Instructions Additional Instructions/Restrictions: Drink plenty of fluids. Take tylenol or ibuprofen for pain or fever. Take the medications as directed. Follow up with your regular doctor. GO TO THE ER FOR ANY WORSENING SYMPTOMS Clinical Impressions Clinical Impression: Exposure to 2019 novel coronavirus Instructions Patient Instructions: DI for COVID-19 (Suspected or Confirmed ), COVID-19 Print Language Print Language: Uzbek Discharge ED Provider: Shane Henderson [facility] [place] HPI General Stated complaint: cough, sneezing. Covid exposure Mode of Arrival: Ambulatory Source of Information: Patient Time Seen by Provider: 11/23/24 14:17 Description of Symptoms (Recalled from Triage Doc. by RN): EXP TO COVID HEENT Symptoms (Recalled from RN notes): No Resp Symptoms (Recalled from RN notes): Yes Skin Symptoms (Recalled from RN notes): No MS Symptoms (Recalled from RN notes): No Functional Status (Recalled from RN notes): WNL Related Data Home Medications ?Medication ?Instructions ?Recorded ?Confirmed amlodipine 5 mg tablet 5 mg PO DAILY 11/15/24 11/15/24 apixaban 2.5 mg tablet (Eliquis) 2.5 mg PO DAILY 11/15/24 11/15/24 insulin glargine 100 unit/mL (3 See Rx Instructions .Route .COMPLEX 11/15/24 11/15/24 mL) subcutaneous pen (Basaglar KwikPen U-100 Insulin) lisinopril 10 1 tab PO DAILY 11/15/24 11/15/24 mg-hydrochlorothiazide 12.5 mg tablet metoprolol succinate 100 mg 100 mg PO DAILY 11/15/24 11/15/24 tablet,extended release 24 hr pantoprazole 40 mg tablet,delayed 40 mg PO DAILY 11/15/24 11/15/24 release potassium chloride 10 mEq 10 meq PO DAILY 11/15/24 11/15/24 capsule,extended release Previous Rx's ?Medication ?Instructions ?Recorded benzonatate 100 mg capsule 100 mg PO TIDP PRN Cough #30 caps 11/23/24 cefdinir 300 mg capsule 300 mg PO BID #20 caps 11/23/24 Allergies Allergy/AdvReac Type Severity Reaction Status Date / Time amoxicillin Allergy Unknown Verified 06/29/24 09:31 Worker's Comp Is this a Worker's Comp case?: No [facility] Disclaimer: The information contained in this section may have been updated after the patient was seen, as this information can be updated by other users. 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 HBP (high blood pressure) Atrial flutter HARINI (acute kidney injury) Esophageal abnormality Social History Smoking Status: Never smoker alcohol intake: current alcohol intake frequency: a few times a week substance use type: denies use current occupational status: unemployed Travel in the last 8 weeks: [place] the [place] household members: spouse housing: house caffeine: Yes Have you lived/traveled outside US in past 30 days?: No Contact w/someone who lives/traveled outside [place] past 30 days?: No Exposure to someone with infectious disease in past 14 days?: No Do you have a fever (greater than 100.4 F or 38 C)?: No Have you tested positive for COVID-19: No Exposed to someone with COVID-19 in past 14 days?: Yes Do you have a sore throat?: No Do you have a cough?: Yes Do you have any weakness?: No Do you have any diarrhea?: No Are you experiencing any unusual bleeding?: No Do you have any muscle aches/pain?: No Do you have any abdominal pain?: No Are you experiencing loss of taste or smell?: No ROS Obtained: Yes All systems reviewed & no additional complaints except as documented Constitutional Constitutional: Denies chills and Denies fever(s) Eyes Eyes: Denies eye discharge ENT Ears, Nose, Mouth, and Throat: Denies dizziness, Denies otalgia and Denies sore throat Cardiovascular Cardiovascular: Denies chest pain Respiratory Respiratory: Denies shortness of breath, Denies chest congestion, Denies cough, Denies stridor and Denies wheezing Gastrointestinal Gastrointestingal: Denies nausea or vomiting Musculoskeletal Musculoskeletal: Reports system reviewed and no additional complaints, except as documented and Denies arthralgias Integumentary/Breasts Skin/Breast: Denies rash Neurologic Neurologic: Denies dizziness and Denies paresthesias Allergic/Immunologic Allergic/Immunologic: Denies wheezing Physical Exam General General appearance: alert and in no apparent distress Head Head exam: atraumatic, normocephalic and normal inspection Eye Eye exam: Present normal appearance, PERRL and EOMI ENT ENT exam: Present normal exam, normal oropharynx, mucous membranes moist, TM's normal bilaterally and normal external ear exam Neck Neck exam: Present normal inspection, full ROM and trachea midline; Absent meningismus or lymphadenopathy Chest Chest inspection: Present normal inspection and symmetric chest wall rise; Absent tenderness Respiratory Respiratory exam: Present normal lung sounds bilaterally; Absent respiratory distress Cardiovascular Cardiovascular exam: Present regular rate and normal rhythm; Absent JVD Abdominal Exam Abdominal exam: Present soft and normal bowel sounds; Absent distention, tenderness or guarding Extremities Exam Extremities exam: Present normal inspection, full ROM and normal capillary refill; Absent calf tenderness Back Exam Back exam: Present normal inspection; Absent tenderness Neurological Exam Neurological exam: Present alert and oriented X3 Psychiatric Psychiatric exam: Present normal affect and normal mood Skin Skin exam: Present warm, dry, intact and normal color Lymphatic Lymphatic Findings: no adenopathy Medical Decision Making Medical Records Medical records reviewed: No I reviewed the patient's medical records. Screening: Per USPSTF and CDC recommendations, given the prevalence of disease in our region, it is our hospital?s policy to screen for HIV and viral Hepatitis for all patients aged 18 and over and those with ongoing risk factors. Sean Inquiry Pt receiving controlled substance: No Vital Signs: 11/23/24 14:15 Temperature 98.3 F Temperature Source Oral Pulse Rate [Left Brachial] 81 Respiratory Rate 20 Blood Pressure [Left Arm] 159/96 H Blood Pressure Mean [Left Arm] 117 02 Sat by Pulse Oximetry 97 Orders (Tests/Meds): ORDERS Category Date Time Status Rapid PCR Covid and Flu A/B Stat Lab 11/23/24 14:07 Received
[2024-11-23 14:18] LABS: Influenza A, PCR Not Detected (NotDetected); Influenza B, PCR Not Detected (NotDetected)
[2024-11-23 14:46] VITALS: BP 159/96; PULSE 81; RESP 20; TEMP 36.8
[2024-11-23 19:10] LABS: Coronavirus 19, PCR Detected (NotDetected)
== END 2024-11-23 14:50 | disposition home or self-care (01) ==
PROVIDERS: Emergency Provider Nurse Practitioner Family; PCP Family Medicine
DX: R05.9 Cough, unspecified (principal); R06.7 Sneezing; Z20.822 Contact with and (suspected) exposure to COVID-19
CPT/HCPCS: 87636; 99212; G0381

== ENCOUNTER 2024-12-11 11:10 | Outpatient (CLI) | payer OTHER, SELFPAY ==
[2024-12-11 11:50] LABS: Albumin Level 4.5 g/dl (3.5-5.0); Chloride 103 mmol/L (98-107); Potassium 3.7 mmoL/L (3.5-5.1); Sodium 137 mmol/L (136-145)
[2024-12-11 11:52] LABS: Alanine Aminotransferase 40 U/L (12-78); Anion Gap 10.7 mEq/L (5-15); Aspartate Amino Transferase 32 U/L (17-59); Blood Urea Nitrogen 18 mg/dl (9-20); Carbon Dioxide 27 mmol/L (22.0-30.0); Estimated Glomerular Filt Rate 85 ml/min (>60); GFR (African American) 103 ML/MIN (>60)
[2024-12-11 11:53] LABS: Albumin/Globulin Ratio 1.8 (1.1-1.8); Alkaline Phosphatase 87 U/L (38-126); Bilirubin,Total 0.7 mg/dl (0.2-1.3); Calcium 9.6 mg/dl (8.4-10.2); Chol/HDL Ratio 5.1 (1-3.5); Cholesterol 143 mg/dl (140-200); Globulin 2.5 g/dL (1.3-3.2); Glucose 146 mg/dl (74-100); HDL Cholesterol 28 mg/dl (40-60); Triglycerides 234 mg/dl (30-150); VLDL Cholesterol 47 mg/dL (0-40)
[2024-12-11 11:56] LABS: Hemoglobin A1C 8.4 % (4.0-6.0)
[2024-12-11 12:04] LABS: Direct LDL Cholesterol 54.16 mg/dL (100-129)
== END 2024-12-11 23:59 | disposition home or self-care (01) ==
LOC: LABREF 11:11
PROVIDERS: PCP Family Medicine; Visit Provider Family Medicine
DX: E11.9 Type 2 diabetes mellitus without complications (principal); E78.5 Hyperlipidemia, unspecified
CPT/HCPCS: 36415; 80053; 80061; 83036

== ENCOUNTER 2025-01-31 10:29 | Outpatient (CLI) | payer MEDICARE, SELFPAY ==
[2025-01-31 12:16] LABS: Prostate Specific Ag Screen < 0.1 ng/ml (0.0-4.0)
== END 2025-01-31 23:59 | disposition home or self-care (01) ==
LOC: LAB 10:30
PROVIDERS: PCP Family Medicine; Visit Provider Radiology Radiation Oncology
DX: C61 Malignant neoplasm of prostate (principal)
CPT/HCPCS: 36415; G0103

== ENCOUNTER 2025-09-24 22:31 | Emergency (ER) | payer MEDICARE, SELFPAY ==
--- OUTSIDE RECORDS SUMMARY | 2024-04-06 10:45 | XMS_ITS ---
[facility] Address [address] [place] [id number] Care Team Providers Care Business Technology Teacher Name Role Phone Nicholas Heard Primary Care Provider Allergies Allergen (clinical drug ingredient) Drug/Non Drug Allergy documented on EMR Reaction Allergy Type Onset Date Status amoxicillin Amoxicillin rash, itchy Drug Allergy A ctive REASON FOR VISIT hurt his back Medications Medication SIG (Take, Route, Frequency, Duration) Notes Start Date End Date Status Cyclobenzaprine HCl 10 MG 1 tab(s) Orally Three times a day 04/06/2024 Active Accu-Chek Guide - as directed test three times per day and as needed 06/16/2023 Active Lisinopril-hydroCHLO ROthiazide 10-12.5 MG 1 tab(s) orally once a day; Duration: 90 days Active Potassium Chloride ER 10 MEQ 1 cap(s) orally once daily; Duration: 90 days Active Pantoprazole Sodium 40 MG 1 tab(s) orally once a day; Duration: 90 days Active SOFTCLIX LANCETS - SUBCUTANEOUSLY TWO TIMES A DAY; Duration: 100 DAYS 07/29/2022 Active Blood Glucose Monitor System w/Device as directed 06/12/2023 Active ACCUCHECK GLUCOMETER 1 AC AND HS; Duration: 30 DAYS 12/19/2021 Active ACCUCHECK TEST STRIPS DIRECTED ONCE DAILY 03/18/2022 Active Accu-Chek Softclix Lancets - as directed test three times per day and as needed 06/16/2023 Active CPAP SUPPLIES DIRECTED 08/08/2020 Act alfredo Lancets 1 LANCET FINGERSTICK TEST 2 TIMES A DAY OR DIRECTED; Duration: 30 DAYS 06/01/2014 Active Metoprolol Succinate ER 100 MG 1 tab(s) orally once a day; Duration: 90 days Active CareTouch CPAP & BIPAP Hose 1 DIRECTED 6-15 settings *Please review and pick correct strength-formula tion from [employer] options. If intended option is not shown, discontinue and re-order from Quick Search* 10/10/2022 Not-Taking Eliquis 2.5 MG Take 1 tablet by mouth twice daily Orally Twice a day Active Basaglar KwikPen 100 UNIT/ML INJECT 43 UNITS SUBCUTANEOUSLY ONCE DAILY AT BEDTIME; Duration: 42 days Active amLODIPine Besylate 5 MG 1 tab(s) orally once a day; Duration: 90 days Active Vital Signs Blood pressure systolic 142 mm Hg 04/06/20 24 Blood pressure diastolic 88 mm Hg 024 Heart Rate 60 /min 04/06/2024 Height 71 in 04/06/2024 Weight 253 lbs 04/06/2024 BMI 35.28 kg/m2 04/06/2024 Encounters Encounter Location Date Provider Diagnosis [facility] [address] [facility] [place] [address] [facility] [address] [place] [id number] 04/06/2024 Nicholas Heard Low back strain, initial encounter S39.012A Assessments Encounter Date Diagnosis (ICD Code) Assessment Notes Treatment Notes Treatment Clinical Notes Section Notes 04/06/2024 Low back strain, initial encounter (ICD-10 - S39.012A) Alternate heat and ice. Gentle stretching exercises Plan Of Treatment Medication Medication Name Sig Start Date Stop Date Notes Cyclobenzaprine HCl 10 MG 1 tab(s) Orall y Three times a day 04/06/2024 Treatment Notes Assessment Notes Low back strain, initial encounter Alter feliberto heat and ice. Gentle stretching exercises Next Appt Details Follow Up: 1 Week, prn, Reas on: Provider Name:Nicholas Ho, 12/13/2025 09:00:00 AM, [address] [facility] [address] [facility], [address], [place], [id number], Medications Administered Medication Instructions Date of Administration Dosage Notes Depo- Medrol 40 mg/ml 04/06/2024 1.5 mL Progress Notes * TIFFANIE ISBELL:1960 ( 65 yo M)Acc No.[id number]:04/06/2024 Progress Notes Patient: MURTAZA DEGROOT Provider: Nicholas Heard M.D. :1960 A ge:63 Y S ex:Male Date:04/06/2024 Address:[address] [place], [place] [address], [id number] Subjective: * Chief Complaints: * 1 . Hurt his back. * HPI: L ower back: Murtaza Truong is wing most of the day last Friday and the following morning woke up with pain and spasm across his lower back. He has tried conservative measures at home with no improvement. He sometimes gets in certain positions and his back will lock up . No radicular symptoms. He does feel some discomfort radiating around to the lower abdomen bilaterally. * ROS: C ARDIOLOGY: no C hest pain. n o P alpitations. n o S hortness of breath. G ASTROENTEROLOGY: no N ausea. n o V omiting. n o D iarrhea.? U ROLOGY: no D ifficulty urinating. n o B lood in urine. 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 * Surgical History: c arpal tunnel both hands , esophageal dilitation , prostatectomy/ Dr. Sheriff 03/2020, open procedure to remove kidney stone 2021. * Hospitalization/Major Diagno stic Procedure: H ER-hurt right knee while in training 11/04/11. * Family History: F ather: , alcoholic and liver issues. M other: , CHF. 3 son(s) . .? * Social History: C URRENT TOBACCO USE S moking Status: Patient does NOT smoke. C affeine: no. Home smoke detector use: yes. Marital Status: . Past smoking status: no. Alcohol: Yes, Type: beer , Frequency: very infrequent ,Years: , Determination:. * Medications: T aking Eliquis 2.5 MG Tablet Take 1 tablet by mouth twice daily Orally Twice a day , Taking CPAP SUPPLIES DIRECTED , Taking Lancets 1 LANCET FINGERSTICK TEST 2 TIMES A DAY OR DIRECTED , Taking ACCUCHECK GLUCOMETER 1 AC AND HS , Taking ACCUCHECK TEST STRIPS DIRECTED ONCE DAILY , Taking SOFTCLIX LANCETS - SUBCUTANEOUSLY TWO TIMES A DAY , Taking Blood Glucose Monitor System w/Device Kit as directed , Taking Accu-Chek Softclix Lancets - Miscellaneous as directed test three times per day and as needed , Taking Accu-Chek Guide - Strip as directed test three times per day and as needed , Taking Lisinopril-hydroCHLOROthiazide 10-12.5 MG Tablet 1 tab(s) orally once a day , Taking Potassium Chloride ER 10 MEQ Capsule Extended Release 1 cap(s) orally once daily , Taking Pantoprazole Sodium 40 MG Tablet Delayed Release 1 tab(s) orally once a day , Taking Basaglar KwikPen 100 UNIT/ML Solution Pen-injector INJECT 43 UNITS SUBCUTANEOUSLY ONCE DAILY AT BEDTIME , Taking amLODIPine Besylate 5 MG Tablet 1 tab(s) orally once a day , Taking Metoprolol Succinate ER 100 MG Tablet Extended Release 24 Hour 1 tab(s) orally once a day , Not-Taking CareTouch CPAP & BIPAP Hose MACHINE AND SUPPLIES 1 DIRECTED , Notes to Pharmacist: 6-15 settings *Please review and pick correct strength-formulation from [employer]pan options. If intended option is not shown, discontinue and re-order from Quick Search*, Medication List reviewed and reconciled with the patient * Allergies: A moxicillin: rash, itchy - Allergy. Objective: * Vitals: W t:253, Temp:97.9, BP:142/88, HR:60, Nurse:MARITZA, Ht: 71, BMI:35.28. * Examination: Doris kilgoreer back: Go messer appears in no distress at rest. He moves slowly from chair to standing position with apparent pain in his back. He has difficulty standing fully erect. There is decrease in the normal lumbar lordosis. There is tenderness and spasm along the lumbar paraspinal muscles. Strength in lower extremities is normal. He ambulates using a straight cane with an antalgic gait. Assessment: * Assessment: 1. L ow back strain, initial encounter - S39.012A (Primary) Plan: * Treatment: * Therapeutic Injections: Depo- Medrol 40 mg/ml : 1.5 mL (Route: Intramuscular) given by Sigrid Rey on right gluteus (Low back strain, initial encounter) * Procedure Codes: J 1010 Depo- Medrol 40 mg/ml, Units: 1.50 , 23342 ADMINISTRATION OF INJECTION * Follow Up: 1 Week, prn * Images: Billing Information: * Visit Code: 29831 Office Visit, Est Pt., Level 3. * Procedure Codes: J1010 Depo- Medrol 40 mg/ml. Units: 1.50. 24859 ADMINISTRATION OF INJECTION. * Electronic signature of Nicholas Heard MD on 09/24/2025 at 11:02 PM EDT Sign off status: Pending * Provider: Nicholas Heard M.D. Date: 0 04/06/2024 Generated for Gunjan santos/Matty/Ladismitting on: 1 11:02 PM EDT History and Physical Notes * Examination Category Sub-Category Detail Notes Category Not es Lower back He appears in n o distress at rest. He moves slowly from chair to standing position with apparent pain in his back. He has difficulty standing fully erect. There is decrease in the normal lumbar lordosis. There is tenderness and spasm along the lumbar paraspinal muscles. Strength in lower extremities is normal. He ambulates using a straight cane with an antalgic gait.
--- OUTSIDE RECORDS SUMMARY | 2024-05-31 12:15 | XMS_ITS ---
[facility] [address] [facility] [address] [place] [id number] Care Team Providers Care Box Office Attendant Name Role Phone Nicholas Heard Primary Care Provider Jc Grullon Unavailable [phone] Allergies Allergen (clinical drug ingredient) Drug/Non Drug Allergy documented on EMR Reaction Allergy Type Onset Date Status amoxicillin Amoxicillin rash, itchy Drug Allergy A ctive Reason For Referral Reason [facility] Diagnosis 1 Acute left-sided low back pain without sciatica (M54.50) [facility] Referring Provider First Name Jc Referring Provider Last Name Mitchel Referring Provider Speciality Family Pra ctice Referred Provider Physical Therapy, . Referred Provider Specialty Physical The rapist General Notes Yisel Roy 9:09:09 AM > [facility] 06/07/2024 at 08:00am; lvm for pt to call back to give him appt timeManuela Brynn 06/01/2024 12:02:30 PM > pt informed; referral faxed Referral Priority Routine REASON FOR VISIT f/u ER Medications Medication SIG (Take, Route, Frequency, Duration) Notes Start Date End Date Status Metoprolol Succinate ER 100 MG 1 tab(s) orally once a day; Duration: 90 days Active Cyclobenzaprine HCl 5 MG 1 tablet as nee ded Orally Three times a day 05/31/2024 Active amLODIPine Besylate 5 MG 1 tab(s) orally once a day; Duration: 90 days Active Basaglar KwikPen 100 UNIT/ML INJECT 43 UNITS SUBCUTANEOUSLY ONCE DAILY AT BEDTIME; Duration: 42 days Active Accu-Chek Softclix Lancets - as directed test three times per day and as needed 06/16/2023 Active Lisinopril-hydroCHLOROthiaz johanne 10-12.5 MG 1 tab(s) orally once a day; Duration: 90 days Active Accu-Chek Guide - as directed test thr ee times per day and as needed 06/16/2023 Active Pantoprazole Sodium 40 MG 1 tab(s) orall y once a day; Duration: 90 days Active Potassium Chloride ER 10 MEQ 1 cap(s) orally once daily; Duration: 90 days Active CPAP SUPPLIES DIRECTED 08/08/2020 Act alfredo Eliquis 2.5 MG Take 1 tablet by blademar th twice daily Orally Twice a day Active Blood Glucose Monitor System w/Device as directed 06/12/2023 Active Vital Signs Blood pressure systolic 148 mm Hg 05/31/20 24 Blood pressure diastolic 90 mm Hg 024 Heart Rate 93 /min 05/31/2024 Height 71 in 05/31/2024 Weight 254 lbs 05/31/2024 BMI 35.42 kg/m2 05/31/2024 Encounters Encounter Location Date Provider Diagnosis [facility] [address] [facility] [address] [place] [id number] 05/31/2024 Jc Grullon Acute left-sided low back pain without sciatica M54.50 and Muscle spasm of back M62.830 Assessments Encounter Date Diagnosis (ICD Code) Assessment Notes Treatment Notes Treatment Clinical Notes Section Notes 05/31/2024 Acute left-sided low back pain without sciatica (ICD-10 - M54.50) 05/31/2024 Muscle spasm of back (ICD-10 - M62.830) Plan Of Treatment Medication Medication Name Sig Start Date Stop Date Notes Cyclobenzaprine HCl 5 MG 1 tablet as nee ded Orally Three times a day 05/31/2024 Methocarbamol 750 MG 1 tablet Orally every 4 hrs Referrals Referral Date Details 05/31/2024 05/31/2024, CONNIE, Edwige P hysical Therapy Next Appt Details Follow Up: as scheduled,and prn, Reason: Provider Name:Nicholas Ho, 12/13/2025 09:00:00 AM, [address] [facility], [address], [place], [place], [id number], Progress Notes * MURTAZA ISBELLDOB:1960 ( 65 yo M)Acc No.[id number]:05/31/2024 Patient: MURTAZA DEGROOT Provider: Marco Antonio Grullon M.D. :1960 A ge:64 Y S ex:Male Date:05/31/2024 Address:[address] [place], [place] [address], [id number] Pcp:Nicholas Heard Subjective: * Chief Complaints: * 1 . f/u ER. * HPI: H PI: 64 year old male presents with c/o Here for follow up on: 0 05/26/2024 [facility] ER visit, see printed and pt docs. Pt went to er for lt side flank pain, pt states he was given Lidocaine Patch and muscle relaxer but has not had any relief. Pt was told that he has a muscle tear and was advised to see PCP for PT order. * ROS: D ERMATOLOGY: no R sydney. n o H ralyn. G ASTROENTEROLOGY: no N ausea. n o V omiting. U ROLOGY: no D ifficulty urinating. n o B lood in urine. * Medical History: H ypertension, Type 2 DM , MAZIN, White coat syndrome, Prostate cancer - diagnose 01/2020, [place] palsy - 10/2021, Rapid atrial flutter - [...] ,Years: , Determination:. * Medications: T aking Methocarbamol 750 MG Tablet 1 tablet Orally every 4 hrs , Taking Eliquis 2.5 MG Tablet Take 1 tablet by mouth twice daily Orally Twice a day , Taking CPAP SUPPLIES DIRECTED , Taking Blood Glucose Monitor System w/Device [...] 1 tab(s) orally once a day , Discontinued Cyclobenzaprine HCl 10 MG Tablet 1 tab(s) Orally Three times a day , Medication List reviewed and reconciled with the patient * Allergies: A moxicillin: rash, itchy - Allergy. Objective: * Vitals: W t:254, Temp:98.0, BP:148/90, HR:93, Nurse:leatha, Ht: 71, BMI:35.42. * Examination: G eneral Examination: General Appearance: N AD. L ower back: Palpation: n o vertebral spine tenderness, left lower lumbar paraspinal spasms. G ait: stands and moves slowly due to pain, uses a c ane. ? Assessment: * Assessment: 1. A cute left-sided low back pain without sciatica - M54.50 (Primary) 2 . M uscle spasm of back - M62.830 Plan: * Treatment: 2. M uscle spasm of back Stop Methocarbamol Tablet, 750 MG, 1 tablet, Orally, every 4 hrs; S tart Cyclobenzaprine HCl Tablet, 5 MG, 1 tablet as needed, Orally, Three times a day, 30, Refills 0. * Follow Up: a s scheduled,and prn * Images: Billing Information: * Visit Code: 49275 Office Visit, Est Pt., Level 3. * Procedure Codes: * Electronic signature of Debra Grullon MD on 09/24/2025 at 11:03 PM EDT Sign off status: Pending * Provider: Marco Antonio Grullon M.D. Date: 0 05/31/2024 Generated for Printi ng/Alirezag/eTransmitting on: 1 11:03 PM EDT History and Physical Notes * HPI (History of Present Illness) Category Sub-Category Detail Notes Category Not es HPI Here for follow up on: 4 [facility] ER visit, see printed and pt docs. Pt went to er for lt side flank pain, pt states he was given Lidocaine Patch and muscle relaxer but has not had any relief. Pt was told that he has a muscle tear and was advised to see PCP for PT order Examination Category Sub-Category Detail Notes Category Not es General Examination General Appearance: NAD Lower back Gait: stands and moves slowly due to pain, uses a cane Palpation: no vertebral spine t enderness, left lower lumbar paraspinal spasms Consultation Request Notes Referral Date Referring Provider Referred Provider Not es 05/31/2024 Jc Grullon Physical Therapy, . [facility]
--- OUTSIDE RECORDS SUMMARY | 2024-06-10 05:15 | XMS_ITS ---
[facility] Address [address] [place] [id number] Care Team Providers Care Youth [employer] Director Name Role Phone Nicholas Heard Primary Care Provider [phone] Allergies Allergen (clinical drug ingredient) Drug/Non Drug Allergy documented on EMR Reaction Allergy Type Onset Date Status amoxicillin Amoxicillin rash, itchy Drug Allergy A ctive Results Component Value Reference Range Notes Glycohemoglobin A1c (in hous e) Reviewed date:06/10/2024 09:37:58 AM Interpretation:7.9% Performing Lab: Notes/Report: 7.9% glycohemoglobin 7.9% 5 - 6.5 % REASON FOR VISIT 6 months, Needs labs, diabetic eye exam, Tdap, & shingles vaccine Medications Medication SIG (Take, Route, Frequency, Duration) Notes Start Date End Date Status Potassium Chloride ER 10 MEQ 1 cap(s) orally once daily Active amLODIPine Besylate 5 MG 1 tab(s) orally once a day Active CPAP SUPPLIES DIRECTED 08/08/2020 Act alfredo Lisinopril-hydroCHLOROthiaz johanne 10-12.5 MG 1 tab(s) orally once a day Active Basaglar KwikPen 100 UNIT/ML inject 45 units subcutaneously at bedtime Active Lisinopril-hydroCHLOROthiaz johanne 10-12.5 MG 1 tab(s) orally once a day; Duration: 90 days Active Cyclobenzaprine HCl 5 MG 1 tablet as nee ded Orally Three times a day 05/31/2024 Active Basaglar KwikPen 100 UNIT/ML INJECT 45 UNITS SUBCUTANEOUSLY ONCE DAILY AT BEDTIME Active Metoprolol Succinate ER 100 MG 1 tab(s) orally once a day Active Eliquis 2.5 MG Take 1 tablet by baldemar th twice daily Orally Twice a day Active Pantoprazole Sodium 40 MG 1 tab(s) orall y once a day; Duration: 90 days Active Potassium Chloride ER 10 MEQ 1 cap(s) orally once daily; Duration: 90 days Active Metoprolol Succinate ER 100 MG 1 tab(s) orally once a day; Duration: 90 days Active amLODIPine Besylate 5 MG 1 tab(s) orally once a day; Duration: 90 days Active Accu-Chek Guide - as directed test thr ee times per day and as needed 06/16/2023 Active Accu-Chek Softclix Lancets - as directed test three times per day and as needed 06/16/2023 Active Blood Glucose Monitor System w/Device as directed 06/12/2023 Active Vital Signs Blood pressure systolic 150 mm Hg 06/10/20 24 Blood pressure diastolic 90 mm Hg 024 Heart Rate 70 /min 06/10/2024 Height 71 in 06/10/2024 Weight 256.8 lbs 06/10/2024 BMI 35.81 kg/m2 06/10/2024 Encounters Encounter Location Date Provider Diagnosis [facility] [address] [id number] 06/10/2024 Nicholas Heard Type 2 diabetes mellitus without complications E11.9 ; Hypertension I10 ; 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 Again instructed on titrating his insulin dose and reinforced diet and weight loss. 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) use of insulin (ICD-10 - Z79.4) 06/10/2024 Dyslipidemia (ICD-10 - E78.5) 06/10/2024 Sleep apnea, unspecified type (ICD-10 - G47.30) 06/10/2024 Atrial flutter with rapid ventricular response (ICD-10 - I48.92) 06/10/2024 Prostate cancer (ICD-10 - C61) 06/10/2024 Cervical disc disease (ICD-10 - M50.90) Plan Of Treatment Medication Medication Name Sig Start Date Stop Date Notes Potassium Chloride ER 10 MEQ 1 cap(s) orally once daily amLODIPine Besylate 5 MG 1 tab(s) orally once a day Lisinopril-hydroCHLOROthiaz johanne 10-12.5 MG 1 tab(s) orally once a day Basaglar KwikPen 100 UNIT/ML inject 45 units subcutaneously at bedtime Metoprolol Succinate ER 100 MG 1 tab(s) orally once a day Eliquis 2.5 MG Take 1 tablet by twice daily Orally Twice a day Treatment Notes Assessment Notes Type 2 diabetes mellitus wit hout complications A1c is marginally improved but not at goal. Again instructed on titrating his insulin dose and reinforced diet and weight loss. Next Appt Details Follow Up: 6 Months, Reason: Provider Name:Nicholas Ho, 12/13/2025 09:00:00 AM, [address] [facility], [address], [place], [place], [phone], Progress Notes * MURTAZA ISBLELDOB:1960 ( 65 yo M)Acc No.[id number]:06/10/2024 Progress Notes Patient: MURTAZA DEGROOT Provider: Nicholas Heard M.D. :1960 A ge:64 Y S ex:Male Date:06/10/2024 Address:[address] [place] [address], [facility], [id number] Subjective: * Chief Complaints: * 1 . 6 months. 2. Needs labs, diabetic eye exam, Tdap, & shingles vaccine. * HPI: E ndocrinology: He returns for scheduled checkup and refills. Interim history reviewed. He is not always compliant with his diet. He has not been titrating his insulin dose. He was in the ER recently for back pain and had blood work but did not include an A1c. Please refer to copies in chart. C ardiology: States he monitors his blood pressure at home and reports consistently normal readings. He he endorses a history of whitecoat syndrome. Denies : Chest Pain. D enies : Short of Breath. D enies : Palpitations. D enies : Leg Edema. * ROS: D ERMATOLOGY: no R sydney. n o H arlyn. G ASTROENTEROLOGY: no N ausea. n o V omiting. U ROLOGY: no D ifficulty urinating. n o B lood in urine. 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, Rapid atrial flutter - [...] per day and as needed , Taking Potassium Chloride ER 10 MEQ Capsule Extended Release 1 cap(s) orally once daily , Taking Pantoprazole Sodium 40 MG Tablet Delayed Release 1 tab(s) orally once a day , Taking amLODIPine Besylate 5 MG Tablet 1 tab(s) orally once a day , Taking Metoprolol Succinate ER 100 MG Tablet Extended Release 24 Hour 1 tab(s) orally once a day , Taking Cyclobenzaprine HCl 5 MG Tablet 1 tablet as needed Orally Three times a day , Taking Lisinopril- hydroCHLOROthiazide 10-12.5 MG Tablet 1 tab(s) orally once a day , Taking Basaglar KwikPen 100 UNIT/ML Solution Pen-injector INJECT 45 UNITS SUBCUTANEOUSLY ONCE DAILY AT BEDTIME , Medication List reviewed and reconciled with the patient * Allergies: A moxicillin: rash, itchy - Allergy. Objective: * Vitals: W t:256.8, Temp:97.6, BP:150/90, HR:70, Nurse:MARITZA, Ht: 71, BMI:35.81. * Examination: C ardiology: General Appearance: p leasant, NAD. Weight is essentially unchanged. H EENT: p tosis o f l eft eye, otherwise unremarkable. C arotid upstroke: n ormal, no bruits. H eart sounds: R RR, normal S1, S2. M urmur, click , gallop: n one. L ungs: c lear, no rales or wheezes. E xtremities: n o leg edema.? Assessment: * Assessment: 1. H ypertension - I10 (Primary) 2 . T ype 2 diabetes mellitus without complications - E11.9 3 . L geraldo term (current) use of insulin - Z79.4 ?4. D yslipidemia - E78.5 5 . S leep apnea, unspecified type - G47.30 6 . A trial flutter with rapid ventricular response - I48.92 7 .?Prostate cancer - C61 8 . C ervical disc disease - M50.90 Plan: * Treatment: 2. T ype 2 diabetes mellitus without complications Continue Basaglar KwikPen Solution Pen-injector, 100 UNIT/ML, inject 45 units subcutaneously at bedtime. L AB: Glycohemoglobin A1c (in house) (Collection Date & Time - 06/10/2024) 7 .9% Value Reference Range g lycohemoglobin 7.9% 5 - 6.5 % * Sigrid Rey 06/10/2024 9:37 :42 AM > results reviewed w/ pt in office Notes: A1c is marginally improved but not at goal. Again instructed on titrating his insulin dose and reinforced diet and weight loss.??3.?Atrial flutter with rapid ventricular response? Continue Eliquis Tablet, 2.5 MG, Take 1 tablet by mouth twice daily, Orally, Twice a day.? * Procedure Codes: 3 6416 CAPILLARY BLOOD DRAW, 42001 GLYCATED HEMOGLOBIN TEST, Modifiers: QW * Follow Up: 6 Months * Images: Billing Information: * Visit Code: 49551 Office Visit, Est Pt., Level 4. * Procedure Codes: 25852 CAPILLARY BLOOD DRAW. 76059 GLYCATED HEMOGLOBIN TEST. Modifiers: QW * Electronic signature of Nicholas Heard MD on 09/24/2025 at 11:03 PM EDT Sign off status: Pending * Provider: Nicholas Heard M.D. Date: 0 06/10/2024 Generated for Gunjan santos/Matty/Meraryitting on: 11:03 PM EDT History and Physical Notes * HPI (History of Present Illness) Category Sub-Category Detail Notes Category Not es Endocrinology He was in the ER recently for back pain and had blood work but did not include an A1c. Please refer to copies in chart. Cardiology Short of Breath Chest Pain Palpitations Leg Edema Examination Category Sub-Category Detail Notes Category Not es Cardiology Lungs: clear, no rales or wheezes HEENT: ptosis of left eye, otherwise unremarkable Heart sounds: RRR, normal S1, S2 Carotid upstroke: normal, no bruits Extremities: no leg edema Murmur, click , gallop: none General Appearance: pleasant, NAD. Weigh t is essentially unchanged
--- OUTSIDE RECORDS SUMMARY | 2024-12-09 09:45 | XMS_ITS ---
[facility] Address [address] [place] [id number] Care Team Providers Care Imaging Clerk Name Role Phone Nicholas Heard Primary Care Provider Allergies Allergen (clinical drug ingredient) Drug/Non Drug Allergy documented on EMR Reaction Allergy Type Onset Date Status amoxicillin Amoxicillin rash, itchy Drug Allergy A ctive Results Component Value Reference Range Notes H-Lipid Panel Reviewed date:12/14/2024 08:35:23 AM Interpretation:trigs 234, dldl 54, vldl 47, hdl 28, chol/hdl 5.1 Performing Lab: Notes/Report: Patient Fasting? Y TRIG 234 30-150 mg/dl CHOL 143 140-200 mg/dl DLDL 54.16 100-129 mg/dL VLDL 47 0-40 mg/dL HDL 28 40-60 mg/dl CHLHDL 5.1 1-3.5 H-CMP Reviewed date:12/14/2024 08:35:23 AM Interpretation:glu 146 Performing Lab: Notes/Report: NA 137 136-145 mmol/L K 3.7 3.5-5.1 mmoL/L CL 103 98-107 mmol/L CO2 27 22.0-30.0 mmol/L GAP 10.7 5-15 mEq/L BUN 18 9-20 mg/dl CREATT 0.90 0.66-1.25 mg/dl GFRAA 103 >60 ML/MIN EGFR 85 >60 ml/min GLU 146 74-100 mg/dl CA 9.6 8.4-10.2 mg/dl BILIT 0.7 0.2-1.3 mg/dl AST 32 17-59 U/L ALT 40 12-78 U/L TP 7.0 6.3-8.2 g/dl ALB 4.5 3.5-5.0 g/dl GLOB 2.5 1.3-3.2 g/dL AGRATIO 1.8 1.1-1.8 ALP 87 38-126 U/L H-Glycohemoglobin A1C Reviewed date:12/14/2024 08:35:23 AM Interpretation:8.4 Performing Lab: Notes/Report: HGBA1C 8.4 4.0-6.0 % < 6% Non-Diabetic Level < 7% Controlled Diabetic Level > 8% Poorly Controlled Diabetic Level REASON FOR VISIT 6 months, Needs labs with PSA, diabetic eye exam, Tdap, shingles, & flu vaccines Medications Medication SIG (Take, Route, Frequency, Duration) Notes Start Date End Date Status Lisinopril-hydroCHLOROthiaz johanne 10-12.5 MG 1 tab(s) orally once a day; Duration: 90 days Active Metoprolol Succinate ER [...] twice daily Orally Twice a day Active Metoprolol Succinate ER 100 MG 1 tab(s) orally once a day Active Pantoprazole Sodium 40 MG 1 tab(s) orall y once a day; Duration: 90 days Active Lisinopril-hydroCHLOROthiaz johanne 10-12.5 MG 1 tab(s) orally once a day Active Potassium Chloride ER 10 MEQ 1 cap(s) orally once daily; Duration: 90 days Active Basaglar KwikPen 100 UNIT/ML inject 60 units subcutaneously once daily at bedtime Subcutaneous E11.9 Active Benzonatate 100 MG 1 capsule as needed Orally Three times a day prn 12/09/2024 Active Cyclobenzaprine HCl 5 MG 1 tablet as nee ded Orally Three times a day 05/31/2024 Active Accu-Chek Guide - as directed test thr ee times per day and as needed 06/16/2023 Active Accu-Chek Softclix Lancets - as directed test three times per day and as needed 06/16/2023 Active Blood Glucose Monitor System w/Device as directed 06/12/2023 Active CPAP SUPPLIES DIRECTED 08/08/2020 Act alfredo Vital Signs Blood pressure systolic 156 mm Hg 12/09/19 25 Blood pressure diastolic 92 mm Hg 025 Heart Rate 70 /min 12/09/2024 Height 71 in 12/09/2024 Weight 255.8 lbs 12/09/2024 BMI 35.67 kg/m2 12/09/2024 Encounters Encounter Location Date Provider Diagnosis [facility] [address] 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 Again instructed on titrating his insulin dose and reinforced diet and weight loss. 12/09/2024 Hypertension (ICD-10 - I10) 12/09/2024 alf (current) use of insulin (ICD-10 - Z79.4) 12/09/2024 Dyslipidemia (ICD-10 - E78.5) 12/09/2024 Sleep apnea, unspecified type (ICD-10 - G47.30) 12/09/2024 Atrial flutter with rapid ventricular response (ICD-10 - I48.92) 12/09/2024 Prostate cancer (ICD-10 - C61) 12/09/2024 Cervical disc disease (ICD-10 - M50.90) 12/09/2024 Cough (ICD-10 - R05.9) Plan Of Treatment Medication Medication Name Sig Start Date Stop Date Notes Potassium Chloride ER 10 MEQ 1 cap(s) orally once daily amLODIPine Besylate 5 MG 1 tab(s) orally once a day Eliquis 2.5 MG Take 1 tablet by twice daily Orally Twice a day Metoprolol Succinate ER 100 MG 1 tab(s) orally once a day Lisinopril-hydroCHLOROthiazi de 10-12.5 MG 1 tab(s) orally once a day Basaglar KwikPen 100 UNIT/ML inject 60 u nits subcutaneously once daily at bedtime Subcutaneous E11.9 Benzonatate 100 MG 1 capsule as needed Orally Three times a day prn 12/09/2024 Treatment Notes Assessment Notes Type 2 diabetes mellitus wit hout complications A1c is marginally improved but not at goal. Again instructed on titrating his insulin dose and reinforced diet and weight loss. Next Appt Details Follow Up: 6 Months, Reason: Provider Name:Nicholas Ho, 12/13/2025 09:00:00 AM, [address], [address], [place], [place], [phone], Progress Notes * MURTAZA ISBELLDOB:1960 ( 65 yo M)Acc No.[id number]:12/09/2024 Progress Notes Patient: MURTAZA DEGROOT Provider: Nicholas Heard M.D. :1960 A ge:64 Y S ex:Male Date:12/09/2024 Address:[address] [place], [place] [address], [id number] Subjective: * Chief Complaints: * 1 . 6 months. 2. Needs labs with PSA, diabetic eye exam, Tdap, shingles, & flu vaccines. * HPI: E ndocrinology: Murtaza comes in for scheduled follow-up on his diabetes. He has gradually titrated his insulin dose to 60 units daily. Since then his blood sugars have been consistently less than 200. C ardiology: He continues to follow with cardiology with no change in his regimen. E NT/respiratory: c/o cough P t sts that he has had a cough for about 3 weeks. Pt sts that he was seen at [facility] and given an antibiotic and cough pill. Pt sts that he is finished w/ the abx and still has the cough pills if he needs them. Cough is now mostly dry nonproductive.. * ROS: D ERMATOLOGY: no R sydney. n o H arlyn. G ASTROENTEROLOGY: no N ausea. n o V omiting. U ROLOGY: no D ifficulty urinating. n o B lood in urine. * Medical History: H ypertension, Type 2 DM , MAZIN, White coat syndrome, Prostate cancer - diagnose 01/2020, [place] palsy - 10/2021, Rapid atrial flutter - [...] ,Years: , Determination:. * Medications: T aking CPAP SUPPLIES DIRECTED , Taking Blood Glucose Monitor System w/Device Kit as directed , Taking Accu-Chek Softclix Lancets - Miscellaneous as directed test three times per day and as needed , Taking Accu-Chek Guide - Strip as directed test three times per day and as needed , Taking Cyclobenzaprine HCl 5 MG Tablet 1 tablet as needed Orally Three times a day , Taking Eliquis 2.5 MG Tablet Take 1 tablet by mouth twice daily Orally Twice a day , Taking Potassium Chloride ER 10 MEQ Capsule Extended Release 1 cap(s) orally once daily , Taking Pantoprazole Sodium 40 MG Tablet Delayed Release 1 tab(s) orally once a day , Taking Basaglar KwikPen 100 UNIT/ML Solution Pen-injector INJECT 60 UNITS SUBCUTANEOUSLY ONCE DAILY AT BEDTIME Subcutaneous , Notes to Pharmacist: E11.9, Taking amLODIPine Besylate 5 MG Tablet 1 tab(s) orally once a day , Taking Metoprolol Succinate ER 100 MG Tablet Extended Release 24 Hour 1 tab(s) orally once a day , Taking Lisinopril-hydroCHLOROthiazide 10-12.5 MG Tablet 1 tab(s) orally once a day , Medication List reviewed and reconciled with the patient * Allergies: A moxicillin: rash, itchy - Allergy. Objective: * Vitals: W t:255.8, Temp:97.9, BP:156/92, HR:70, Nurse:MARITZA, Ht: 71, BMI:35.67. * Examination: C ardiology: General Appearance: p leasant, NAD. . H EENT:?ptosis o f l eft eye, otherwise unremarkable. C arotid upstroke: n ormal, no bruits. H eart sounds: R RR, normal S1, S2. M urmur, click , gallop: n one. L ungs: clear, no rales or wheezes. E xtremities: n o leg edema. Assessment: * Assessment: 1. H ypertension - [...] . C ervical disc disease - M50.90 9 .?Cough - R05.9 Plan: * Treatment: 2. T ype 2 diabetes mellitus without complications Refill Basaglar KwikPen Solution Pen-injector, 100 UNIT/ML, inject 60 units subcutaneously once daily at bedtime, Subcutaneous, 18 ml, Refills 5, Notes to Pharmacist: E11.9. Notes: A1c is marginally improved but not at goal. Again instructed on titrating his insulin dose and reinforced diet and weight loss. 3. A trial flutter with rapid ventricular response Continue Eliquis Tablet, 2.5 MG, Take 1 tablet by mouth twice daily, Orally, Twice a day. ? 4. C ough Start Benzonatate Capsule, 100 MG, 1 capsule as needed, Orally, Three times a day prn, 20. ? * Labs: * L ab: H-Lipid Panel (Collection Date & Time - 12/11/2024 11:17 AM) t rigs 234, dldl 54, vldl 47, hdl 28, chol/hdl 5.1 Value Reference Range T RIG 234 H 30-150 - mg/dl * C HOL 143 140-200 - mg/dl * D LDL 54.16 L 100-129 - mg/dL * V LDL 47 H 0-40 - mg/dL * H DL 28 L 40-60 - mg/dl * C HLHDL 5.1 H 1-3.5 - * Nicholas Heard 12/14/2024 8 :34:56 AM >See phone encounter ?Lab: H-CMP (Collection Date & Time - 12/11/2024 11:17 AM)?glu 146* Value Reference Range N A 137 136-145 - mmol/L * K 3.7 3.5-5.1 - mmoL/L * C L 103 98-107 - mmol/L * C O2 27 22.0-30.0 - mmol/L * G AP 10.7 5-15 - mEq/L * B UN 18 9-20 - mg/dl * C REATT 0.90 0.66-1.25 - mg/dl * G FRAA 103 >60 - ML/MIN * E GFR 85 >60 - ml/min * G MILES 146 H 74-100 - mg/dl * C A 9.6 8.4-10.2 - mg/dl * B ILIT 0.7 0.2-1.3 - mg/dl * A ST 32 17-59 - U/L * A LT 40 12-78 - U/L * T P 7.0 6.3-8.2 - g/dl * A LB 4.5 3.5-5.0 - g/dl * G LOB 2.5 1.3-3.2 - g/dL * A GRATIO 1.8 1.1-1.8 - * A LP 87 38-126 - U/L * Nicholas Heard 12/14/2024 8 :34:56 AM >See phone encounter ?Lab: H-Glycohemoglobin A1C (Collection Date & Time - 12/11/2024 11:17 AM) ?8.4* Value Reference Range H GBA1C 8.4 H 4.0-6.0 - % * Nicholas Heard 12/14/2024 8 :34:56 AM >See phone encounter * Follow Up: 6 Months * Images: Billing Information: * Visit Code: 23124 Office Visit, Est Pt., Level 4. * Procedure Codes: * Electronic signature of Nicholas Heard MD on 09/24/2025 at 11:02 PM EDT Sign off status: Pending * Provider: Nicholas Heard M.D. Date: 0 12/09/2024 Generated for Printi danielle/Matty/eTransmitting on: 1 11:02 PM EDT History and Physical Notes * HPI (History of Present Illness) Category Sub-Category Detail Notes Category Not es ENT/respiratory cough Pt sts that he h as had a cough for about 3 weeks. Pt sts that he was seen at [facility] and given an antibiotic and cough pill. Pt sts that he is finished w/ the abx and still has the cough pills if he needs them. Cough is now mostly dry nonproductive. Examination Category Sub-Category Detail Notes Category Not es Cardiology Lungs: clear, no rales or wheezes HEENT: ptosis of left eye, otherwise unremarkable Heart sounds: RRR, normal S1, S2 Carotid upstroke: normal, no bruits Extremities: no leg edema Murmur, click , gallop: none General Appearance: pleasant, NAD.
--- OUTSIDE RECORDS SUMMARY | 2025-06-09 05:00 | XMS_ITS ---
[facility] [address] [place] [phone] Care Team Providers Care Supervisor Silvering Department Name Role Phone Nicholas Heard Primary Care Provider Allergies Allergen (clinical drug ingredient) Drug/Non Drug Allergy documented on EMR Reaction Allergy Type Onset Date Status amoxicillin Amoxicillin rash, itchy Drug Allergy A ctive Results Component Value Reference Range Notes CBC Venipuncture (in house) Reviewed date:06/12/2025 04:17:41 PM Interpretation:normal Performing Lab: Notes/Report: normal wbc 7.9 3.5 - 10 lymph 24.1 15 - 50 mid 7.3 2 - 15 gran 68.6 35 - 80 rbc 5.59 3.5 - 5.5 hgb 15.8 11.5 - 16.5 hct 47.8 35 - 55 mcv 85.4 75 - 100 mch 28.4 25 - 35 mchc 33.2 31 - 38 platlet 261 100 - 400 Glycohemoglobin A1c (in hous e) Reviewed date:06/12/2025 04:17:41 PM Interpretation:6.5% Performing Lab: Notes/Report: 6.5% glycohemoglobin 6.5% 5 - 6.5 % P-Comprehensive Metabolic Pa jillian (CMP) Reviewed date:06/12/2025 04:17:40 PM Interpretation:FBS 137; GFR 74 Performing Lab: Notes/Report: Test performed by [email or web address] [facility] , [address], [place] [address] Bc Garnica MD, Ip/Mosaic Technician CLIA: [id number] Sodium 143 135-145 mmol/L Potassium 3.7 3.5-5.3 mmol/L Chloride 105 97-108 mmol/L CO2 26 20-32 mmol/L Glucose 137 65-99 mg/dL BUN 24 8-23 mg/dL Creatinine 1.11 0.70-1.30 mg/dL Calcium 9.8 8.6-10.4 mg/dL eGFR by Creatinine 74 >59 mL/min/1.73m2 Protein 7.4 6.0-8.3 g/dL Albumin 4.6 3.5-5.3 g/dL Alkaline Phosphatase 89 40-129 IU/L ALT (SGPT) 28 <5-55 IU/L AST (SGOT) 23 <5-46 IU/L Bilirubin, Total 0.5 <0.2-1.2 mg/dL A/G Ratio 1.6 1.1-2.5 P-PSA Reviewed date:06/12/2025 04:17:41 PM Interpretation:0.03 Performing Lab: Notes/Report: Test performed by [email or web address] [address] [place], [place] [address] , [address], [place] [address] Bc Garnica MD, Ip/Mosaic Technician CLIA: [id number] PSA 0.03 <4.00 ng/mL Please note this is an ultrasensitive PSA assay with a lower limit of detection of 0.014 ng/mL. This test is performed by the ARI ECLIA methodology. Values obtained with different assay methods or kits cannot be directly compared. P-Microalbumin/Creatinine, R andom Urine Sample Reviewed date:06/12/2025 04:17:41 PM Interpretation:normal Performing Lab: Notes/Report: Test performed by [email or web address] [address] [place], [place] [address] [address] , [address], [place] [address] Bc Garnica MD, Ip/Mosaic Technician CLIA: [id number] Albumin/Creatinine Ratio, Urine 29 0-30 ug/m g Microalbumin, Urine, Random 1.3 Creatinine, Urine 45.2 REASON FOR VISIT 6 month checkup and Annual Wellness Visit Medications Medication SIG (Take, Route, Frequency, Duration) Notes Start Date End Date Status Eliquis 2.5 MG Take 1 tablet by twice daily Orally Twice a day Active Farxiga 5 MG 1 tablet Orally Once a day 12/14/2024 Active Potassium Chloride ER 10 MEQ 1 cap(s) orally once daily Active Lisinopril-hydroCHLOROthia zide 10-12.5 MG 1 tab(s) orally once a day Active amLODIPine Besylate 5 MG 1 tab(s) orally once a day Active Metoprolol Succinate ER 100 MG 1 tab(s) orally once a day Active amLODIPine Besylate 5 MG Take 1 tablet b y mouth once daily; Duration: 90 Active Potassium Chloride ER 10 MEQ 1 cap(s) orally Once a day; Duration: 90 days Active Pantoprazole Sodium 40 MG 1 tab(s) Orall y Once a day; Duration: 90 days Active Metoprolol Succinate ER 100 MG TAKE 1 TABLET EVERY DAY; Duration: 90 Active Accu-Chek Softclix Lancets - as directed test three times per day and as needed 06/16/2023 Active Lisinopril-hydroCHLOROthia zide 10-12.5 MG 1 tab(s) orally once a day; Duration: 90 days Active Benzonatate 100 MG 1 capsule as needed Orally Three times a day prn 12/09/2024 Not-Taking Accu-Chek Guide - as directed test thr ee times per day and as needed 06/16/2023 Active Cyclobenzaprine HCl 5 MG 1 tablet as nee ded Orally Three times a day 05/31/2024 Not-Taking CPAP SUPPLIES DIRECTED 08/08/2020 Act alfredo Lantus SoloStar 100 UNIT/ML 62 units Subcutaneous once daily CLAIRE 01/04/2025 Active Blood Glucose Monitor System w/Device as directed 06/12/2023 Active Problems Problem Type SNOMED Code ICD Code Onset Dates Problem Status W/U Status Risk Notes Problem Body mass index 30.00 to 34.99 ([id number] 107) BMI 34.0-34.9,a dult (Z68.34) Active confirmed Vital Signs Blood pressure systolic 150 mm Hg 06/09/20 25 Blood pressure diastolic 80 mm Hg 025 Heart Rate 81 /min 06/09/2025 Height 71 in 06/09/2025 Weight 246.6 lbs 06/09/2025 BMI 34.39 kg/m2 06/09/2025 Encounters Encounter Location Date Provider Diagnosis [facility] [address] [place] [phone] 06/09/2025 Nicholas Kapoor Félix Type 2 diabetes mellitus without complications E11.9 ; Hypertension I10 ; intermediate card tender (current) use of insulin Z79.4 ; Dyslipidemia E78.5 ; Sleep apnea, unspecified type G47.30 ; Atrial flutter with rapid ventricular response I48.92 ; Prostate cancer C61 ; Cervical disc disease M50.90 ; Type 2 diabetes mellitus with hyperglycemia E11.65 and BMI 34.0-34.9,adult Z68.34 Assessments Encounter Date Diagnosis (ICD Code) Assessment Notes Treatment Notes Treatment Clinical Notes Section Notes 06/09/2025 Type 2 diabetes mellitus without complications (ICD-10 - E11.9) Reinforced diet and weight loss. 06/09/2025 Hypertension (ICD-10 - I10) 06/09/2025 intermediate card tender (current) use of insulin (ICD-10 - Z79.4) 06/09/2025 Dyslipidemia (ICD-10 - E78.5) 06/09/2025 Sleep apnea, unspecified type (ICD-10 - G47.30) 06/09/2025 Atrial flutter with rapid ventricular response (ICD-10 - I48.92) 06/09/2025 Prostate cancer (ICD-10 - C61) 06/09/2025 Cervical disc disease (ICD-10 - M50.90) 06/09/2025 Type 2 diabetes mellitus with hyperglycemia (ICD-10 - E11.65) 06/09/2025 BMI 34.0-34.9,adult (ICD-10 - Z68.34) 06/09/2025 Other Patient instructed to return to office Annually for Annual Wellness Visits to include annual screenings of Pain assessment, Functional Ability assessment, Cognitive Ability assessment, Fall Risk assessment, Depression screening and Bladder control screening. Plan Of Treatment Medication Medication Name Sig Start Date Stop Date Notes Eliquis 2.5 MG Take 1 tablet by twice daily Orally Twice a day Farxiga 5 MG 1 tablet Orally Once a day 12/14/2024 Potassium Chloride ER 10 MEQ 1 cap(s) orally once daily Lisinopril-hydroCHLOROthiazi de 10-12.5 MG 1 tab(s) orally once a day amLODIPine Besylate 5 MG 1 tab(s) orally once a day Metoprolol Succinate ER 100 MG 1 tab(s) orally once a day Lantus SoloStar 100 UNIT/ML 62 units Sub cutaneous once daily 01/04/2025 CLAIRE Treatment Notes Assessment Notes Type 2 diabetes mellitus wit hout complications Reinforced diet and weight loss. Other Patient instructed t o return to office Annually for Annual Wellness Visits to include annual screenings of Pain assessment, Functional Ability assessment, Cognitive Ability assessment, Fall Risk assessment, Depression screening and Bladder control screening. Next Appt Details Follow Up: 6 Months, Reason: Provider Name:Nicholas Ho, 12/13/2025 09:00:00 AM, [address], [address], [place], [place], [phone], Progress Notes * AKILAH MURTAZADOB:1960 ( 65 yo M)Acc No.[id number]:06/09/2025 Annual Wellness Visit Patient: MURTAZA DEGROOT Provider: Nicholas Heard M.D. :1960 A ge:65 Y S ex:Male Date:06/09/2025 Address:[address] [place], [place] [address], [id number] Subjective: * Chief Complaints: * 1 . 6 month checkup and Annual Wellness Visit. * HPI: H PI: 65 year old male presents with c/o Patient is here today for?Pt is here today for a 6 month check up. Pt sts he is doing well and has no concerns at this time. Pt is fasting. E ndocrinology: He has been more compliant with diet and has lost some weight. States his blood sugars are consistently less than 150 at home. C ardiology: Continues to follow with cardiology with no change in his regimen. * ROS: D ERMATOLOGY: no R sydney. n o H arlyn. G ASTROENTEROLOGY: no N ausea. n o V omiting. O PTHALMOLOGY: Negative for d enies issues with vision. U ROLOGY: no D ifficulty urinating. n o B lood in urine. * Medical History: H ypertension, Type 2 DM , MAZIN, White coat syndrome, Prostate cancer - diagnose 01/2020, [place] palsy - 10/2021, Rapid atrial flutter - cardioverted 12/2021, GERD, Kidney stones. * Surgical History: c arpal tunnel both hands , esophageal dilitation , prostatectomy/ Dr. Sheriff 03/2020, open procedure to remove kidney stone 2021. * Hospitalization/Major Diagno stic Procedure: [facility]-hurt right knee while in training 11/04/11. [...] day and as needed , Taking Lisinopril-hydroCHLOROthiazide 10- 12.5 MG Tablet 1 tab(s) orally once a day , Taking Lantus SoloStar 100 UNIT/ML Solution Pen-injector 60 units Subcutaneous once daily , Notes to Pharmacist: CLAIRE, Taking Metoprolol Succinate ER 100 MG Tablet Extended Release 24 Hour TAKE 1 TABLET EVERY DAY , Taking Potassium Chloride ER 10 MEQ Capsule Extended Release 1 cap(s) orally Once a day , Taking Pantoprazole Sodium 40 MG Tablet Delayed Release 1 tab(s) Orally Once a day , Taking Lisinopril-hydroCHLOROthiazide 10-12.5 MG Tablet 1 tab(s) orally once a day , Taking Farxiga 5 MG Tablet 1 tablet Orally Once a day , Taking amLODIPine Besylate 5 MG Tablet Take 1 tablet by mouth once daily , Not-Taking Cyclobenzaprine HCl 5 MG Tablet 1 tablet as needed Orally Three times a day , Not-Taking Benzonatate 100 MG Capsule 1 capsule as needed Orally Three times a day prn , Medication List reviewed and reconciled with the patient * Allergies: A moxicillin: rash, itchy - Allergy. Objective: * Vitals: W t: 246.6, Temp: 97.8, BP: 150/80, HR: 81, Nurse: minerva, Ht: 71, BMI:34.39. * Examination: C ardiology: General Appearance: p leasant, NAD. . H EENT:?ptosis o f l eft eye, otherwise unremarkable. C arotid upstroke: n ormal, no bruits. H eart sounds: R RR, normal S1, S2. M urmur, click , gallop: n one. L ungs: clear, no rales or wheezes. E xtremities: n o leg edema. Assessment: * Assessment: 1. T ype 2 diabetes mellitus without complications - E11.9 (Primary) 2 . H ypertension - I10 3 . L geradlo term (current) use of insulin - Z79.4 ?4. D yslipidemia - E78.5 5 . S leep apnea, unspecified type - G47.30 6 . A trial flutter with rapid ventricular response - I48.92 7 .?Prostate cancer - C61 8 . C ervical disc disease - M50.90 9 .?Type 2 diabetes mellitus with hyperglycemia - E11.65 1 0. B W[place] 34.0-34.9,adult - Z68.34 Plan: * Treatment: Value Reference Range A lbumin/Creatinine Ratio, Urine 29 0-30 - ug /mg * C reatinine, Urine 45.2 - mg/dL * M icroalbumin, Urine, Random 1.3 - mg/dL * See phone encounter ?LAB: Glycohemoglobin A1c (in house) (Collection Date & Time - 06/09/2025)? 6.5%* Value Reference Range g lycohemoglobin 6.5% 5 - 6.5 % * Carrie Sierra 06/09/2025 10:2 0:43 AM EDT > See phone encounter Notes: Reinforced diet and weight loss.??2.?Hypertension? Continue Metoprolol Succinate ER Tablet Extended Release 24 Hour, 100 MG, 1 tab(s), orally, once a day;?Continue Lisinopril-hydroCHLOROthiazide Tablet, 10- 12.5 MG, 1 tab(s), orally, once a day; Continue amLODIPine Besylate Tablet, 5 MG, 1 tab(s), orally, once a day;?Continue Potassium Chloride ER Capsule Extended Release, 10 MEQ, 1 cap(s), orally, once daily.?LAB: P-Comprehensive Metabolic Panel (CMP) (Collection Date & Time - 06/09/2025 08:12 AM)?FBS 137; GFR 74* Value Reference Range A /G Ratio 1.6 1.1-2.5 - * A lbumin 4.6 3.5-5.3 - g/dL * A lkaline Phosphatase 89 40-129 - IU/L * A LT (SGPT) 28 <5-55 - IU/L * A ST (SGOT) 23 <5-46 - IU/L * B ilirubin, Total 0.5 <0.2-1.2 - mg/dL * B UN 24 H 8-23 - mg/dL * C alcium 9.8 8.6-10.4 - mg/dL * C hloride 105 97-108 - mmol/L * C O2 26 20-32 - mmol/L * C reatinine 1.11 0.70-1.30 - mg/dL * G lucose 137 H 65-99 - mg/dL * P otassium 3.7 3.5-5.3 - mmol/L * S odium 143 135-145 - mmol/L * P rotein 7.4 6.0-8.3 - g/dL * e GFR by Creatinine 74 >59 - mL/min/1.73m2 * See phone encounter ?LAB: CBC Venipuncture (in house) (Collection Date & Time - 06/09/2025)? normal* Value Reference Range w bc 7.9 3.5 - 10 * l ymph 24.1 15 - 50 * m id 7.3 2 - 15 * g ran 68.6 35 - 80 * r bc 5.59 3.5 - 5.5 * h gb 15.8 11.5 - 16.5 * h ct 47.8 35 - 55 * m cv 85.4 75 - 100 * m ch 28.4 25 - 35 * m chc 33.2 31 - 38 * p latlet 261 100 - 400 * Carrie Sierra 06/09/2025 10:2 1:35 AM EDT > See phone encounter 3.?Atrial flutter with rapid ventricular response? Continue Eliquis Tablet, 2.5 MG, Take 1 tablet by mouth twice daily, Orally, Twice a day.? 4.?Prostate cancer?LAB: P-PSA (Collection Date & Time - 06/09/2025 08:12 AM)?0.03* Value Reference Range P SA 0.03 <4.00 - ng/mL * See phone encounter 5.?Others? Notes:Patient instructed to return to office Annually for Annual Wellness Visits to include annual screenings of Pain assessment, Functional Ability assessment, Cognitive Ability assessment, Fall Risk assessment, Depression screening and Bladder control screening.?? * Procedure Codes: G 2211 Complex [place], [address] GLYCATED HEMOGLOBIN TEST, Modifiers: QW , 1159F MED LIST DOCD [place], [address] CBC WITH AUTO DIFF, 1036F TOBACCO NON-USER, 3044F HG A1C LEVEL LT 7.0%, G8950 PREHTN/HTN BP DOC INDCD F/U DOC, G8753 MOST RECENT SYSTOLIC BP >= 140MM HG, G8754 MOST RECENT DIASTOLIC BP < 90MM HG, 3017F COLORECTAL CA SCREEN DOC REV * Preventive Medicine: Counseling: E motional health: E ncouraged to try connecting with family or friends to boost mood. B ladder control: D iscussed ways to control/manage leakage of urine. Exercise: A dvised to start, increase or maintain level of exercise/physical activity. I njury prevention: D iscussed fall prevention. Discussed need for cane/walker. Potential trip hazards discussed. Immunizations: P neumococcal r ecommended. I nfluenza r ecommended seasonally. Screening / Special Tests: C olonoscopy R ecent history:, Cologuard:01/22/2024, negative. P SA , normal, ordered today. D iabetic Retinal Eye Exam R ecent history:, recommended today. N ephrology History R ecent history:, GFR and urine M/A ordered today. * Follow Up: 6 Months * Images: Billing Information: * Visit Code: 96927 Office Visit, Est Pt., Level 4. * Procedure Codes: G2211 Complex e/[place]. [address] GLYCATED HEMOGLOBIN TEST. Modifiers: QW 1159F [place] [address] CBC WITH AUTO DIFF. 1036F TOBACCO NON-USER. 3044F HG A1C LEVEL LT 7.0%. G8950 PREHTN/HTN BP DOC INDCD F/U DOC. G8753 MOST RECENT SYSTOLIC BP >= 140MM HG. G8754 MOST RECENT DIASTOLIC BP < 90MM HG. 3017F COLORECTAL CA SCREEN DOC REV. * Electronic signature of Nicholas Heard MD on 09/24/2025 at 11:03 PM EDT Sign off status: Pending * Provider: Nicholas Heard M.D. Date: 0 06/09/2025 Generated for Gunjan santos/Matty/Meraryitting on: 1 11:03 PM EDT History and Physical Notes * HPI (History of Present Illness) Category Sub-Category Detail Notes Category Not es Endocrinology He has been mo re compliant with diet and has lost some weight. States his blood sugars are consistently less than 150 at home. Cardiology Continues to fo llow with cardiology with no change in his regimen. HPI Patient is here today for Pt is here today for a 6 month check up. Pt sts he is doing well and has no concerns at this time. Pt is fasting Examination Category Sub-Category Detail Notes Category Not es Cardiology Lungs: clear, no rales or wheezes HEENT: ptosis of left eye, otherwise unremarkable Heart sounds: RRR, normal S1, S2 Carotid upstroke: normal, no bruits Extremities: no leg edema Murmur, click , gallop: none General Appearance: pleasant, NAD.
--- NOTE | 2025-09-24 22:35 | ECG_ITS ---
APPROVED REPORT Exam: Resting ECG HR:143 bpm ECG Measurements Heart Rate 143 AXES QRSd 90 QRS -17 QT 342 T 66 QTc 425 Conclusion ATRIAL FLUTTER/TACHYCARDIA WITH RAPID VENTRICULAR RESPONSE WITH ABERRANT CONDUCTION OR VENTRICULAR PREMATURE COMPLEXES LEFT VENTRICULAR HYPERTROPHY AND ST-T CHANGE [VOLTAGE CRITERIA PLUS ST/T ABNORMALITY] ABNORMAL ECG UNCONFIRMED REPORT Electronically signed by : ERICA GARCIA, 09/27/2025 06:25:10
[2025-09-24 22:42] VITALS: BP 196/143; PULSE 146; RESP 18; TEMP 37; O2SAT 98; BMI 34.4
--- NOTE | 2025-09-24 22:45 | CT_ITS ---
PROCEDURE INFORMATION: Exam: CTA Chest With Contrast Exam date and time: 09/24/2025 11:43 PM Age: 65 years old Clinical indication: Other: Tachycardia/htn TECHNIQUE: Imaging protocol: Computed tomographic angiography of the chest with contrast. Exam focused on the arteries. 3D rendering (Not supervised by radiologist): MIP and/or 3D reconstructed images were created by the technologist. Radiation optimization: All CT scans at this facility use at least one of these dose optimization techniques: automated exposure control; mA and/or kV adjustment per patient size (includes targeted exams where dose is matched to clinical indication); or iterative reconstruction. Contrast material: ISO 370; Contrast volume: 70 ml; Contrast route: INTRAVENOUS (IV); COMPARISON: CT ANGIO CHEST PE PROTOCOL 12/14/2021 5:47 PM FINDINGS: Pulmonary arteries: Normal. No pulmonary emboli. There is equal opacification of the pulmonary artery and aorta. The distal pulmonary arteries are not well evaluated with restart pulmonary emboli. Aorta: Unremarkable. No aortic aneurysm. No aortic dissection. Lungs: Calcified granuloma left upper lobe. There are few linear dose knees at the left lung base consistent with subsegmental atelectasis and/or scarring. No consolidation. No mass. Pleural spaces: Unremarkable. No pneumothorax. No pleural effusion. Heart: Unremarkable. No cardiomegaly. No pericardial effusion. Lymph nodes: Small calcified left hilar and mediastinal lymph nodes. Gallbladder and biliary ducts: Cholelithiasis is noted. Adrenal glands: Stable nodularity of the left adrenal gland. Bones/joints: There are moderate degenerative changes of the spine. No acute fracture. Soft tissues: Unremarkable. IMPRESSION: 1. No pulmonary embolus or acute aortic findings are evident. 2. Subsegmental atelectasis and/or scarring at the left lung base. 3. Cholelithiasis. 4. Other nonurgent findings as noted.
--- NOTE | 2025-09-24 22:50 | HMH.EDGENADL ---
Discharge Plan Disposition Patient Disposition: Home, Self-Care Prescriptions Prescriptions: No Action dapagliflozin propanediol [Farxiga] 5 mg tablet 5 mg PO DAILY Patient Comments: TAKE 1 TABLET BY MOUTH ONCE DAILY Eliquis 5 mg tablet 5 mg PO BID Qty: 180 3RF potassium chloride 10 mEq capsule, extended release 10 meq PO DAILY Patient Comments: TAKE 1 CAPSULE BY MOUTH ONCE DAILY metoprolol succinate 100 mg tablet extended release 24 hr 100 mg PO DAILY Patient Comments: TAKE 1 TABLET BY MOUTH ONCE DAILY amlodipine 5 mg tablet 5 mg PO DAILY Patient Comments: TAKE 1 TABLET BY MOUTH ONCE DAILY pantoprazole 40 mg tablet,delayed release (DR/EC) 40 mg PO DAILY Patient Comments: TAKE 1 TABLET BY MOUTH ONCE DAILY lisinopril-hydrochlorothiazide 10-12.5 mg tablet 1 tab PO DAILY Patient Comments: TAKE 1 TABLET BY MOUTH ONCE DAILY insulin glargine [Basaglar KwikPen U-100 Insulin] 100 unit/mL (3 mL) insulin pen See Rx Instructions .ROUTE .COMPLEX Rx Instructions: . Referrals Follow up/Referrals: Bal Heard MD [Primary Care Provider, Medical] - See instructions Activity Restrictions/Add. 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 Please return to the emergency department if you develop any new or worsening symptoms or become concerned for your health. Clinical Impressions Clinical Impression: Atrial flutter Instructions Patient Instructions: Atrial Flutter, Moderate Sedation Print Language Print Language: Estonian Discharge ED Provider: Joy Viramontes General Adult HPI <Joy Viramontes DO - Last Filed: 09/25/25 01:12> General Chief complaint: Arrhythmia/Palpitations Stated complaint: fast heartrate Time Seen by Provider: 09/24/25 22:49 Mode of Arrival: Ambulatory Source of Information: Patient Description of Symptoms (Recalled from ER Triage Doc. by RN): PT presents to the ED for evaluation elevated HR. PT stated he took his BP at home and noticed a fast HR. PT stated he had a cardiac episode a few years ago and had to go to the OR but was unsure what surgery was performed. History of Present Illness HPI narrative: Patient is a 65-year-old gentleman who presented to the emergency department with palpitations, chest pain that started around 9:30 PM. Patient states that he was outside trimming the bushes when he went inside and checked his blood pressure and realized that his heart rate was fast. States that he noticed that his heart rate was slightly elevated but did not notice it before taking his blood pressure. States that this occurred 1 time before and he had an ablation done at that time. Patient is currently on metoprolol, as well as high blood pressure medicines. Patient is on Eliquis and has been taking this regularly. Patient denies any recent fevers cough chills runny nose or other infectious symptoms. Patient denies any abdominal pain nausea vomiting or diarrhea. Patient denies any shortness of breath. States that he took all of his medications as prescribed today. Related Data Home Medications ?Medication ?Instructions ?Recorded ?Confirmed amlodipine 5 mg tablet 5 mg PO DAILY 11/15/24 04/18/25 insulin glargine 100 unit/mL (3 See Rx Instructions .Route .COMPLEX 11/15/24 04/18/25 mL) subcutaneous pen (Basaglar KwikPen U-100 Insulin) lisinopril 10 1 tab PO DAILY 11/15/24 04/18/25 mg-hydrochlorothiazide 12.5 mg tablet metoprolol succinate 100 mg 100 mg PO DAILY 11/15/24 04/18/25 tablet,extended release 24 hr pantoprazole 40 mg tablet,delayed 40 mg PO DAILY 11/15/24 04/18/25 release potassium chloride 10 mEq 10 meq PO DAILY 11/15/24 04/18/25 capsule,extended release dapagliflozin propanediol 5 mg 5 mg PO DAILY 01/13/25 04/18/25 tablet (Farxiga) Previous Rx's ?Medication ?Instructions ?Recorded apixaban 5 mg tablet (Eliquis) 5 mg PO BID #180 tabs 06/07/25 Allergies Allergy/AdvReac Type Severity Reaction Status Date / Time amoxicillin Allergy Unknown Verified 04/18/25 09:22 [facility] <Joy Viramontes, DO - Last Filed: 09/25/25 01:12> [facility] Disclaimer: The information contained in this section may have been updated after the patient was seen, as this information can be updated by other users. 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 H/O nephrolithotomy with removal of calculi Sinus bradycardia PAF (paroxysmal atrial fibrillation) Current use of snf anticoagulation HBP (high blood pressure) Atrial flutter HARINI (acute kidney injury) Esophageal abnormality Social History Smoking Status: Never smoker alcohol intake: current alcohol intake frequency: a few times a week substance use type: denies use current occupational status: unemployed Travel in the last 8 weeks?: Inside the [place] household members: spouse housing: house caffeine: Yes Have you lived/traveled outside [place] in past 30 days?: No Contact w/someone who lives/traveled outside US past 30 days?: No Exposure to someone with infectious disease in past 14 days?: No Do you have a fever (greater than 100.4 F or 38 C)?: No Have you tested positive for COVID-19?: No Exposed to someone with COVID-19 in past 14 days?: No Do you have a sore throat?: No Do you have a cough?: No Do you have any weakness?: No Do you have any diarrhea?: No Are you experiencing any unusual bleeding?: No Do you have any muscle aches/pain?: No Do you have any abdominal pain?: No Are you experiencing loss of taste or smell?: No Other Medical History Have you received the Flu Vaccine for this season: No Have you received the Pneumonia Vaccine: No <Joy Viramontes DO - Last Filed: 09/25/25 01:12> ROS Obtained: Yes All systems reviewed & no additional complaints except as documented and Yes Systems reviewed as appropriate & no additional complaints except as documented Physical Exam <Joy Viramontes DO - Last Filed: 09/25/25 01:12> General General appearance: alert and in no apparent distress Head Head exam: atraumatic, normocephalic and normal inspection Eye Eye exam: Present normal appearance, PERRL and EOMI; Absent scleral icterus ENT ENT exam: Present normal exam and normal external ear exam Neck Neck exam: Present normal inspection and full ROM Chest Chest inspection: Present normal inspection and symmetric chest wall rise Respiratory Respiratory exam: Present normal lung sounds bilaterally; Absent respiratory distress or wheezes Cardiovascular Cardiovascular exam: Present tachycardia, irregular rhythm and normal heart sounds Abdominal Exam Abdominal exam: Present soft and distention; Absent tenderness, guarding or rebound Extremities Exam Extremities exam: Present normal inspection and full ROM Back Exam Back exam: Present normal inspection and full ROM Neurological Exam Neurological exam: Present alert and oriented X3 Psychiatric Psychiatric exam: Present normal affect and normal mood Skin Skin exam: Present warm and dry Medical Decision Making <Joy Viramontes, DO - Last Filed: 09/25/25 01:12> Medical Records Medical records reviewed: Yes I reviewed the patient's medical records. Screening: Per USPSTF and CDC recommendations, given the prevalence of disease in our region, it is our hospital?s policy to screen for HIV and viral Hepatitis for all patients aged 18 and over and those with ongoing risk factors. Sean Inquiry Pt receiving controlled substance: No Vital Signs: 09/24/25 22:42 09/24/25 22:55 09/24/25 23:52 Temperature 98.6 F Temperature Source Oral Pulse Rate 144 H 137 H Pulse Rate [Right] 146 H Respiratory Rate 18 14 15 Blood Pressure 180/125 H Blood Pressure [Right Arm] 196/143 H Blood Pressure Mean Blood Pressure Mean [Right Arm] 160 Blood Pressure Source Blood Pressure Position 02 Sat by Pulse Oximetry 98 98 97 Oxygen Delivery Method Room Air Room Air Room Air Oxygen Flow Rate (LPM) 09/24/25 23:52 09/25/25 00:00 09/25/25 00:16 Temperature Temperature Source Pulse Rate Pulse Rate [Right] Respiratory Rate 13 Blood Pressure 159/112 H 166/102 H Blood Pressure [Right Arm] Blood Pressure Mean 127 133 Blood Pressure Mean [Right Arm] Blood Pressure Source Blood Pressure Position 02 Sat by Pulse Oximetry 96 Oxygen Delivery Method Room Air Oxygen Flow Rate (LPM) 09/25/25 00:16 09/25/25 00:30 09/25/25 00:47 Temperature Temperature Source Pulse Rate 131 H Pulse Rate [Right] Respiratory Rate 15 Blood Pressure 178/119 H 149/113 H Blood Pressure [Right Arm] Blood Pressure Mean 138 125 Blood Pressure Mean [Right Arm] Blood Pressure Source Blood Pressure Position 02 Sat by Pulse Oximetry 94 L Oxygen Delivery Method Room Air Oxygen Flow Rate (LPM) 09/25/25 00:47 09/25/25 01:10 09/25/25 01:10 Temperature Temperature Source Pulse Rate Pulse Rate [Right] Respiratory Rate 15 Blood Pressure 177/137 H 164/122 H Blood Pressure [Right Arm] Blood Pressure Mean 148 141 Blood Pressure Mean [Right Arm] Blood Pressure Source Blood Pressure Position 02 Sat by Pulse Oximetry Oxygen Delivery Method Oxygen Flow Rate (LPM) 09/25/25 01:15 09/25/25 01:15 09/25/25 01:25 Temperature 98.6 F Temperature Source Oral Pulse Rate 139 H Pulse Rate [Right] 141 H Respiratory Rate 12 14 Blood Pressure 167/118 H Blood Pressure [Right Arm] 159/114 H Blood Pressure Mean 134 Blood Pressure Mean [Right Arm] 129 Blood Pressure Source Blood Pressure Position 02 Sat by Pulse Oximetry 99 100 Oxygen Delivery Method Room Air Nasal Cannula Oxygen Flow Rate (LPM) 2 09/25/25 01:25 09/25/25 01:25 09/25/25 01:26 Temperature Temperature Source Pulse Rate 137 H Pulse Rate [Right] 107 H Respiratory Rate 15 Blood Pressure 159/114 H Blood Pressure [Right Arm] Blood Pressure Mean 134 Blood Pressure Mean [Right Arm] Blood Pressure Source Blood Pressure Position 02 Sat by Pulse Oximetry 99 Oxygen Delivery Method Room Air Oxygen Flow Rate (LPM) 09/25/25 01:27 09/25/25 01:28 09/25/25 01:28 Temperature Temperature Source Pulse Rate Pulse Rate [Right] 134 H 90 Respiratory Rate 12 Blood Pressure Blood Pressure [Right Arm] Blood Pressure Mean Blood Pressure Mean [Right Arm] Blood Pressure Source Blood Pressure Position 02 Sat by Pulse Oximetry 93 L Oxygen Delivery Method Nasal Cannula Nasal Cannula Oxygen Flow Rate (LPM) 4 4 09/25/25 01:30 09/25/25 01:30 09/25/25 01:30 Temperature 98.6 F Temperature Source Oral Pulse Rate 126 H Pulse Rate [Right] 86 Respiratory Rate 13 14 Blood Pressure 149/113 H Blood Pressure [Right Arm] 149/113 H Blood Pressure Mean 125 Blood Pressure Mean [Right Arm] 125 Blood Pressure Source Blood Pressure Position 02 Sat by Pulse Oximetry 96 96 Oxygen Delivery Method Nasal Cannula Room Air Oxygen Flow Rate (LPM) 4 09/25/25 01:34 09/25/25 01:35 09/25/25 01:36 Temperature 98.6 F 98.6 F Temperature Source Oral Tympanic Pulse Rate Pulse Rate [Right] 141 H 85 Respiratory Rate 14 12 Blood Pressure 164/106 H Blood Pressure [Right Arm] 159/114 H 164/106 H Blood Pressure Mean 115 Blood Pressure Mean [Right Arm] 129 125 Blood Pressure Source Blood Pressure Position 02 Sat by Pulse Oximetry 100 96 Oxygen Delivery Method Nasal Cannula Nasal Cannula Oxygen Flow Rate (LPM) 2 4 09/25/25 01:40 09/25/25 01:41 09/25/25 01:41 Temperature Temperature Source Pulse Rate 91 H Pulse Rate [Right] 91 H Respiratory Rate 13 16 Blood Pressure 164/101 H Blood Pressure [Right Arm] 164/101 H Blood Pressure Mean 108 Blood Pressure Mean [Right Arm] 122 Blood Pressure Source Blood Pressure Position 02 Sat by Pulse Oximetry 98 96 Oxygen Delivery Method Nasal Cannula Room Air Oxygen Flow Rate (LPM) 4 09/25/25 01:44 09/25/25 01:45 09/25/25 01:46 Temperature 98.6 F Temperature Source Tympanic Pulse Rate Pulse Rate [Right] 87 Respiratory Rate 13 Blood Pressure 145/99 H Blood Pressure [Right Arm] 145/99 H Blood Pressure Mean 114 Blood Pressure Mean [Right Arm] 114 Blood Pressure Source Blood Pressure Position 02 Sat by Pulse Oximetry 98 98 Oxygen Delivery Method Nasal Cannula Room Air Oxygen Flow Rate (LPM) 2 09/25/25 01:49 09/25/25 01:50 09/25/25 01:50 Temperature 98.6 F Temperature Source Tympanic Pulse Rate 90 90 Pulse Rate [Right] Respiratory Rate 12 9 L Blood Pressure 145/99 H 148/94 H Blood Pressure [Right Arm] Blood Pressure Mean 109 Blood Pressure Mean [Right Arm] Blood Pressure Source Blood Pressure Position 02 Sat by Pulse Oximetry 98 97 Oxygen Delivery Method Room Air Room Air Oxygen Flow Rate (LPM) 09/25/25 01:55 09/25/25 01:55 09/25/25 02:00 Temperature Temperature Source Pulse Rate 95 H 93 H Pulse Rate [Right] Respiratory Rate 12 10 L Blood Pressure 139/93 H Blood Pressure [Right Arm] Blood Pressure Mean 103 Blood Pressure Mean [Right Arm] Blood Pressure Source Blood Pressure Position 02 Sat by Pulse Oximetry 97 95 Oxygen Delivery Method Room Air Room Air Oxygen Flow Rate (LPM) 09/25/25 02:00 09/25/25 02:05 09/25/25 02:05 Temperature Temperature Source Pulse Rate 93 H Pulse Rate [Right] Respiratory Rate 13 Blood Pressure 154/95 H 138/99 H Blood Pressure [Right Arm] Blood Pressure Mean 104 107 Blood Pressure Mean [Right Arm] Blood Pressure Source Blood Pressure Position 02 Sat by Pulse Oximetry 96 Oxygen Delivery Method Room Air Oxygen Flow Rate (LPM) 09/25/25 02:10 09/25/25 02:10 09/25/25 02:13 Temperature Temperature Source Pulse Rate 96 H Pulse Rate [Right] Respiratory Rate 12 12 Blood Pressure 149/100 H Blood Pressure [Right Arm] Blood Pressure Mean 115 Blood Pressure Mean [Right Arm] Blood Pressure Source Blood Pressure Position 02 Sat by Pulse Oximetry 96 Oxygen Delivery Method Room Air Oxygen Flow Rate (LPM) 09/25/25 02:18 09/25/25 02:19 09/25/25 02:20 Temperature Temperature Source Pulse Rate 95 H 92 H Pulse Rate [Right] Respiratory Rate 15 12 Blood Pressure 165/100 H Blood Pressure [Right Arm] Blood Pressure Mean 121 Blood Pressure Mean [Right Arm] Blood Pressure Source Blood Pressure Position 02 Sat by Pulse Oximetry 94 L 97 Oxygen Delivery Method Room Air Room Air Oxygen Flow Rate (LPM) 09/25/25 02:20 09/25/25 02:26 09/25/25 02:26 Temperature Temperature Source Pulse Rate 102 H Pulse Rate [Right] Respiratory Rate Blood Pressure 159/97 H 146/98 H Blood Pressure [Right Arm] Blood Pressure Mean 114 115 Blood Pressure Mean [Right Arm] Blood Pressure Source Blood Pressure Position 02 Sat by Pulse Oximetry 95 Oxygen Delivery Method Room Air Oxygen Flow Rate (LPM) 09/25/25 02:30 09/25/25 02:30 09/25/25 02:36 Temperature Temperature Source Pulse Rate 90 94 H Pulse Rate [Right] Respiratory Rate 13 13 Blood Pressure 171/106 H Blood Pressure [Right Arm] Blood Pressure Mean 127 Blood Pressure Mean [Right Arm] Blood Pressure Source Blood Pressure Position 02 Sat by Pulse Oximetry 96 98 Oxygen Delivery Method Room Air Room Air Oxygen Flow Rate (LPM) 09/25/25 02:36 09/25/25 02:41 09/25/25 02:45 Temperature Temperature Source Pulse Rate 92 H Pulse Rate [Right] Respiratory Rate 15 Blood Pressure 151/98 H 155/96 H 135/99 H Blood Pressure [Right Arm] Blood Pressure Mean 115 109 112 Blood Pressure Mean [Right Arm] Blood Pressure Source Blood Pressure Position 02 Sat by Pulse Oximetry 97 Oxygen Delivery Method Oxygen Flow Rate (LPM) 09/25/25 02:55 09/25/25 03:00 09/25/25 03:10 Temperature Temperature Source Pulse Rate 95 H 92 H 96 H Pulse Rate [Right] Respiratory Rate 15 13 12 Blood Pressure 147/94 H 145/89 H 147/103 H Blood Pressure [Right Arm] Blood Pressure Mean 119 119 115 Blood Pressure Mean [Right Arm] Blood Pressure Source Blood Pressure Position 02 Sat by Pulse Oximetry 95 98 97 Oxygen Delivery Method Oxygen Flow Rate (LPM) 09/25/25 03:20 09/25/25 03:30 09/25/25 03:40 Temperature Temperature Source Pulse Rate 97 H 93 H 89 Pulse Rate [Right] Respiratory Rate 13 11 L 10 L Blood Pressure 152/103 H 151/97 H 153/107 H Blood Pressure [Right Arm] Blood Pressure Mean 119 121 122 Blood Pressure Mean [Right Arm] Blood Pressure Source Blood Pressure Position 02 Sat by Pulse Oximetry 96 97 98 Oxygen Delivery Method Oxygen Flow Rate (LPM) 09/25/25 03:46 09/25/25 04:01 09/25/25 04:15 Temperature Temperature Source Pulse Rate 92 H 93 H 90 Pulse Rate [Right] Respiratory Rate 13 9 L 13 Blood Pressure 136/96 H 159/109 H 132/88 Blood Pressure [Right Arm] Blood Pressure Mean 109 125 102 Blood Pressure Mean [Right Arm] Blood Pressure Source Blood Pressure Position 02 Sat by Pulse Oximetry 94 L 97 98 Oxygen Delivery Method Oxygen Flow Rate (LPM) 09/25/25 04:21 09/25/25 04:45 09/25/25 04:48 Temperature Temperature Source Pulse Rate 103 H 95 H Pulse Rate [Right] Respiratory Rate 12 12 Blood Pressure 127/90 140/93 H Blood Pressure [Right Arm] Blood Pressure Mean 110 106 Blood Pressure Mean [Right Arm] Blood Pressure Source Blood Pressure Position 02 Sat by Pulse Oximetry 96 96 Oxygen Delivery Method Room Air Oxygen Flow Rate (LPM) 09/25/25 04:50 09/25/25 04:55 09/25/25 04:55 Temperature Temperature Source Pulse Rate 95 H Pulse Rate [Right] Respiratory Rate 10 L Blood Pressure 151/94 H 165/92 H Blood Pressure [Right Arm] Blood Pressure Mean 104 105 Blood Pressure Mean [Right Arm] Blood Pressure Source Blood Pressure Position 02 Sat by Pulse Oximetry 96 Oxygen Delivery Method Room Air Oxygen Flow Rate (LPM) 09/25/25 05:00 09/25/25 05:05 09/25/25 05:10 Temperature Temperature Source Pulse Rate Pulse Rate [Right] Respiratory Rate Blood Pressure 142/85 H 145/85 H 147/86 H Blood Pressure [Right Arm] Blood Pressure Mean 110 101 97 Blood Pressure Mean [Right Arm] Blood Pressure Source Blood Pressure Position 02 Sat by Pulse Oximetry Oxygen Delivery Method Oxygen Flow Rate (LPM) 09/25/25 05:15 09/25/25 05:20 09/25/25 05:29 Temperature 98.6 F Temperature Source Pulse Rate 90 90 Pulse Rate [Right] Respiratory Rate 14 16 Blood Pressure 139/89 156/88 H 156/88 H Blood Pressure [Right Arm] Blood Pressure Mean 103 109 Blood Pressure Mean [Right Arm] Blood Pressure Source Automatic Cuff Blood Pressure Position Supine 02 Sat by Pulse Oximetry 96 Oxygen Delivery Method Room Air Oxygen Flow Rate (LPM) Lab Data Lab results reviewed: Yes I reviewed the patient's lab results. Lab Results 09/24/25 22:45: WBC 12.7 H, RBC 5.72, Hgb 16.8, Hct 48.8, MCV 85.3, MCH 29.4, MCHC 34.4, RDW 13.6, Plt Count 298, MPV 9.7, Neut % (Auto) 59.2, Lymph % (Auto) 26.0, [place] % (Auto) 11.3 H, Eos % (Auto) 2.4, Baso % (Auto) 0.8, Neut # (Auto) 7.5, Lymph # (Auto) 3.3, [place] # (Auto) 1.4 H, Eos # (Auto) 0.3, Baso # (Auto) 0.1, PT 10.9, INR 0.98, Sodium 141, Potassium 3.7, Chloride 103, Carbon Dioxide 27, Anion Gap 14.7, BUN 30 H, Creatinine 1.30 H, Estimated Creat Clear 88, Estimated GFR 56 L, Est GFR ( Amer) 67, Glucose 119 H, Calcium 9.2, Magnesium 2.1, Total Bilirubin 0.8, AST 63 H, ALT 52, Alkaline Phosphatase 87, Troponin I 0.05 H, NT-Pro-B Natriuret Pep 110, Total Protein 9.3 H D, Albumin 4.2, Globulin 5.1 H, Albumin/Globulin Ratio 0.8 L, Lipase 246, TSH 1.43, Free T4 1.48, HCV Ab JOHNNY w/Rflx PCR Qn Negative, HIV Ag/Ab Combo Qual Negative 09/25/25 01:11: Troponin I 0.04 H 09/25/25 04:15: Troponin I 0.04 H 09/24/25 22:45 09/24/25 22:45 Orders (Tests/Meds): ED MEDICATIONS Discontinued Medications Generic Name Dose Route Start Last Admin Trade Name Freq PRN Reason Stop Dose Admin Etomidate 10 mg 09/25/25 00:58 09/25/25 01:25 Etomidate 40mg/20ml Vial IV 09/25/25 00:59 10 mg ONCE ONE Administration Lactated Ringer's 1,000 mls @ 999 mls/hr 09/24/25 23:09 09/25/25 00:15 Lactated Ringer's 1000 Ml Bag IV 09/25/25 00:09 Infused .Q1H1M ONE Infusion Iopamidol 70 ml 09/24/25 23:48 09/24/25 23:49 Iopamidol-370 (76%);100ml Bottle IV 09/24/25 23:49 70 ml ONCE ONE Administration Metoprolol Tartrate 5 mg 09/24/25 22:49 09/24/25 22:53 Metoprolol Tartrate 5mg/5ml Vial IV 09/24/25 22:50 5 mg ONCE ONE Administration Metoprolol Tartrate 5 mg 09/24/25 23:52 09/25/25 00:41 Metoprolol Tartrate 5mg/5ml Vial IV 10/24/25 23:51 5 mg ONCE PRN Administration Tachyarrhythmias Sodium Chloride 50 ml 09/24/25 23:48 09/24/25 23:49 0.9 % Sodium Chloride 50 Ml Vial IV 09/24/25 23:49 50 ml ONCE ONE Administration Sodium Chloride 10 ml 09/24/25 23:48 09/24/25 23:49 Sodium Chloride 0.9% 10ml Syr (Rad Only) IV 09/24/25 23:49 10 ml ONCE ONE Administration ORDERS Category Date Time Status CT angio chest PE protocol Stat Cat Scan 09/24/25 22:45 Completed BNP [NT Pro Brain Natriuretic Pep.] Stat Lab 09/24/25 22:45 Completed CBC w/Auto Diff [Complete Blood Count Auto Diff] Stat Lab 09/24/25 22:45 Completed CMP [Comprehensive Metabolic Panel] Stat Lab 09/24/25 22:45 Completed Free T4 (Free Thyroxine) Stat Lab 09/24/25 22:45 Completed HIV Combo Stat Lab 09/24/25 22:45 Completed Hepatitis C Ab Qual. W/ RFX Stat Lab 09/24/25 22:45 Completed INR [Prothrombin Time INR] Stat Lab 09/24/25 22:45 Completed Lipase Stat Lab 09/24/25 22:45 Completed Magnesium Stat Lab 09/24/25 22:45 Completed TSH [Thyroid Stimulating Hormone] Stat Lab 09/24/25 22:45 Completed Trop I [Troponin I] Stat Lab 09/24/25 22:45 Completed Troponin I Q3H Lab 09/25/25 01:11 Completed Troponin I Q3H Lab 09/25/25 04:15 Completed 12-lead EKG Request [ECG Request] Stat Y 09/25/25 02:20 Ordered Medical Decision Narrative: Patient is a 65-year-old gentleman with a past medical history of a flutter, on Eliquis, hypertension and diabetes who presented to the emergency department with high blood pressure and tachycardia. On arrival, patient was tachycardic but vital signs were otherwise unremarkable. Differential includes but not limited to: A-flutter, electro abnormalities, ACS/CT, pulmonary embolism, amongst others. Labs were reviewed and interpreted by myself: CBC showed mild leukocytosis, hemoglobin was stable. INR was 1. CMP with mildly elevated creatinine at 1.3. Troponin elevated at 0.05. Patient's EKG looks like a flutter with a rate of 2-1 with a rate of 140s. On review of patient's old records, patient does have a history of a flutter. Patient takes 100 of metoprolol daily which she took this morning. Was given 3 doses of IV metoprolol with no significant relief patient continued to be in a flutter. CT scan was reviewed and interpreted by myself and showed no acute dissection or large pulmonary embolism. After further discussion with the patient, patient was willing to undergo cardioversion. Given that patient is on Eliquis I feel that this is safe to do. Patient was consented on the risks and benefits. Patient was signed out to the oncoming provider pending second troponin and final disposition. <Isac Sanabria MD - Last Filed: 09/25/25 05:53> Vital Signs: 09/24/25 22:42 09/24/25 22:55 09/24/25 23:52 Temperature 98.6 F Temperature Source Oral Pulse Rate 144 H 137 H Pulse Rate [Right] 146 H Respiratory Rate 18 14 15 Blood Pressure 180/125 H Blood Pressure [Right Arm] 196/143 H Blood Pressure Mean Blood Pressure Mean [Right Arm] 160 Blood Pressure Source Blood Pressure Position 02 Sat by Pulse Oximetry 98 98 97 Oxygen Delivery Method Room Air Room Air Room Air Oxygen Flow Rate (LPM) 09/24/25 23:52 09/25/25 00:00 09/25/25 00:16 Temperature Temperature Source Pulse Rate Pulse Rate [Right] Respiratory Rate 13 Blood Pressure 159/112 H 166/102 H Blood Pressure [Right Arm] Blood Pressure Mean 127 133 Blood Pressure Mean [Right Arm] Blood Pressure Source Blood Pressure Position 02 Sat by Pulse Oximetry 96 Oxygen Delivery Method Room Air Oxygen Flow Rate (LPM) 09/25/25 00:16 09/25/25 00:30 09/25/25 00:47 Temperature Temperature Source Pulse Rate 131 H Pulse Rate [Right] Respiratory Rate 15 Blood Pressure 178/119 H 149/113 H Blood Pressure [Right Arm] Blood Pressure Mean 138 125 Blood Pressure Mean [Right Arm] Blood Pressure Source Blood Pressure Position 02 Sat by Pulse Oximetry 94 L Oxygen Delivery Method Room Air Oxygen Flow Rate (LPM) 09/25/25 00:47 09/25/25 01:10 09/25/25 01:10 Temperature Temperature Source Pulse Rate Pulse Rate [Right] Respiratory Rate 15 Blood Pressure 177/137 H 164/122 H Blood Pressure [Right Arm] Blood Pressure Mean 148 141 Blood Pressure Mean [Right Arm] Blood Pressure Source Blood Pressure Position 02 Sat by Pulse Oximetry Oxygen Delivery Method Oxygen Flow Rate (LPM) 09/25/25 01:15 09/25/25 01:15 09/25/25 01:25 Temperature 98.6 F Temperature Source Oral Pulse Rate 139 H Pulse Rate [Right] 141 H Respiratory Rate 12 14 Blood Pressure 167/118 H Blood Pressure [Right Arm] 159/114 H Blood Pressure Mean 134 Blood Pressure Mean [Right Arm] 129 Blood Pressure Source Blood Pressure Position 02 Sat by Pulse Oximetry 99 100 Oxygen Delivery Method Room Air Nasal Cannula Oxygen Flow Rate (LPM) 2 09/25/25 01:25 09/25/25 01:25 09/25/25 01:26 Temperature Temperature Source Pulse Rate 137 H Pulse Rate [Right] 107 H Respiratory Rate 15 Blood Pressure 159/114 H Blood Pressure [Right Arm] Blood Pressure Mean 134 Blood Pressure Mean [Right Arm] Blood Pressure Source Blood Pressure Position 02 Sat by Pulse Oximetry 99 Oxygen Delivery Method Room Air Oxygen Flow Rate (LPM) 09/25/25 01:27 09/25/25 01:28 09/25/25 01:28 Temperature Temperature Source Pulse Rate Pulse Rate [Right] 134 H 90 Respiratory Rate 12 Blood Pressure Blood Pressure [Right Arm] Blood Pressure Mean Blood Pressure Mean [Right Arm] Blood Pressure Source Blood Pressure Position 02 Sat by Pulse Oximetry 93 L Oxygen Delivery Method Nasal Cannula Nasal Cannula Oxygen Flow Rate (LPM) 4 4 09/25/25 01:30 09/25/25 01:30 09/25/25 01:30 Temperature 98.6 F Temperature Source Oral Pulse Rate 126 H Pulse Rate [Right] 86 Respiratory Rate 13 14 Blood Pressure 149/113 H Blood Pressure [Right Arm] 149/113 H Blood Pressure Mean 125 Blood Pressure Mean [Right Arm] 125 Blood Pressure Source Blood Pressure Position 02 Sat by Pulse Oximetry 96 96 Oxygen Delivery Method Nasal Cannula Room Air Oxygen Flow Rate (LPM) 4 09/25/25 01:34 09/25/25 01:35 09/25/25 01:36 Temperature 98.6 F 98.6 F Temperature Source Oral Tympanic Pulse Rate Pulse Rate [Right] 141 H 85 Respiratory Rate 14 12 Blood Pressure 164/106 H Blood Pressure [Right Arm] 159/114 H 164/106 H Blood Pressure Mean 115 Blood Pressure Mean [Right Arm] 129 125 Blood Pressure Source Blood Pressure Position 02 Sat by Pulse Oximetry 100 96 Oxygen Delivery Method Nasal Cannula Nasal Cannula Oxygen Flow Rate (LPM) 2 4 09/25/25 01:40 09/25/25 01:41 09/25/25 01:41 Temperature Temperature Source Pulse Rate 91 H Pulse Rate [Right] 91 H Respiratory Rate 13 16 Blood Pressure 164/101 H Blood Pressure [Right Arm] 164/101 H Blood Pressure Mean 108 Blood Pressure Mean [Right Arm] 122 Blood Pressure Source Blood Pressure Position 02 Sat by Pulse Oximetry 98 96 Oxygen Delivery Method Nasal Cannula Room Air Oxygen Flow Rate (LPM) 4 09/25/25 01:44 09/25/25 01:45 09/25/25 01:46 Temperature 98.6 F Temperature Source Tympanic Pulse Rate Pulse Rate [Right] 87 Respiratory Rate 13 Blood Pressure 145/99 H Blood Pressure [Right Arm] 145/99 H Blood Pressure Mean 114 Blood Pressure Mean [Right Arm] 114 Blood Pressure Source Blood Pressure Position 02 Sat by Pulse Oximetry 98 98 Oxygen Delivery Method Nasal Cannula Room Air Oxygen Flow Rate (LPM) 2 09/25/25 01:49 09/25/25 01:50 09/25/25 01:50 Temperature 98.6 F Temperature Source Tympanic Pulse Rate 90 90 Pulse Rate [Right] Respiratory Rate 12 9 L Blood Pressure 145/99 H 148/94 H Blood Pressure [Right Arm] Blood Pressure Mean 109 Blood Pressure Mean [Right Arm] Blood Pressure Source Blood Pressure Position 02 Sat by Pulse Oximetry 98 97 Oxygen Delivery Method Room Air Room Air Oxygen Flow Rate (LPM) 09/25/25 01:55 09/25/25 01:55 09/25/25 02:00 Temperature Temperature Source Pulse Rate 95 H 93 H Pulse Rate [Right] Respiratory Rate 12 10 L Blood Pressure 139/93 H Blood Pressure [Right Arm] Blood Pressure Mean 103 Blood Pressure Mean [Right Arm] Blood Pressure Source Blood Pressure Position 02 Sat by Pulse Oximetry 97 95 Oxygen Delivery Method Room Air Room Air Oxygen Flow Rate (LPM) 09/25/25 02:00 09/25/25 02:05 09/25/25 02:05 Temperature Temperature Source Pulse Rate 93 H Pulse Rate [Right] Respiratory Rate 13 Blood Pressure 154/95 H 138/99 H Blood Pressure [Right Arm] Blood Pressure Mean 104 107 Blood Pressure Mean [Right Arm] Blood Pressure Source Blood Pressure Position 02 Sat by Pulse Oximetry 96 Oxygen Delivery Method Room Air Oxygen Flow Rate (LPM) 09/25/25 02:10 09/25/25 02:10 09/25/25 02:13 Temperature Temperature Source Pulse Rate 96 H Pulse Rate [Right] Respiratory Rate 12 12 Blood Pressure 149/100 H Blood Pressure [Right Arm] Blood Pressure Mean 115 Blood Pressure Mean [Right Arm] Blood Pressure Source Blood Pressure Position 02 Sat by Pulse Oximetry 96 Oxygen Delivery Method Room Air Oxygen Flow Rate (LPM) 09/25/25 02:18 09/25/25 02:19 09/25/25 02:20 Temperature Temperature Source Pulse Rate 95 H 92 H Pulse Rate [Right] Respiratory Rate 15 12 Blood Pressure 165/100 H Blood Pressure [Right Arm] Blood Pressure Mean 121 Blood Pressure Mean [Right Arm] Blood Pressure Source Blood Pressure Position 02 Sat by Pulse Oximetry 94 L 97 Oxygen Delivery Method Room Air Room Air Oxygen Flow Rate (LPM) 09/25/25 02:20 09/25/25 02:26 09/25/25 02:26 Temperature Temperature Source Pulse Rate 102 H Pulse Rate [Right] Respiratory Rate Blood Pressure 159/97 H 146/98 H Blood Pressure [Right Arm] Blood Pressure Mean 114 115 Blood Pressure Mean [Right Arm] Blood Pressure Source Blood Pressure Position 02 Sat by Pulse Oximetry 95 Oxygen Delivery Method Room Air Oxygen Flow Rate (LPM) 09/25/25 02:30 09/25/25 02:30 09/25/25 02:36 Temperature Temperature Source Pulse Rate 90 94 H Pulse Rate [Right] Respiratory Rate 13 13 Blood Pressure 171/106 H Blood Pressure [Right Arm] Blood Pressure Mean 127 Blood Pressure Mean [Right Arm] Blood Pressure Source Blood Pressure Position 02 Sat by Pulse Oximetry 96 98 Oxygen Delivery Method Room Air Room Air Oxygen Flow Rate (LPM) 09/25/25 02:36 09/25/25 02:41 09/25/25 02:45 Temperature Temperature Source Pulse Rate 92 H Pulse Rate [Right] Respiratory Rate 15 Blood Pressure 151/98 H 155/96 H 135/99 H Blood Pressure [Right Arm] Blood Pressure Mean 115 109 112 Blood Pressure Mean [Right Arm] Blood Pressure Source Blood Pressure Position 02 Sat by Pulse Oximetry 97 Oxygen Delivery Method Oxygen Flow Rate (LPM) 09/25/25 02:55 09/25/25 03:00 09/25/25 03:10 Temperature Temperature Source Pulse Rate 95 H 92 H 96 H Pulse Rate [Right] Respiratory Rate 15 13 12 Blood Pressure 147/94 H 145/89 H 147/103 H Blood Pressure [Right Arm] Blood Pressure Mean 119 119 115 Blood Pressure Mean [Right Arm] Blood Pressure Source Blood Pressure Position 02 Sat by Pulse Oximetry 95 98 97 Oxygen Delivery Method Oxygen Flow Rate (LPM) 09/25/25 03:20 09/25/25 03:30 09/25/25 03:40 Temperature Temperature Source Pulse Rate 97 H 93 H 89 Pulse Rate [Right] Respiratory Rate 13 11 L 10 L Blood Pressure 152/103 H 151/97 H 153/107 H Blood Pressure [Right Arm] Blood Pressure Mean 119 121 122 Blood Pressure Mean [Right Arm] Blood Pressure Source Blood Pressure Position 02 Sat by Pulse Oximetry 96 97 98 Oxygen Delivery Method Oxygen Flow Rate (LPM) 09/25/25 03:46 09/25/25 04:01 09/25/25 04:15 Temperature Temperature Source Pulse Rate 92 H 93 H 90 Pulse Rate [Right] Respiratory Rate 13 9 L 13 Blood Pressure 136/96 H 159/109 H 132/88 Blood Pressure [Right Arm] Blood Pressure Mean 109 125 102 Blood Pressure Mean [Right Arm] Blood Pressure Source Blood Pressure Position 02 Sat by Pulse Oximetry 94 L 97 98 Oxygen Delivery Method Oxygen Flow Rate (LPM) 09/25/25 04:21 09/25/25 04:45 09/25/25 04:48 Temperature Temperature Source Pulse Rate 103 H 95 H Pulse Rate [Right] Respiratory Rate 12 12 Blood Pressure 127/90 140/93 H Blood Pressure [Right Arm] Blood Pressure Mean 110 106 Blood Pressure Mean [Right Arm] Blood Pressure Source Blood Pressure Position 02 Sat by Pulse Oximetry 96 96 Oxygen Delivery Method Room Air Oxygen Flow Rate (LPM) 09/25/25 04:50 09/25/25 04:55 09/25/25 04:55 Temperature Temperature Source Pulse Rate 95 H Pulse Rate [Right] Respiratory Rate 10 L Blood Pressure 151/94 H 165/92 H Blood Pressure [Right Arm] Blood Pressure Mean 104 105 Blood Pressure Mean [Right Arm] Blood Pressure Source Blood Pressure Position 02 Sat by Pulse Oximetry 96 Oxygen Delivery Method Room Air Oxygen Flow Rate (LPM) 09/25/25 05:00 09/25/25 05:05 09/25/25 05:10 Temperature Temperature Source Pulse Rate Pulse Rate [Right] Respiratory Rate Blood Pressure 142/85 H 145/85 H 147/86 H Blood Pressure [Right Arm] Blood Pressure Mean 110 101 97 Blood Pressure Mean [Right Arm] Blood Pressure Source Blood Pressure Position 02 Sat by Pulse Oximetry Oxygen Delivery Method Oxygen Flow Rate (LPM) 09/25/25 05:15 09/25/25 05:20 09/25/25 05:29 Temperature 98.6 F Temperature Source Pulse Rate 90 90 Pulse Rate [Right] Respiratory Rate 14 16 Blood Pressure 139/89 156/88 H 156/88 H Blood Pressure [Right Arm] Blood Pressure Mean 103 109 Blood Pressure Mean [Right Arm] Blood Pressure Source Automatic Cuff Blood Pressure Position Supine 02 Sat by Pulse Oximetry 96 Oxygen Delivery Method Room Air Oxygen Flow Rate (LPM) Lab Data Lab Results 10/25/25 22:45: WBC 12.7 H, RBC 5.72, Hgb 16.8, Hct 48.8, MCV 85.3, MCH 29.4, MCHC 34.4, RDW 13.6, Plt Count 298, MPV 9.7, Neut % (Auto) 59.2, Lymph % (Auto) 26.0, [place] % (Auto) 11.3 H, Eos % (Auto) 2.4, Baso % (Auto) 0.8, Neut # (Auto) 7.5, Lymph # (Auto) 3.3, [place] # (Auto) 1.4 H, Eos # (Auto) 0.3, Baso # (Auto) 0.1, PT 10.9, INR 0.98, Sodium 141, Potassium 3.7, Chloride 103, Carbon Dioxide 27, Anion Gap 14.7, BUN 30 H, Creatinine 1.30 H, Estimated Creat Clear 88, Estimated GFR 56 L, Est GFR ( Amer) 67, Glucose 119 H, Calcium 9.2, Magnesium 2.1, Total Bilirubin 0.8, AST 63 H, ALT 52, Alkaline Phosphatase 87, Troponin I 0.05 H, NT-Pro-B Natriuret Pep 110, Total Protein 9.3 H D, Albumin 4.2, Globulin 5.1 H, Albumin/Globulin Ratio 0.8 L, Lipase 246, TSH 1.43, Free T4 1.48, HCV Ab JOHNNY w/Rflx PCR Qn Negative, HIV Ag/Ab Combo Qual Negative 09/25/25 01:11: Troponin I 0.04 H 09/25/25 04:15: Troponin I 0.04 H Orders (Tests/Meds): ED MEDICATIONS Discontinued Medications Generic Name Dose Route Start Last Admin Trade Name Freq PRN Reason Stop Dose Admin Etomidate 10 mg 09/25/25 00:58 09/25/25 01:25 Etomidate 40mg/20ml Vial IV 09/25/25 00:59 10 mg ONCE ONE Administration Lactated Ringer's 1,000 mls @ 999 mls/hr 09/24/25 23:09 09/25/25 00:15 Lactated Ringer's 1000 Ml Bag IV 09/25/25 00:09 Infused .Q1H1M ONE Infusion Iopamidol 70 ml 09/24/25 23:48 09/24/25 23:49 Iopamidol-370 (76%);100ml Bottle IV 09/24/25 23:49 70 ml ONCE ONE Administration Metoprolol Tartrate 5 mg 09/24/25 22:49 09/24/25 22:53 Metoprolol Tartrate 5mg/5ml Vial IV 09/24/25 22:50 5 mg ONCE ONE Administration Metoprolol Tartrate 5 mg 09/24/25 23:52 09/25/25 00:41 Metoprolol Tartrate 5mg/5ml Vial IV 10/24/25 23:51 5 mg ONCE PRN Administration Tachyarrhythmias Sodium Chloride 50 ml 09/24/25 23:48 09/24/25 23:49 0.9 % Sodium Chloride 50 Ml Vial IV 09/24/25 23:49 50 ml ONCE ONE Administration Sodium Chloride 10 ml 09/24/25 23:48 09/24/25 23:49 Sodium Chloride 0.9% 10ml Syr (Rad Only) IV 09/24/25 23:49 10 ml ONCE ONE Administration ORDERS Category Date Time Status CT angio chest PE protocol Stat Cat Scan 09/24/25 22:45 Completed BNP [NT Pro Brain Natriuretic Pep.] Stat Lab 09/24/25 22:45 Completed CBC w/Auto Diff [Complete Blood Count Auto Diff] Stat Lab 09/24/25 22:45 Completed CMP [Comprehensive Metabolic Panel] Stat Lab 09/24/25 22:45 Completed Free T4 (Free Thyroxine) Stat Lab 09/24/25 22:45 Completed HIV Combo Stat Lab 09/24/25 22:45 Completed Hepatitis C Ab Qual. W/ RFX Stat Lab 09/24/25 22:45 Completed INR [Prothrombin Time INR] Stat Lab 09/24/25 22:45 Completed Lipase Stat Lab 09/24/25 22:45 Completed Magnesium Stat Lab 09/24/25 22:45 Completed TSH [Thyroid Stimulating Hormone] Stat Lab 09/24/25 22:45 Completed Trop I [Troponin I] Stat Lab 09/24/25 22:45 Completed Troponin I Q3H Lab 09/25/25 01:11 Completed Troponin I Q3H Lab 09/25/25 04:15 Completed 12-lead EKG Request [ECG Request] Stat Y 09/25/25 02:20 Ordered Medical Decision Narrative: Patient is a 65-year-old gentleman with a past medical history of a flutter, on Eliquis, hypertension and diabetes who presented to the emergency department with high blood pressure and tachycardia. On arrival, patient was tachycardic but vital signs were otherwise unremarkable. Differential includes but not limited to: A-flutter, electro abnormalities, ACS/CT, pulmonary embolism, amongst others. Labs were reviewed and interpreted by myself: CBC showed mild leukocytosis, hemoglobin was stable. INR was 1. CMP with mildly elevated creatinine at 1.3. Troponin elevated at 0.05. Patient's EKG looks like a flutter with a rate of 2-1 with a rate of 140s. On review of patient's old records, patient does have a history of a flutter. Patient takes 100 of metoprolol daily which she took this morning. Was given 3 doses of IV metoprolol with no significant relief patient continued to be in a flutter. CT scan was reviewed and interpreted by myself and showed no acute dissection or large pulmonary embolism. After further discussion with the patient, patient was willing to undergo cardioversion. Given that patient is on Eliquis I feel that this is safe to do. Patient was consented on the risks and benefits. Patient was signed out to the oncoming provider pending second troponin and final disposition. Elly BANKS: I assumed care of the patient at the time of handoff from the prior provider. On reassessment patient remains in a flutter, second troponin stable. He was sedated and cardioverted. After initial shock, he converted to sinus rhythm for approximate 1 minute and then went into A-fib. While he remained sedated, I shocked again and he converted to sinus rhythm and remained in sinus rhythm. Patient was placed in ED observation status for serial cardiac enzymes and to assess stability of rhythm. After 3 hours, repeat troponin remains unchanged. Patient remains in sinus rhythm. Given this, he was deemed appropriate discharge and outpatient management. Return precautions given. Critical Care <Joy Viramontes, DO - Last Filed: 09/25/25 01:12> Critical Care Time Critical Care Time: Yes Attestation: On 09/24/25, the high probability of a clinically significant, sudden or life threatening deterioration of the following system(s) required my full and direct attention, intervention and personal management. The time I documented below is in addition to time spent performing reported procedures but includes the following listed in this critical care notation. Total Time Total Critical Care Time: 35
[2025-09-24] MEDS: METOPROLOL TARTRATE 5MG/5ML VIAL 5 MG IV (22:53)
[2025-09-24 22:55] VITALS: BP 180/125; PULSE 144; RESP 14; O2SAT 98
[2025-09-24 22:56] LABS: Hematocrit 48.8 % (42.0-52.0); Hemoglobin 16.8 g/dL (14.1-18.0); Immature Granulocytes % 0.3 %; Mean Corpuscular HGB Conc 34.4 g/dL (31.8-35.4); Mean Corpuscular Hemoglobin 29.4 pg (27.0-31.2); Mean Corpuscular Volume 85.3 fl (80-94); Nucleated Red Blood Cells % 0 %; Platelet Count 298 K/mm3 (142-424); Red Blood Count 5.72 M/mm3 (4.60-6.20); Red Cell Distribution Width-SD 41.6 fL; White Blood Count 12.7 K/mm3 (4.8-10.8)
[2025-09-24 22:58] LABS: Albumin Level 4.2 g/dl (3.5-5.0); Chloride 103 mmol/L (98-107); Sodium 141 mmol/L (136-145)
[2025-09-24 22:59] LABS: Potassium 3.7 mmoL/L (3.5-5.1)
[2025-09-24 23:01] LABS: Alanine Aminotransferase 52 U/L (12-78); Albumin/Globulin Ratio 0.8 (1.1-1.8); Alkaline Phosphatase 87 U/L (38-126); Anion Gap 14.7 mEq/L (5-15); Aspartate Amino Transferase 63 U/L (17-59); Bilirubin,Total 0.8 mg/dl (0.2-1.3); Blood Urea Nitrogen 30 mg/dl (9-20); Calcium 9.2 mg/dl (8.4-10.2); Carbon Dioxide 27 mmol/L (22.0-30.0); Creatinine Clearance Estimated 88 mL/min (50-200); Creatinine,Serum 1.30 mg/dl (0.66-1.25); Estimated Glomerular Filt Rate 56 ml/min (>60); GFR (African American) 67 ML/MIN (>60); Globulin 5.1 g/dL (1.3-3.2); Glucose 119 mg/dl (74-100); Lipase 246 U/L (23-300); Total Protein,Serum 9.3 g/dl (6.3-8.2)
[2025-09-24 23:02] LABS: INR 0.98 (0.9-1.1); Prothrombin Time 10.9 seconds (10.1-12.5)
--- OUTSIDE RECORDS SUMMARY | 2025-09-24 23:03 | XMS_ITS | Patient Health Record ---
[facility] [address] [place] [id number] Care Team Providers Care Bee Rancher Name Role Phone Nicholas Heard Primary Care Provider [phone] Allergies Allergen (clinical drug ingredient) Drug/Non Drug [...] Level > 8% Poorly Controlled Diabetic Level P-Comprehensive Metabolic Pa jillian (CMP) Reviewed date:06/12/2025 04:17:40 PM Interpretation:FBS 137; GFR 74 Performing Lab: Notes/Report: CLIA: [id number] Bc Garnica MD, Afternoon Nanny [address] [place] [address] , [place] [address] Test performed by [facility] Sodium 143 135-145 mmol/L Potassium 3.7 3.5-5.3 [...] 0.5 <0.2-1.2 mg/dL A/G Ratio 1.6 1.1-2.5 P-Microalbumin/Creatinine, R andom Urine Sample Reviewed date:06/12/2025 04:17:41 PM Interpretation:normal Performing Lab: Notes/Report: Test performed by [facility] [address] [place] [address] , [address], [place] [address] Bc Garnica MD, Afternoon Nanny CLIA: [id number] Albumin/Creatinine Ratio, Urine 29 0-30 ug/m g Microalbumin, Urine, Random 1.3 Creatinine, Urine 45.2 CBC Venipuncture (in house) Reviewed date:06/12/2025 04:17:41 [...] 6.5% glycohemoglobin 6.5% 5 - 6.5 % P-PSA Reviewed date:06/12/2025 04:17:41 PM Interpretation:0.03 Performing Lab: Notes/Report: Test performed by [email or web address] [address] , [address], [place] [address] Bc Garnica MD, Afternoon Nanny CLIA: [id number] PSA 0.03 <4.00 ng/mL Please note this is an ultrasensitive PSA assay with a lower limit of detection of 0.014 ng/mL. This test is performed by the [employer] ECLIA methodology. Values obtained with different assay methods or kits cannot be directly compared. Reason For Referral No Information Medications Medication SIG (Take, Route, Frequency, Duration) Notes Start Date End Date Status Eliquis 2.5 MG Take 1 tablet by mouth twice daily Orally Twice a day Active Potassium Chloride ER 10 MEQ 1 cap(s) orally Once a day; Duration: 90 days Active Farxiga 5 MG 1 tablet Orally Once a day; Duration: 90 days Active amLODIPine Besylate 5 MG Take 1 tablet by mouth once daily; Duration: 90 Active Blood Glucose Monitor System w/Device as directed 06/12/2023 Active Lantus SoloStar 100 UNIT/ML 64 units Subcutaneous once daily; Duration: 90 days CLAIRE 01/04/2025 Active Lisinopril-hydroCHLOR Othiazide 10-12.5 MG 1 tab(s) orally once a day; Duration: 90 days Active Pantoprazole Sodium 40 MG 1 tab(s) Orally Once a day; Duration: 90 days Active Accu-Chek Softclix Lancets - as directed test three times per day and as needed 06/16/2023 Active Metoprolol Succinate ER 100 MG 1 tablet Orally Once a day; Duration: 90 days Active Benzonatate 100 MG 1 capsule as needed Orally Three times a day prn 12/09/2024 Not-Taking CPAP SUPPLIES Use per direction diagnosis G47.30 08/08/2020 Active Accu-Chek Guide - as directed test three times per day and as needed 06/16/2023 Active Cyclobenzaprine HCl 5 MG 1 tablet as needed Orally Three times a day 05/31/2024 Not-Taking Immunizations Vaccine Route Administration Date Status Comme nts COVID 19 Moderna IM Intramuscular 03/19/2021 Administered COVID 19 Moderna Unknown 04/16/2021 Administered Fluzone Quad (6months&older) IM Intramuscular 09/05/2015 Administered Fluzone Quad (6months&older) IM Intramuscular 09/24/2016 Administered Problems Problem Type SNOMED Code ICD Code Onset Dates Problem Status W/U Status Risk Notes Problem Type II diabetes mellitus without complication (458855900) Type 2 diabetes mellitus without complications (E11.9) Active confirmed Problem Essential hypertension (14383921) Essential (primary) hypertension (I10) Active confirmed Problem Hypertension (85498186) Hypertension (I10) Active confirmed Problem Atrial flutter (0622254) Atrial flutter with rapid ventricular response (I48.92) Active confirmed Problem Hyperglycemia due to type 2 diabetes mellitus (943462916428670) Type 2 diabetes mellitus with hyperglycemia (E11.65) Active confirmed Problem Hyperosmolarity due to secondary diabetes mellitus (385358636120556) Type 2 diabetes mellitus with hyperosmolarity without nonketotic hyperglycemic-hype rosmolar coma ([facility]) (E11.00) Active confirmed Problem Malignant tumor of prostate (250165351) Prostate cancer (C61) Active confirmed Problem History of malignant neoplasm of prostate (919974049) History of prostate cancer (Z85.46) Active confirmed Problem Long-term current use of insulin (483350202) longterm (current) use of insulin (Z79.4) Active confirmed Problem Cervical disc disease (142856527) Cervical disc disease (M50.90) Active confirmed Problem Kidney stone (54805288) Kidney stones (N20.0) Active confirmed Problem Sleep apnea (67057957) Sleep apnea, unspecified type (G47.30) Active confirmed Problem Body mass index 30.00 to 34.99 (554176016694397) BMI 34.0-34.9,adult (Z68.34) Active confirmed Problem Dyslipidemia (615924648) Dyslipidemia (E78.5) Active confirmed Problem Cervical myelopathy (011775853) Cervical myelopathy (G95.9) Active confirmed Problem Pressure injury of sacral region of back (disorder) (406846147) Pressure injury of skin of sacral region, unspecified injury stage (L89.159) Active confirmed Problem Localized, primary osteoarthritis of the ankle and/or foot (560609533) Arthropathy of ankle (M19.079) Active confirmed Vital Signs Heart Rate 81 /min 06/09/2025 Blood pressure diastolic 80 mm Hg 06/09/2025 Height 71 in 06/09/2025 Blood pressure systolic 150 mm Hg 06/09/2025 Weight 246.6 lbs 06/09/2025 BMI 34.39 kg/m2 06/09/2025 Encounters Encounter Location Date [facility] [address] [place] [id number] 12/09/2024 Nicholas [place] Type 2 diabetes mellitus without complications E11.9 ; Hypertension I10 ; 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 [address] [place] [id number] 06/09/2025 Nicholas [place] Type 2 diabetes mellitus without complications E11.9 ; Hypertension I10 ; longterm (current) use of insulin Z79.4 ; Dyslipidemia E78.5 ; Sleep apnea, unspecified type G47.30 ; Atrial flutter with rapid ventricular response I48.92 ; Prostate cancer C61 ; Cervical disc disease M50.90 ; Type 2 diabetes mellitus with hyperglycemia E11.65 and BMI 34.0-34.9,adult Z68.34 [facility] [address] [place], [place] [id number] 12/14/2024 R Antwon Félix [facility] [address] [place], [place] [id number] 12/21/2024 R Antwon Félix [facility] [address] [place], [place] [id number] 01/04/2025 R Antwon Félix Type 2 diabetes mellitus without complications E11.9 [facility] [address] [place], [place] [id number] 01/11/2025 R Antwon Félix [facility] [address] [place], [place] [id number] 02/18/2025 R Antwon Félix [facility] [address] [place], [place] [id number] 02/23/2025 R Antwon Félix Hypertension I10 [facility] [address] [place], [place] [id number] 02/25/2025 R Antwon Félix Hypertension I10 [facility] [address] [place], [place] [id number] 03/01/2025 R Antwon Félix Cough R05.9 [facility] [address] [place], [place] [id number] 03/02/2025 R Antwon Félix [facility] [address] [place], [place] [id number] 06/12/2025 R Antwon Félix [facility] [address] [place], [place] [id number] 08/22/2025 R Antwon Félix Type 2 diabetes mellitus without complications E11.9 [facility] [address] [place], [place] [id number] 09/01/2025 R Antwon Félix Type 2 diabetes mellitus without complications E11.9 [facility] [address] [place] [id number] 09/20/2025 Nicholas Heard Sleep apnea, unspecified type G47.30 Assessments Encounter Date Diagnosis (ICD Code) Assessment Notes Treatment Notes Treatment Clinical Notes Section Notes 12/09/2024 Type 2 diabetes mellitus without complications (ICD-10 - E11.9) A1c is marginally improved but not at goal. Again instructed on titrating his insulin dose and reinforced diet and weight loss. 01/04/2025 Type 2 diabetes mellitus without complications (ICD-10 - E11.9) 02/23/2025 Hypertension (ICD-10 - I10) 02/25/2025 Hypertension (ICD-10 - I10) 03/01/2025 Cough (ICD-10 - R05.9) 06/09/2025 Type 2 diabetes mellitus without complications (ICD-10 - E11.9) Reinforced diet and weight loss. 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 (ICD-10 - Z79.4) 12/09/2024 Hypertension (ICD-10 - I10) 12/09/2024 Dyslipidemia (ICD-10 - E78.5) 06/09/2025 Dyslipidemia (ICD-10 - E78.5) 06/09/2025 Sleep apnea, unspecified type (ICD-10 - G47.30) 12/09/2024 Sleep apnea, unspecified type (ICD-10 - G47.30) 12/09/2024 Atrial flutter with rapid ventricular response (ICD-10 - I48.92) 06/09/2025 Atrial flutter with rapid ventricular response (ICD-10 - I48.92) 12/09/2024 Prostate cancer (ICD-10 - C61) 06/09/2025 Prostate cancer (ICD-10 - C61) 12/09/2024 Cervical disc disease (ICD-10 - M50.90) 06/09/2025 Cervical disc disease (ICD-10 - M50.90) 06/09/2025 Type 2 diabetes mellitus with hyperglycemia (ICD-10 - E11.65) 12/09/2024 Cough (ICD-10 - R05.9) 06/09/2025 BMI 34.0-34.9,adult (ICD-10 - Z68.34) 06/09/2025 Other Patient instructed to return to office Annually for Annual Wellness Visits to include annual screenings of Pain assessment, Functional Ability assessment, Cognitive Ability assessment, Fall Risk assessment, Depression screening and Bladder control screening. Plan Of Treatment Next Appt Details Provider Name:Nicholas Ho, 12/13/2025 09:00:00 AM, [address], [address], [place], [place], [id number], Insurance Providers Payer Name Payer Address Payer Phone Subscriber Number Group Number Insured Name Patient Relationship to Insured Coverage Start Date Coverage End Date [employer] (MEDICAR E) [address] [address] [place] [address] [id number] MURTAZA ISBELL Self - patient is the insured Medications Administered Medication Instructions Date of Administration Dosage Notes Depo- Medrol 40 mg/ml 01/14/2017 2 mL Depo- Medrol 40 mg/ml 02/28/2017 1.5 mL Depo- Medrol 40 mg/ml 06/21/2022 1.5 mL Depo- Medrol 40 mg/ml 04/06/2024 1.5 mL Medical (General) History Medical History History ICD Code hypertension Type 2 DM MAZIN White coat syndrome Prostate cancer - diagnose 01/2020 [place] palsy - 10/2021 Rapid atrial flutter - cardioverted 12/20 21 GERD Kidney stones Surgical History Surgery Date(Month/Year) carpal tunnel both hands esophageal dilitation prostatectomy/ Dr. Sheriff 03/2020 open procedure to remove kidney stone Hospitalization History Reason Date(Month/Year) [facility] ER-hurt right knee while in training 11/04/11
--- OUTSIDE RECORDS SUMMARY | 2025-09-24 23:03 | XMS_ITS | Data Portability ---
Author Organization [facility] JACKIE Bobby [place] CLOSED Address [address] [facility] [address] [place] [address] Care Team Providers [employer] Name Role Phone IBETH RAJANI Primary Care Provider Assessment No assessment recorded. Plan of Treatment Reminders Order Date Submit Date Provider Last Modified By Organization Details Last Modified Time Details Appointments None recorded. Lab urinalysis microscopic panel, automated 2021 022 [facility] [address], [address] [facility], [place], [address], 16:33:32 PSA, serum or plasma 2021 022 [facility] [address], [address] [facility], [place], [address], 10:48:41 urinalysis microscopic panel, automated 2020 021 [facility], [address] [facility], [place], [address], 10:47:49 PSA, serum or plasma 2020 021 MIROSLAVA [facility] [address], [address] [facility], [place], [address], 15:56:42 Referral None recorded. Procedures None recorded. Surgeries None recorded. Imaging None recorded. Medication Orders None recorded. Patient TargetsNo targets recorded. Patient Instructions Encounter Date Encounter Id Patient Instructions Last Modified By Organization Details Last Modified Time 09/12/2021 [id number] Recent UTI with some persistent microscopic hematuria-proceed with renal ultrasound and cystoscopy Discussed Jaya for slight THEODORE He has no interested in correction of ED at this time Next PSA in 6 months Not available 09/12/2021 10:47:27 09/21/2021 [id number] cysto unremarkable, renal u/s pending and to be checked Plan ov 6 mo with psa Not available 09/21/2021 10:37:37 03/26/2022 [id number] PSA undetectable Urine has minimal microscopic hematuria-no additional hematuria workup necessary at this time. I recommended continued 6 month interval UA and PSA - referral made to [facility] urology due to insurance prohibition with LC Not available 03/26/2022 16:29:32 Reason for Referral None Reported. Results Created Date Observation Date Name Description Value Unit Range Abnormal Flag Note LastModifiedBy Organization Detail LastModifiedTime 09/12/2009/12/2021 urina lysis micro scopi c panel , autom ated Unknown Analyte Clean Catch Not Available [facility] [address] [place], [address], 09/12/2021 10:38:49 09/12/2009/12/2021 urina lysis micro scopi c panel , autom ated Unknown Analyte Yellow Not Available [facility] [address] [place], [address], 09/12/2021 10:38:49 09/12/2009/12/2021 urina lysis micro scopi c panel , autom ated Unknown Analyte Cloudy Not Available [facility] [address] [place], [address], 09/12/2021 10:38:49 09/12/2009/12/2021 urina lysis micro scopi c panel , autom ated Unknown Analyte 1.015 Not Available [facility] [address] [facility], [place], [address], 09/12/2021 10:38:49 09/12/2009/12/2021 urina lysis micro scopi c panel , autom ated Unknown Analyte 6.0 Not Available [facility] [address] [facility], [place], [address], 09/12/2021 10:38:49 09/12/2009/12/2021 urina lysis micro scopi c panel , autom ated Unknown Analyte 500 Kriss/ul (++) Not Available [facility] [address] [facility], [place], [address], 09/12/2021 10:38:49 09/12/2009/12/2021 urina lysis micro scopi c panel , autom ated Unknown Analyte Negati ve Not Available [facility] [address] [facility], [place], [address], 09/12/2021 10:38:49 09/12/2009/12/2021 urina lysis micro scopi c panel , autom ated Unknown Analyte Negati ve Not Available [facility] [address] [facility], [place], [address], 09/12/2021 10:38:49 09/12/2009/12/2021 urina lysis micro scopi c panel , autom ated Unknown Analyte >1000 mg/dl Not Available [facility] [address] [facility], [place], [address], 09/12/2021 10:38:49 09/12/2009/12/2021 urina lysis micro scopi c panel , autom ated Unknown Analyte 15 mg/dl (Sm) Not Available [facility] [address] [facility], [place], [address], 09/12/2021 10:38:49 09/12/2009/12/2021 urina lysis micro scopi c panel , autom ated Unknown Analyte Normal Not Available [facility] [address] [facility], [place], [address], 09/12/2021 10:38:49 09/12/2009/12/2021 urina lysis micro scopi c panel , autom ated Unknown Analyte Negati ve Not Available [facility] [address] [facility], [place], [address], 09/12/2021 10:38:49 09/12/2009/12/2021 urina lysis micro scopi c panel , autom ated Unknown Analyte 250 Nile/ul Not Available [facility] [address] [facility], [place], [address], 09/12/2021 10:38:49 09/12/2009/12/2021 urina lysis micro scopi c panel , autom ated Unknown Analyte AUTO Not Available [facility] [address] [facility], [place], [address], 09/12/2021 10:38:49 09/12/2009/12/2021 urina lysis micro scopi c panel , autom ated Unknown Analyte Occ Not Available [facility] [address] [facility], [place], [address], 09/12/2021 10:38:49 09/12/2009/12/2021 urina lysis micro scopi c panel , autom ated Unknown Analyte 10-20 Not Available [facility] [address] [facility], [place], [address], 09/12/2021 10:38:49 09/12/2009/12/2021 urina lysis micro scopi c panel , autom ated Unknown Analyte None Seen Not Available [facility] [address] [facility], [place], [address], 09/12/2021 10:38:49 09/12/2009/12/2021 urina lysis micro scopi c panel , autom ated Unknown Analyte Trace Not Available [facility] [address] [facility], [place], [address], 09/12/2021 10:38:49 09/10/2009/10/2021 PSA, serum or plasm a PSA <0.04 NG/mL 0.0 - 4.0 Not Available [facility] [address] [place] [address], [place], [address], 09/10/2021 10:59:40 03/25/20 22 03/25/2022 PSA, serum or plasm a PSA <0.04 NG/mL 0.0 - 4.0 Not Available [facility] [address] [place], [address], 03/25/2022 10:42:42 03/26/20 22 03/26/2022 urina lysis micro scopi c panel , autom ated Unknown Analyte Clean Catch Not Available [facility] [address] [place], [address], 03/26/2022 16:29:25 03/26/20 22 03/26/2022 urina lysis micro scopi c panel , autom ated Unknown Analyte Yellow Not Available [facility] [address], [address], 03/26/2022 16:29:25 03/26/20 22 03/26/2022 urina lysis micro scopi c panel , autom ated Unknown Analyte Clear Not Available [facility] [address] [facility], [place], [address], 03/26/2022 16:29:25 03/26/20 22 03/26/2022 urina lysis micro scopi c panel , autom ated Unknown Analyte 1.025 Not Available [facility] [address] [facility], [place], [address], 03/26/2022 16:29:25 03/26/20 22 03/26/2022 urina lysis micro scopi c panel , autom ated Unknown Analyte 5.0 Not Available [facility] [address] [facility], [place], [address], 03/26/2022 16:29:25 03/26/20 22 03/26/2022 urina lysis micro scopi c panel , autom ated Unknown Analyte 500 Kriss/ul (++) Not Available [facility] [address] [facility], [place], [address], 03/26/2022 16:29:25 03/26/20 22 03/26/2022 urina lysis micro scopi c panel , autom ated Unknown Analyte Negati ve Not Available [facility] [address] [place], [address], 03/26/2022 16:29:25 03/26/20 22 03/26/2022 urina lysis micro scopi c panel , autom ated Unknown Analyte Negati ve Not Available [facility] [address] [place], [address], 03/26/2022 16:29:25 03/26/20 22 03/26/2022 urina lysis micro scopi c panel , autom ated Unknown Analyte Normal Not Available [facility] [address] [place], [address], 03/26/2022 16:29:25 03/26/20 22 03/26/2022 urina lysis micro scopi c panel , autom ated Unknown Analyte Negati ve Not Available [facility] [address] [facility], [place], [address], 03/26/2022 16:29:25 03/26/20 22 03/26/2022 urina lysis micro scopi c panel , autom ated Unknown Analyte Normal Not Available [facility] [address] [facility], [place], [address], 03/26/2022 16:29:25 03/26/20 22 03/26/2022 urina lysis micro scopi c panel , autom ated Unknown Analyte Negati ve Not Available [facility] [address] [facility], [place], [address], 03/26/2022 16:29:25 03/26/20 22 03/26/2022 urina lysis micro scopi c panel , autom ated Unknown Analyte 250 Nile/ul Not Available [facility] [address] [facility], [place], [address], 03/26/2022 16:29:25 03/26/20 22 03/26/2022 urina lysis micro scopi c panel , autom ated Unknown Analyte AUTO Not Available [facility] [address] [facility], [place], [address], 03/26/2022 16:29:25 03/26/20 22 03/26/2022 urina lysis micro scopi c panel , autom ated Unknown Analyte Occ Not Available [facility] [address] [facility], [place], [address], 03/26/2022 16:29:25 03/26/20 22 03/26/2022 urina lysis micro scopi c panel , autom ated Unknown Analyte Occ Not Available [facility] [address] [facility], [place], [address], 03/26/2022 16:29:25 03/26/20 22 03/26/2022 urina lysis micro scopi c panel , autom ated Unknown Analyte None Seen Not Available [facility] [address] [facility], [place], [address], 03/26/2022 16:29:25 03/26/20 22 03/26/2022 urina lysis micro scopi c panel , autom ated Unknown Analyte None Seen Not Available [facility] [address] [facility], [place], [address], 03/26/2022 16:29:25 09/21/20 21 09/21/2021 US, retro perit oneum , limit ed [facility] [address] [place] [address] Patien roger Name: MURTAZA duran : 961 Brittany duran Orderi ng Provid er: KATHRYN S G RAY EXAM DATE: 2020 EXAM: US KIDNEY BILAT WO BLADDE R CLINIC AL INFORM ATION: Hematu anitha. TECHNI QUE: Multip le sonogr aphic images of both kidney s were obtain ed. COMPAR HALIE: None. FINDIN GS: RIGHT KIDNEY : Length = 13.9 cm. No hydron ephros is, mass or stone. LEFT KIDNEY : Length = 12.5 cm. There is no hydron ephros is. Sugges tion of a few small nonobs tructi ng stones . There is a 1.5 cm diamet er simple cyst in the left kidney . IMPRES AGUILAR: 1. Possib le tiny nonobs tructi ng left renal stone. 2. Simple cyst left kidney . 3. Incide ntal note is made of fatty infilt ration of the liver. Interp reted By: Sloan Mcdaniel MD Electr onical ly Signed By: Sloan Mcdaniel MD on 2020 3:01 PM [facility] Radiology [facility] [address] [facility], [place], [address], 09/25/2021 09:22:47 09/15/2009/15/2023 XR, cervi harley spine , 2 or 3 view No observ ation record ed. [email or web address] [facility] [address], [place], [address], 09/22/2023 08:53:57 Result Notes None recorded. Procedures Surgical History Date Name Laterality Status Provider Name and Address Organization Details Recorded Time 03/24/20 20 Prostatectomy completed Amber Wagoner [facility] 03/30/2020 13:12:24 01/21/20 20 Prostate biopsy, any mthd completed Emilie Rodriguez [facility] 02/16/2020 09:16:36 Carpal tunnel surgery completed Emilie Rodriguez [facility] 02/16/2020 09:18:44 Imaging Results None recorded. Procedure Notes None recorded. Medical Equipment None Reported. Allergies Allergen ID Allergen Name Allergen Category Reaction Reaction Severity Criticality Documentation Date Start Date Code Code System Note Provider Name and Address Organization Details Recorded Time [id number] amoxicill in medicatio n Not available Not available Not available 02/16/2020 723 RxNorm Emilie alonso [facility] 0 09:17:23 Medications Name Sig Start Date Stop Date Status Note LastModified by Organization Details LastModified Time metformin 500 mg tablet TAKE 1 TABLET BY MOUTH ONCE DAILY active Not Available Not Available No t Available potassium chloride ER 10 mEq capsule,ext ended release TAKE 1 CAPSULE BY MOUTH ONCE DAILY active Not Available Not Available No t Available azithromyci n 250 mg tablet TAKE 2 TABLETS BY MOUTH ON DAY 1 AND THEN TAKE 1 TABLET BY MOUTH ONCE A DAY ON DAY 2 THROUGH DAY 5 09/12 completed Not Available Not Available Not Available metoprolol succinate ER 50 mg tablet,exte nded release 24 hr TAKE 1 TABLET BY MOUTH ONCE DAILY active Not Available Not Available No t Available valacyclovi r 1 gram tablet TAKE 1 TABLET BY MOUTH THREE TIMES DAILY FOR 7 DAYS FOR NEW ONSET CARBALLO S PALSY(INI TIATE PRESCRIPT ION IN THE EVENT OF NEW ONSET CARBALLO S PALSY IF NORMAL KIDNEY FUNCTION KNOWN AND SEEK IMMEDIATE MEDICAL ATTENTION ) active Not Available Not Available No t Available hydrocodone 5 mg-acetamin ophen 325 mg tablet 03/30 completed Not Available Not Available Not Available meloxicam 15 mg tablet TAKE 1 TABLET BY MOUTH ONCE DAILY FOR PAIN (NEEDS FOLLOW UP APPOINTME NT PRIOR TO ADDITIONA L REFILL) active Not Available Not Available No t Available prednisone 20 mg tablet TAKE 1 TABLET BY MOUTH TWICE DAILY active Not Available Not Available No t Available metoprolol succinate ER 100 mg tablet,exte nded release 24 hr TAKE 1 TABLET BY MOUTH ONCE DAILY active Not Available Not Available No t Available Accu-Chek Softclix Lancets USE TO CHECK GLUCOSE BEFORE MEAL(S) AND AT BEDTIME active Not Available Not Available No t Available amlodipine 5 mg tablet TAKE 1 TABLET BY MOUTH ONCE DAILY active Not Available Not Available No t Available prochlorper azine maleate 10 mg tablet TAKE 1 TABLET BY MOUTH THREE TIMES DAILY active Not Available Not Available No t Available sulfamethox azole 800 mg-trimetho prim 160 mg tablet 09/12 completed Not Available Not Available Not Available famciclovir 500 mg tablet TAKE 1 TABLET BY MOUTH EVERY 8 HOURS active Not Available Not Available No t Available tamsulosin 0.4 mg capsule TAKE 1 CAPSULE BY MOUTH ONCE DAILY active Not Available Not Available No t Available meclizine 25 mg tablet TAKE 1 TABLET BY MOUTH THREE TIMES DAILY active Not Available Not Available No t Available doxycycline monohydrate 100 mg capsule 09/12 completed Not Available Not Available Not Available pantoprazol e 40 mg tablet,jamey yed release TAKE 1 TABLET BY MOUTH ONCE DAILY active Not Available Not Available No t Available mupirocin 2 % topical ointment APPLY TOPICALLY TWICE DAILY active Not Available Not Available No t Available gabapentin 100 mg capsule TAKE 1 CAPSULE BY MOUTH THREE TIMES DAILY active Not Available Not Available No t Available lisinopril 10 mg-hydrochl orothiazide 12.5 mg tablet TAKE 1 TABLET BY MOUTH ONCE DAILY FOR 90 DAYS active Not Available Not Available No t Available levofloxaci n 500 mg tablet TAKE 1 TABLET BY MOUTH ONCE DAILY AT 9PM FOR 5 DAYS FINISH ALL MEDICINE active Not Available Not Available No t Available metformin ER 500 mg tablet,exte nded release 24 hr TAKE 1 TABLET BY MOUTH ONCE DAILY 12/09 /2020 completed Not Available Not Available Not Available naproxen 500 mg tablet TAKE 1 TABLET BY MOUTH TWICE DAILY active Not Available Not Available No t Available oxycodone 5 mg tablet 03/30 completed Not Available Not Available Not Available insulin lispro (U-100) 100 unit/mL subcutaneou s pen USE PER LOW INTENSITY SLIDING SCALE BEFORE MEALS AND AT BEDTIME FOR 30 DAYS active Not Available Not Available No t Available sildenafil (pulmonary hypertensio n) 20 mg tablet TAKE 2 TO 5 TABLETS BY MOUTH NEEDED FOR SEXUAL ACTIVITY active Not Available Not Available No t Available Super B Complex 03/30 completed Not Available Not Available Not Available Lantus Solostar U-100 Insulin 100 unit/mL (3 mL) subcutaneou s pen INJECT 20 UNITS SUBCUTANE OUSLY AT BEDTIME active Not Available Not Available No t Available nebivolol 5 mg tablet Take 1 tablet every day by oral route. 03/30 completed Not Available Not Available Not Available Eliquis 5 mg tablet TAKE 1 TABLET BY MOUTH TWICE DAILY active Not Available Not Available No t Available Accu-Chek Guide test strips USE 1 STRIP TO CHECK GLUCOSE ONCE DAILY DIRECTED active Not Available Not Available No t Available Accu-Chek Guide Me Glucose Meter TEST BEFORE MEAL(S) AND AT BEDTIME FOR 30 DAYS active Not Available Not Available No t Available Vitals Date Recorded Body height Body mass index (BMI) Body weight Provider Name and Address Organization Details Last Updated DateTime 03/26/2022 177.8 cm 35.4 kg/m2 249564.32 g Amber Wagoner [facility] 03/26/2022 16:00:52 Date Recorded Body height Body mass index (BMI) Body weight Provider Name and Address Organization Details Last Updated DateTime 09/12/2021 177.8 cm 35.4 kg/m2 245753.32 g Emilie Rodriguez [facility] 09/12/2021 10:31:15 Social History Question Answer Notes LastModified by Organizat ion Details LastModified Time Tobacco Smoking Status Never Smoker Emilie alonso [facility] 02/16/2020 09:19:09 How Much Tobacco Do You Chew? None Information not available 02/16/2020 Marital Status Informatio n not available 02/16/2020 How Much Tobacco Do You Smoke? No Information not available 02/16/2020 Sex: Unknown Functional Status Question Answer Note LastModified by Organizat ion Details LastModified Time What is your level of alcohol consumption? None Information not available 02/16/2020 Do you or have you ever used smokeless tobacco? Never used smokeless tobacco Information not available 02/16/2020 What is your occupation? [employer]arnish [employer] Information not available 02/16/2020 Do you or have you ever used e-cigarettes or vape? Never used electronic cigarettes Information not available 02/16/2020 Mental Status None recorded. Family History Relationship Description Onset Age of this Age Resolved Age Notes LastModified by Organization Details LastModified Time Father No current problems or disability Not available 02/15 09:30:30 Mother No current problems or disability Not available 02/15 09:30:30 Medical History Condition Response Acid Reflux (GERD) Y Hypertension Y Sleep Apnea Y Past Encounters Encounter ID Performer Location Encounter Start Date Encounter Closed Date Diagnosis/Indication Diagnosis SNOMED-CT Code Diagnosis ICD10 Code Diagnosis IMO Codes Diagnosis Note [id number] GUS PIERRE MD UROLOGY [facility] [address] [place] [address] 02/16/2020 09:09:50 02/25/2020 10:07:57 Malignant neoplasm of prostate 165694626 C61 Neoplasm of kidney 64529 0001 D49.519 9 mm indetermin ant L kidney [id number] GUS PIERRE MD UROLOGY [facility] [address] [place] [address] 03/30/2020 12:48:03 03/31/2020 12:25:59 Primary malignant neoplasm of prostate 86432895 C61 [id number] Gl 4+3=7 with + margins + SV [id number] GUS PIERRE MD UROLOGY [facility] [address] [place] [address] 04/27/2020 09:21:11 04/27/2020 12:11:19 Malignant neoplasm of prostate 704634939 C61 [id number] GUS PIERRE MD UROLOGY [facility] [address] [place] [address] 05/03/2020 10:38:25 05/03/2020 13:56:30 Primary malignant neoplasm of prostate 13017732 C61 [id number] Gl 4+3=7 with + margins + SV [id number] GUS PIERRE MD UROLOGY [facility] [address] [place] [address] 08/04/2020 10:06:52 08/04/2020 10:44:31 Malignant neoplasm of prostate 646220618 C61 [id number] GUS PIERRE MD UROLOGY [facility] [address] [place] [address] 08/09/2020 10:37:04 08/09/2020 14:29:53 Primary malignant neoplasm of prostate 73356948 C61 [id number] Gl 4+3=7 with + margins + SV Impotence of organic origin 492035888 N52.9 [id number] GUS PIERRE MD UROLOGY [facility] [address] [place] [address] 2 11/06/2020 11:03:05 11/06/2020 11:07:23 Malignant neoplasm of prostate 553134708 C61 [id number] GUS PIERRE MD UROLOGY [facility] [address] [place] [address] 2 11/08/2020 10:21:27 11/08/2020 12:07:45 Primary malignant neoplasm of prostate 59281078 C61 [id number] Gl 4+3=7 with + margins + SV Impotence of organic origin 823152515 N52.9 Urethral i ntrinsic sphincter deficiency 6653971419 9101 N36.42 Urinary incontinence 165 920265 R32 [id number] GUS PIERRE MD UROLOGY [facility] [address] [place] [place] [address] 03/09/2021 09:48:27 03/09/2021 10:05:40 Malignant neoplasm of prostate 966925906 C61 [id number] GUS PIERRE MD UROLOGY [facility] [address] [place] [address] 03/13/2021 10:03:04 03/13/2021 10:53:22 Primary malignant neoplasm of prostate 10527682 C61 [id number] Gl 4+3=7 with + margins + SV Impotence of organic origin 616931121 N52.9 Urethral i ntrinsic sphincter deficiency 3676544793 9101 N36.42 Urinary incontinence 165 142499 R32 [id number] GUS PIERRE MD UROLOGY [facility] [address] [place] [address] 09/10/2021 10:35:27 09/10/2021 11:00:18 Malignant neoplasm of prostate 811344053 C61 [id number] GUS PIERRE MD UROLOGY [facility] [address] [place] [address] 09/12/2021 10:15:50 09/12/2021 10:55:28 Primary malignant neoplasm of prostate 47688403 C61 [id number] Gl 4+3=7 with + margins + SV Urinary incontinence 165 796127 R32 Microscopic hematuria 19 0572243 R31.29 Acute urin bird tract infection 530221528 N39.0 [id number] GUS PIERRE MD SURGERY SCHEDULE [address] [place] [address] 09/21/2021 08:02:58 09/21/2021 08:03:43 Primary malignant neoplasm of prostate 77135279 C61 [id number] Gl 4+3=7 with + margins + SV Urinary incontinence 165 287069 R32 Microscopic hematuria 19 8314583 R31.29 Acute urin bird tract infection 771537730 N39.0 [id number] GUS PIERRE MD UROLOGY [facility] [address] [place] [address] 2 03/25/2022 10:30:56 03/25/2022 10:43:59 Malignant neoplasm of prostate 165603352 C61 [id number] GUS PIERRE MD UROLOGY [facility] [address] [place] [address] 03/26/2022 15:40:00 03/26/2022 16:33:45 Primary malignant neoplasm of prostate 20611113 C61 [id number] Gl 4+3=7 with + margins + SV Urinary incontinence 165 844205 R32 Microscopic hematuria 19 8422382 R31.29 Acute urin bird tract infection 147997445 N39.0 Health Concerns Section Related Observation LastModified by Organization Detai ls LastModified Time None Recorded Concern Status LastModified by Organization Details LastModified Time None Recorded Advance Directives Directive None Recorded Payers Insurance Date Sequence Insurance Name Policy Number Policy Munoz Covered Member ID Munoz Member ID Guarantor Name 04/03/2022 1 [employer] (HMO) [id number] Murtaza Zamudio [id number] Murtaza Zamudio 04/08/2025 PAYMENT PLAN Murtaza Zamudio 12/28/2020 1 [place] [id number] Murtaza Zamudio [id number] Murtaza Zamudio 12/28/2020 1 [place] [id number] Murtaza Zamudio [id number] Murtaza Zamudio 09/10/2021 1 [place] [id number] Murtaza Zamudio Sr [id number] Murtaza Zamudio 03/25/2022 1 [facility] [employer] - MULTIPLAN (LIMITED BENEFIT PLAN) [id number] Murtaza Zamudio [id number] Murtaza Zamudio Notes Date Note Type Note Provider Name and Address Organization Details Recorded Time 09/12/2021 text/html 61 yo male returns for a 6 mo f/u visit previously seen due to Prostate Cancer-s/p RALRPX in 03/2020. His PSA Friday was <0.04, he denies recent weight loss or bone pain. He continues to have incontinence but is stable from his last visit. He denies new voiding complaints today - He describes a very slight leak perhaps once a day that occurs with lifting and straining, wears a light pad for this reason.. He said he had some slight burning a couple of weeks ago and went PCP who found UTI and put him on antibiotic which he completed yesterday. GUS PIERRE MD [facility] [place], [phone], [facility] 09/12/2021 10:47:56 03/26/2022 text/html 61 yo male returns for a 6 mo f/u visit previously seen due to Prostate Cancer-s/p RALRPX in 03/2020 and for microscopic hematuria. He has never had gross hematuria. His PSA yesterday was <0.04, he denies recent weight loss or bone pain. GUS PIERRE MD [address] [place], [id number], [facility] 03/26/2022 16:33:40
[2025-09-24 23:13] LABS: Troponin I 0.05 ng/ml (0.00-0.034)
[2025-09-24] MEDS: LACTATED RINGERS 1000ML 1,000 ML 999 ML IV (23:13)
[2025-09-24 23:19] LABS: NT Pro Brain Natriuretic Pep. 110 pg/mL (0-125)
[2025-09-24 23:25] LABS: Free T4 (Free Thyroxine) 1.48 ng/dl (0.78-2.19)
[2025-09-24 23:31] LABS: Magnesium 2.1 mg/dl (1.6-2.3)
[2025-09-24 23:40] LABS: Thyroid Stimulating Hormone 1.43 uIU/mL (0.465-4.68)
[2025-09-24] MEDS: 0.9 % SODIUM CHLORIDE 50 ML VIAL IV (23:49)
[2025-09-24] MEDS: IOPAMIDOL-370 (76%);100ML BOTTLE 70 ML IV (23:49)
[2025-09-24] MEDS: SODIUM CHLORIDE 0.9% 10ML SYR (RAD ONLY) 10 ML IV (23:49)
[2025-09-24 23:52] VITALS: BP 159/112; PULSE 137; RESP 15; O2SAT 97
[2025-09-24 23:58] LABS: Hepatitis C Ab Qual. W/ RFX NEGATIVE (Negative)
[2025-09-25] VITALS (54 sets, daily range): BP systolic 127–178; BP diastolic 85–137; PULSE 85–141; RESP 9–16; TEMP 37; O2SAT 93–100
[2025-09-25] MEDS: METOPROLOL TARTRATE 5MG/5ML VIAL 5 MG IV ×3 (00:11→00:41)
[2025-09-25] MEDS: ETOMIDATE 40MG/20ML VIAL 10 MG IV (01:25)
--- NOTE | 2025-09-25 01:30 | ECG_ITS ---
APPROVED REPORT Exam: Resting ECG HR:90 bpm ECG Measurements Heart Rate 90 AXES NV 170 P 55 QRSd 84 QRS -22 QT 350 T 47 QTc 398 Conclusion SINUS RHYTHM BORDERLINE LEFT AXIS DEVIATION [QRS AXIS < -20] BORDERLINE ECG UNCONFIRMED REPORT Electronically signed by : ERICA GARCIA, 09/27/2025 06:25:48
[2025-09-25 01:42] LABS: Troponin I 0.04 ng/ml (0.00-0.034)
--- NOTE | 2025-09-25 02:16 | PC.NURSE ---
0131 post cardioversion EKG performed
[2025-09-25 05:06] LABS: Troponin I 0.04 ng/ml (0.00-0.034)
== END 2025-09-25 05:31 | disposition home or self-care (01) ==
PROVIDERS: Emergency Provider Student in an Organized Health Care Education/Training Program; PCP Family Medicine
DX: I48.92 Unspecified atrial flutter (principal); R07.89 Other chest pain; R00.0 Tachycardia, unspecified; I10 Essential (primary) hypertension; E11.9 Type 2 diabetes mellitus without complications; Z79.01 Long term (current) use of anticoagulants; Z79.4 Long term (current) use of insulin
CPT/HCPCS: 71275; 80053; 83690; 83735; 83880; 84439; 84443; 84484; 85025; 85610; 86803; 87389; 92960; 93005; 96361; 96374; 96376; 99152; 99285; J7120; Q9967